=== PATIENT | female | born 1960 | race Caucasian/White ===

== ENCOUNTER → 2016-10-30 | Outpatient (CLI) | payer BC, OTHER ==
[2016-10-30 07:07] LABS: Blood Urea Nitrogen 16 mg/dL (7-17); Non-African American GFR(MDRD) >60 (>60 ml/min/1.73 sqM)
--- NOTE | 2016-10-30 09:14 | MR ---
EXAMINATION TYPE: MR lumbar spine wo/w con DATE OF EXAM: 10/30/2016 7:58 AM COMPARISON: MRI lumbar spine January 19, 2016 HISTORY: Lumbago per order, back pain going down left leg since September, surgery 2005 per patient. TECHNIQUE: Multiplanar, multisequence images of the lumbar spine is performed without and with IV contrast, util izing 14 mL intravenous MultiHance FINDINGS: Sagittal images of the lumbar spine show vertebral body heights and alignment to appear sat isfactory. Multilevel disc desiccation is redemonstrated. There is mild disc space narrowing posterio rly L4-L5 level redemonstrated. Small posterior disc herniation L3-L4 level as seen on sagittal image s slightly more prominent versus study. The conus medullaris is normal in position and signal ending at mid L1 vertebral body level. The bone marrow signal intensity is within normal limits. No suspici ous postcontrast enhancement is identified. Mild multilevel anterior spurring is redemonstrated. Axial images show the T12-L1, L1-L2, and L2-L3 levels all to remain within normal limits with excepti on of multilevel mild facet arthropathy, no significant change from prior. Axial images at L3-L4 level show mild broad disc bulge mildly effacing the anterior thecal sac slight ly more prominent with mild facet degenerative changes redemonstrated bilaterally. Bilateral neural f oramina remain patent. Axial images at L4-L5 level redemonstrate increased signal in left posterior aspect consistent with a nnular tear. There is mild to moderate broad disc bulge with a slightly more prominent left foraminal disc protrusion component redemonstrated. There are mild to moderate facet degenerative changes rede monstrated bilaterally with ligamentum flavum hypertrophy. There is is persistent mild left greater t bonilla right anterior-inferior neural foraminal narrowing redemonstrated. No significant change from jaylon or study is seen. Axial images at L5-S1 level redemonstrate mild to moderate facet degenerative changes bilaterally. Sp inal canal is preserved and bilateral neural foramina are patent. Findings stable from prior. Distal common bile duct measures 11-13 mm in diameter perhaps mildly dilated in patient after cholecy stectomy but felt unchanged from prior. A few subcentimeter simple appearing cysts are felt present i n both kidneys with areas of nonenhancement identified for reference axial image 27 left kidney. IMPRESSION: Some multilevel degenerative changes in the lumbar spine as detailed above, some progress ion in disc herniation L3-L4 level is felt present otherwise no significant change is seen.
== END | disposition home or self-care (01) ==
LOC: RADMRIMAIN 06:42
PROVIDERS: ATTEND Psychiatry & Neurology Pain Medicine
DX: M51.26 Other intervertebral disc displacement, lumbar region (principal); M47.816 Spondylosis without myelopathy or radiculopathy, lumbar region
CPT/HCPCS: 82565; 84520; 72158; 36415; A9577

== ENCOUNTER → 2017-06-03 | Outpatient (CLI) | payer OTHER ==
--- NOTE | 2017-06-03 14:38 | MR ---
EXAMINATION TYPE: MR brain wo con DATE OF EXAM: 06/03/2017 COMPARISON: NONE HISTORY: Facial numbness, stroke T1-weighted sagittal, T2, FLAIR, and diffusion axial, and T2 coronal coronal views of the brain are s ubmitted. There is no evidence of acute ischemia. The ventricles, basal cisterns, and sulci overlying the conv exities are consistent with the patient's age. There is no mass effect. Craniocervical junction maintained. Sella turcica has a normal appearance. There are a few scattered areas of abnormal signal within the white matter bilaterally. Changes of chronic sinusitis with nasal septal deviation noted. No cerebellopontine angle mass. IMPRESSION: 1. No acute intracranial process 2. A few scattered areas of nonspecific white matter findings. Differential diagnosis would include h ypertension, remote microvascular ischemia. Other etiologies including demyelinating process not enti rely excluded. Correlate clinically.
== END | disposition home or self-care (01) ==
LOC: RADMRIMAIN 13:31
PROVIDERS: ATTEND Physician Assistant
DX: I67.82 Cerebral ischemia (principal); I10 Essential (primary) hypertension
CPT/HCPCS: 70551

== ENCOUNTER → 2017-07-25 | Outpatient (CLI) | payer OTHER ==
--- NOTE | 2017-07-25 08:01 | US ---
EXAMINATION TYPE: US abdomen complete DATE OF EXAM: 07/25/2017 COMPARISON: CT of 12-05-14. CLINICAL HISTORY: R79.9 Abnormal Labs. Bloating, pt unsure of which labs were abnormal, cholecystecto my EXAM MEASUREMENTS: Liver Length: 14.6 cm Gallbladder Wall: Surgically absent CBD: 1.2 cm Spleen: 9.6 cm Right Kidney: 9.7 x 4.0 x 4.5 cm Left Kidney: 10.9 x 3.6 x 5.7 cm Pancreas: wnl Liver: wnl Gallbladder: Surgically absent Evidence for sonographic Mcclellan's sign: NO CBD: dilated, noted on 2015 CT Spleen: wnl Right Kidney: wnl Left Kidney: wnl Upper IVC: wnl Abd Aorta: bowel gas limits view, areas seen appears wnl The liver is homogenous. The intrahepatic portion of the IVC and proximal abdominal aorta are within normal limits. Common bile duct is unremarkable. The visualized portions of the pancreas are homo genous. The spleen is unremarkable. Kidneys are symmetric and free of hydronephrosis. No renal les ions are seen. IMPRESSION: Dilated common bile duct, likely related to the postcholecystectomy status as this was pr esent on the prior CT of 2014. Otherwise, unremarkable exam.
== END | disposition home or self-care (01) ==
LOC: RADUSWWP 06:46
PROVIDERS: ATTEND Family Medicine
DX: K83.8 Other specified diseases of biliary tract (principal)
CPT/HCPCS: 76700

== ENCOUNTER 2017-09-15 10:50 | Day surgery (SDC) | payer OTHER ==
[2017-09-09 15:08] VITALS: BMI 25.2
[~2017-09-15 10:50] MED LIST: ALPRAZolam 0.25 MG TAB PO PRN; ALPRAZolam 0.5 MG TAB PO PRN; ASPIRIN 325 MG TAB PO STA; NITROGLYCERIN SL TABS 0.4 MG TAB SUBLINGUAL PRN; SODIUM CHLORIDE 0.9% 1,000 ML in EMPTY BAG 1 BAG IV ONE
[2017-09-15] MEDS ORDERED: ASPIRIN 81 MG ONE (11:09)
[2017-09-15 11:18] VITALS: RESP 18
[2017-09-15 11:30] LABS: Basophils % (A) 0 %; CH 33.7; CHCM 33.3; Eosinophils # (A) 0.1 k/uL (0-0.7); Eosinophils % (A) 1 %; HDW 2.52; HGB 13.3 gm/dL (11.4-16.0); Luc % (Auto) 1; Lymphocytes # (A) 1.7 k/uL (1.0-4.8); Lymphocytes % (A) 13 %; MCHC 32.4 g/dL (31.0-37.0); MCV 101.8 fL (80.0-100.0); Macrocytosis Slight; Mean Platelet Volume 7.4; Monocytes # (A) 0.2 k/uL (0-1.0); Monocytes % (A) 2 %; Neutrophils # (A) 11.4 k/uL (1.3-7.7); Neutrophils % (A) 84 %; RBC 4.03 m/uL (3.80-5.40); RDW 12.9 % (11.5-15.5); WBC 13.7 k/uL (3.8-10.6); WBC (Perox) 13.31
[2017-09-15 11:47] LABS: Calcium 9.9 mg/dL (8.4-10.2); Potassium 4.6 mmol/L (3.5-5.1)
[2017-09-15] MEDS ORDERED: HYDROcodone/APAP 10-325MG 1 EACH TAB ONE (12:43)
[2017-09-15] MEDS ORDERED: VERAPAMIL 2.5 MG/ML 2 ML AMP ONE (12:58)
[2017-09-15] MEDS ORDERED: LIDOCAINE 2% INJ 20 MG/ML (20 ML MDV) ONE (12:58)
[2017-09-15] MEDS ORDERED: MIDAZOLAM 2 MG/2 ML VIAL ONE (12:58)
[2017-09-15] MEDS: MIDAZOLAM 2 MG/2 ML VIAL IV ONE ×2 (13:03→13:07)
[2017-09-15] MEDS ORDERED: LIDOCAINE 2% INJ 20 MG/ML SQ ONE (13:07)
[2017-09-15] MEDS ORDERED: fentaNYL (PF) 50 MCG/ML 2 ML AMP ONE (13:11)
[2017-09-15] MEDS ORDERED: fentaNYL (PF) 50 MCG/ML 2 ML AMP IV ONE (13:13)
[2017-09-15] MEDS ORDERED: RX INFO: IV CONTRAST WAS GIVEN 1 EACH MISC MISCELLANE PRN (13:24)
[2017-09-15] MEDS ORDERED: SODIUM CHLORIDE 0.9% 1,000 ML IV SCH (13:30)
[2017-09-15] MEDS ORDERED: IODIXANOL 320 MG/ML 100 ML INTRAARTER ONE (13:31)
--- NOTE | 2017-09-15 14:42 | CC ---
CARDIAC CATHETERIZATION REPORT DATE OF SERVICE: 09/15/2017 PERFORMING PHYSICIAN: Filemon Li MD, Instrument Repair Specialist. PROCEDURE PERFORMED: 1. Selective right and left coronary angiogram. 2. Left heart catheterization. INDICATION: This is a pleasant 56-year-old female patient who is known to have coronary artery disease and prior stenting of the left circumflex in 2011, was not feeling well lately. She was feeling tired and fatigued. She was experiencing exertional dyspnea and chest discomfort. Reminded her with what she had in the past. She underwent a stress test, which came in to be unremarkable, but in view of the persistent of her symptoms, I recommended proceeding with a heart catheterization. APPROACH: Right common femoral artery. COMPLICATION: None. LEVEL OF SEDATION: Moderate with a sedation length of 15 minutes. PROCEDURE DESCRIPTION: After obtaining informed consent, the patient was brought to [facility]. The right common femoral artery was cannulated using micropuncture technique. The micropuncture wire passed easily, then I placed a 6-Polish sheath in the right radial artery. After that, I did selective right and left coronary angiogram using JR4 and JL4 catheters. After that, I did left heart catheterization using the JR4 catheter, which flipped into the LV. Then I did the pullback per protocol. The procedure was completed without any complication. SELECTIVE CORONARY ANGIOGRAM: 1. The right coronary artery is a medium caliber vessel and it is a nondominant vessel. The RCA is angiographically normal. 2. The left main is angiographically normal. It bifurcates into the circumflex and left anterior descending artery. 3. The left circumflex is a large caliber vessel and it is a nondominant vessel. The proximal left circumflex appeared to be normal and gives rise into a medium size first obtuse marginal branch which appeared to be angiographically normal. The mid left circumflex is stented and the stent is patent. The left circumflex distally appeared to be angiographically normal. 4. The left anterior descending artery, the proximal LAD appeared to be angiographically normal and gives rise into a large diagonal branch which seems to be angiographically normal. The mid LAD is normal and the LAD distally is angiographically normal. HEMODYNAMICS: The left ventricular end-diastolic pressure was 10 mmHg and no gradient was seen across the aortic valve. CONCLUSION: Patent stent in the mid left circumflex coronary artery. POSTPROCEDURE MANAGEMENT: Medical treatment and follow up with the patient. MMELANAL / IJN: [id number] /
--- NOTE | 2017-09-15 17:57 | LTR ---
DATE OF SERVICE: September 15, 2017. Dear Raad: Ms. Dee Cummings underwent a heart catheterization and that revealed patent stent in the mid left circumflex without any residual coronary artery disease in the RCA or LAD. I want to thank you for allowing me to participate in her care and please do not hesitate to call if you have any questions or concern. Sincerely, LUISA / NAMN: [id number] /
[2017-09-15] MEDS ORDERED: ACETAMINOPHEN TAB 325 MG TAB PO PRN (19:35)
[2017-09-15 19:39] VITALS: BP 106/61; PULSE 90; TEMP 98.4
== END 2017-09-15 20:35 | disposition home or self-care (01) ==
LOC: CATHCVL 10:50 → 3OBS 13:25 → CATHCVL 20:35
PROVIDERS: ATTEND Internal Medicine Interventional Cardiology
DX: R06.09 Other forms of dyspnea (principal); R94.39 Abnormal result of other cardiovascular function study; I25.10 Atherosclerotic heart disease of native coronary artery without angina pectoris; I10 Essential (primary) hypertension; Z87.891 Personal history of nicotine dependence; Z95.5 Presence of coronary angioplasty implant and graft; E78.5 Hyperlipidemia, unspecified; Z79.82 Long term (current) use of aspirin; Z79.1 Long term (current) use of non-steroidal anti-inflammatories (NSAID); Z79.899 Other long term (current) drug therapy; Z88.5 Allergy status to narcotic agent; Z88.0 Allergy status to penicillin; Z88.8 Allergy status to other drugs, medicaments and biological substances
CPT/HCPCS: 93458; 80048; 85025; C1769 ×3; C1894; J2001; J2250; Q9967; J3010

== ENCOUNTER 2018-02-12 11:16 | Emergency (ER) | payer OTHER ==
[2018-02-12 11:30] VITALS: TEMP 98.1
--- NOTE | 2018-02-12 12:37 | ED ---
General Adult HPI - General Chief complaint: Recheck/Abnormal Lab/Rx Stated complaint: facial numbness/head pain Time Seen by Provider: 02/12/18 12:06 Source: patient, RN notes reviewed Mode of arrival: ambulatory Limitations: no limitations - History of Present Illness Initial comments: This is a 57-year-old female presents emergency Department chief complaint of right-sided facial pain and numbness. Patient states symptoms started one week ago. Patient call neurologist sent here for further evaluation. Patient states that she's had a CVA in the past. She states she has shortly after she had an MRI. Patient denies any current chest pain, shortness breath, focal weakness. She states it only affected on her right side from the top of her forehead to her mid cheek. Patient denies any rashes. She does have some pain in her occipital region on the right side. Patient denies any nausea vomiting diarrhea constipation. No fevers or chills no neck pain. - Related Data Home Medications Medication Instructions Recorded Confirmed Aspirin 81 mg PO DAILY 08/22/14 02/12/18 Cyclobenzaprine [Flexeril] 10 mg PO BID 08/22/14 02/12/18 Gabapentin 800 mg PO TID 08/22/14 02/12/18 Ibuprofen [Motrin] 800 mg PO TID 08/22/14 02/12/18 Metoprolol Tartrate 12.5 mg PO BID 08/22/14 02/12/18 Nitroglycerin Sl Tabs [Nitrostat] 0.4 mg SUBLINGUAL Q5M PRN 08/22/14 02/12/18 Omeprazole [PriLOSEC] 20 mg PO AC-BRKFST 08/22/14 02/12/18 Verapamil [Isoptin] 80 mg PO TID 08/22/14 02/12/18 traMADol HCl [Ultram] 50 mg PO BID PRN 08/22/14 02/12/18 Citalopram Hydrobromide [CeleXA] 20 mg PO BID 12/05/14 02/12/18 diphenhydrAMINE HCL [Benadryl] 25 mg PO BID 09/09/17 02/12/18 HYDROcodone/APAP 10-325MG [[place] 1 tab PO TID 09/15/17 02/12/18 10-325] Atorvastatin [Lipitor] 80 mg PO HS 02/12/18 02/12/18 Allergies Allergy/AdvReac Type Severity Reaction Status Date / Time adhesive Allergy BLISTERS Verified 02/12/18 12:19 Iodine and Iodide Containing Allergy Unknown Verified 02/12/18 12:19 Produc morphine Allergy Swelling Verified 02/12/18 12:19 Penicillins Allergy Swelling Verified 02/12/18 12:19 Review of Systems ROS Statement: Those systems with pertinent positive or pertinent negative responses have been documented in the HPI. ROS Other: All systems not noted in ROS Statement are negative. Past Medical History Past Medical History: Coronary Artery Disease (CAD), Cancer, CVA/TIA, GERD/ Reflux, Hypertension, Myocardial Infarction ([place]) Additional Past Medical History / Comment(s): hx cervical cancer, hypoglycemia, lower back and pelvic pain Last Myocardial Infarction Date:: 07/19/2011 History of Any Multi-Drug Resistant Organisms: None Reported Past Surgical History: Back Surgery, Cholecystectomy, Heart Catheterization With Stent, Hysterectomy, Orthopedic Surgery, Tubal Ligation Additional Past Surgical History / Comment(s): RIGHT WRIST, LAPAROSCOPIC SURGERY , heart stent x2 Past Anesthesia/Blood Transfusion Reactions: No Reported Reaction Date of Last Stent Placement:: 07/19/2011 Past Psychological History: Anxiety, Depression Smoking Status: Former smoker Past Alcohol Use History: None Reported Past Drug Use History: None Reported - Past Family History Mother Family Medical History: Cancer Additional Family Medical History / Comment(s): tongue General Exam Limitations: no limitations General appearance: alert, in no apparent distress Head exam: Present: atraumatic, normocephalic, normal inspection Eye exam: Present: normal appearance, PERRL, EOMI. Absent: scleral icterus, conjunctival injection, periorbital swelling, periorbital tenderness ENT exam: Present: normal exam, normal oropharynx, mucous membranes moist, TM's normal bilaterally, normal external ear exam Neck exam: Present: normal inspection, full ROM. Absent: tenderness, meningismus, lymphadenopathy Respiratory exam: Present: normal lung sounds bilaterally. Absent: respiratory distress, wheezes, rales, rhonchi, stridor Cardiovascular Exam: Present: regular rate, normal rhythm, normal heart sounds. Absent: systolic murmur, diastolic murmur, rubs, gallop, clicks Extremities exam: Present: normal inspection, full ROM, normal capillary refill. Absent: tenderness, pedal edema, joint swelling, calf tenderness Neurological exam: Present: alert, oriented X3, CN II-XII intact, reflexes normal, other (Finger to nose intact bilaterally without overshooting. NIH 0 GCS 15). Absent: motor sensory deficit Expanded Patient oriented to: Present: person, place, time Speech: Present: fluid speech Cranial nerves: EOM's Intact: Normal, Gag Reflex: Normal, Tongue Deviation: Normal, Nystagmus: Normal, Facial Sensation: Normal Cerebellar function: Finger to Nose: Normal, Heel to [place]: Normal Motor strength exam: RUE: 5, LUE: 5, RLE: 5, LLE: 5 Eye Response: (4) open spontaneously Motor Response: (6) obeys commands Verbal Response: (5) oriented David Total: 15 Skin exam: Present: warm, dry, intact, normal color. Absent: rash Course Vital Signs 02/12/18 02/12/18 11:27 14:37 Temperature 98.1 F Pulse Rate 77 73 Respiratory 20 18 Rate Blood Pressure 107/65 138/79 O2 Sat by Pulse 96 94 L Oximetry Medical Decision Making - Medical Decision Making 57-year-old female presented for facial numbness. Patient is present for 1 week. Patient has a normal neuro exam CT, lab work unremarkable than mild low- normal potassium. Patient will be given a dose here. Case discussed with Dr. Vitale. Patient will follow-up with Dr. Diza. There is concern for possible trigeminal neuralgia. - Lab Data Result diagrams: 02/12/18 13:00 02/12/18 13:00 Lab Results 02/12/18 02/12/18 02/12/18 Range/Units 13:00 13:00 13:00 WBC 7.8 (3.8-10.6) k/uL RBC 3.97 (3.80-5.40) m/uL Hgb 12.8 (11.4-16.0) gm/dL Hct 39.0 (34.0-46.0) % MCV 98.2 (80.0-100.0) fL MCH 32.3 (25.0-35.0) pg MCHC 32.8 (31.0-37.0) g/dL RDW 13.3 (11.5-15.5) % Plt Count 267 (150-450) k/uL Neutrophils % 35 % Lymphocytes % 55 % Monocytes % 5 % Eosinophils % 4 % Basophils % 0 % Neutrophils # 2.7 (1.3-7.7) k/uL Lymphocytes # 4.3 (1.0-4.8) k/uL Monocytes # 0.4 (0-1.0) k/uL Eosinophils # 0.3 (0-0.7) k/uL Basophils # 0.0 (0-0.2) k/uL Manual Slide Review Performed PT (9.0-12.0) sec INR (<1.2) APTT (22.0-30.0) sec Sodium 146 H (137-145) mmol/L Potassium 3.8 (3.5-5.1) mmol/L Chloride 111 H (98-107) mmol/L Carbon Dioxide 22 (22-30) mmol/L Anion Gap 13 mmol/L BUN 17 (7-17) mg/dL Creatinine 0.78 (0.52-1.04) mg/dL Est GFR (CKD-EPI)AfAm >90 (>60 ml/min/1.73 sqM) Est GFR (CKD-EPI)NonAf 85 (>60 ml/min/1.73 sqM) Glucose 107 H (74-99) mg/dL Calcium 9.3 (8.4-10.2) mg/dL Total Bilirubin 0.2 (0.2-1.3) mg/dL AST 16 (14-36) U/L ALT 38 (9-52) U/L Alkaline Phosphatase 84 (38-126) U/L Total Creatine Kinase 57 (30-135) U/L CK-MB (CK-2) 0.5 (0.0-2.4) ng/mL CK-MB (CK-2) Rel Index 0.9 Troponin I <0.012 (0.000-0.034) ng/mL Total Protein 6.6 (6.3-8.2) g/dL Albumin 4.2 (3.5-5.0) g/dL 02/12/18 Range/Units 13:00 WBC (3.8-10.6) k/uL RBC (3.80-5.40) m/uL Hgb (11.4-16.0) gm/dL Hct (34.0-46.0) % MCV (80.0-100.0) fL MCH (25.0-35.0) pg MCHC (31.0-37.0) g/dL RDW (11.5-15.5) % Plt Count (150-450) k/uL Neutrophils % % Lymphocytes % % Monocytes % % Eosinophils % % Basophils % % Neutrophils # (1.3-7.7) k/uL Lymphocytes # (1.0-4.8) k/uL Monocytes # (0-1.0) k/uL Eosinophils # (0-0.7) k/uL Basophils # (0-0.2) k/uL Manual Slide Review PT 10.0 (9.0-12.0) sec INR 1.0 (<1.2) APTT 23.7 (22.0-30.0) sec Sodium (137-145) mmol/L Potassium (3.5-5.1) mmol/L Chloride (98-107) mmol/L Carbon Dioxide (22-30) mmol/L Anion Gap mmol/L BUN (7-17) mg/dL Creatinine (0.52-1.04) mg/dL Est GFR (CKD-EPI)AfAm (>60 ml/min/1.73 sqM) Est GFR (CKD-EPI)NonAf (>60 ml/min/1.73 sqM) Glucose (74-99) mg/dL Calcium (8.4-10.2) mg/dL Total Bilirubin (0.2-1.3) mg/dL AST (14-36) U/L ALT (9-52) U/L Alkaline Phosphatase (38-126) U/L Total Creatine Kinase (30-135) U/L CK-MB (CK-2) (0.0-2.4) ng/mL CK-MB (CK-2) Rel Index Troponin I (0.000-0.034) ng/mL Total Protein (6.3-8.2) g/dL Albumin (3.5-5.0) g/dL Disposition Clinical Impression: Facial paresthesia Disposition: HOME SELF-CARE Condition: Stable Instructions: Paresthesia (ED) Additional Instructions: Please return to the Emergency Department if symptoms worsen or any other concerns. Is patient prescribed a controlled substance at d/c from ED?: No Referrals: Raad Best DO [Primary Care Provider] - 1-2 days Janis Diaz MD [STAFF PHYSICIAN] - 1-2 days Time of Disposition: 14:41
[2018-02-12 13:22] LABS: ALT 38 U/L (9-52); AST 16 U/L (14-36); Albumin 4.2 g/dL (3.5-5.0); Alkaline Phosphatase 84 U/L (38-126); Anion Gap 13 mmol/L; Blood Urea Nitrogen 17 mg/dL (7-17); Calcium 9.3 mg/dL (8.4-10.2); Carbon Dioxide 22 mmol/L (22-30); Chloride 111 mmol/L (98-107); Glucose 107 mg/dL (74-99); Potassium 3.8 mmol/L (3.5-5.1); Sodium 146 mmol/L (137-145); Total Bilirubin 0.2 mg/dL (0.2-1.3); Total Protein 6.6 g/dL (6.3-8.2)
[2018-02-12 13:23] LABS: Partial Thromboplastin Time 23.7 sec (22.0-30.0)
--- NOTE | 2018-02-12 13:23 | CT ---
EXAMINATION TYPE: CT brain wo con DATE OF EXAM: 02/12/2018 COMPARISON: NONE INDICATION: Rt sided facial numbness, tenderness to head DLP: 927.4 mGycm, Automated exposure control for dose reduction was used. CONTRAST: None CT of the brain is performed utilizing 3 mm thick sections through the posterior fossa and 3 mm thick sections through the remaining calvarium. Study is performed within 24 hours of arrival to the hosp [facility]. Most portion of the posterior fossa is excluded from the [id number] on the axial plane. No abnormal hyperdensity is present to suggest an acute intracranial hemorrhage. No mass lesion is evident. No acute infarcts are evident. Ventricles and sulci are appropriate for the patient age. Paranasal sinuses and mastoid air cells within the [id number] are clear. IMPRESSIONS: 1. Normal CT Brain
[2018-02-12 13:28] LABS: Basophils % (A) 0 %; Eosinophils # (A) 0.3 k/uL (0-0.7); Eosinophils % (A) 4 %; HGB 12.8 gm/dL (11.4-16.0); Lymphocytes # (A) 4.3 k/uL (1.0-4.8); Lymphocytes % (A) 55 %; MCH 32.3 pg (25.0-35.0); MCHC 32.8 g/dL (31.0-37.0); MCV 98.2 fL (80.0-100.0); Mean Platelet Volume 7.3; Monocytes # (A) 0.4 k/uL (0-1.0); Monocytes % (A) 5 %; Neutrophils # (A) 2.7 k/uL (1.3-7.7); Neutrophils % (A) 35 %; Platelet Count 267 k/uL (150-450); RBC 3.97 m/uL (3.80-5.40); RDW 13.3 % (11.5-15.5); WBC 7.8 k/uL (3.8-10.6)
[2018-02-12 13:40] LABS: Creatine Kinase 57 U/L (30-135)
[2018-02-12 13:53] LABS: Creatine Kinase MB 0.5 ng/mL (0.0-2.4); Troponin I <0.012 ng/mL (0.000-0.034)
[2018-02-12 14:38] VITALS: BP 138/79; PULSE 73; RESP 18
[2018-02-12] MEDS ORDERED: POTASSIUM CHLORIDE ER 20 MEQ TAB.ER PO STA (14:39)
== END 2018-02-12 14:47 | disposition home or self-care (01) ==
LOC: EC 11:16
DX: R20.2 Paresthesia of skin (principal); R51 Headache; R40.2410 Glasgow coma scale score 13-15, unspecified time; K21.9 Gastro-esophageal reflux disease without esophagitis; I25.2 Old myocardial infarction; Z86.73 Personal history of transient ischemic attack (TIA), and cerebral infarction without residual deficits; I10 Essential (primary) hypertension; F32.9 Major depressive disorder, single episode, unspecified; F41.9 Anxiety disorder, unspecified; I25.10 Atherosclerotic heart disease of native coronary artery without angina pectoris; Z88.0 Allergy status to penicillin; Z88.5 Allergy status to narcotic agent; Z91.048 Other nonmedicinal substance allergy status; Z87.891 Personal history of nicotine dependence; Z79.1 Long term (current) use of non-steroidal anti-inflammatories (NSAID); Z79.82 Long term (current) use of aspirin; Z79.891 Long term (current) use of opiate analgesic; Z79.899 Other long term (current) drug therapy
CPT/HCPCS: 36415; 70450; 80053; 82550; 82553; 84484; 85025; 85610; 85730; 99284

== ENCOUNTER 2018-03-31 19:22 | Emergency (ER) | payer BC, OTHER ==
[2018-03-31 19:45] VITALS: BP 104/78; PULSE 98; RESP 18; TEMP 98.3
--- NOTE | 2018-03-31 19:56 | ED ---
Lower Extremity Injury HPI - General Chief Complaint: Extremity Injury, Lower Stated Complaint: Ankle injury Time Seen by Provider: 03/31/18 19:50 Source: patient, RN notes reviewed Mode of arrival: ambulatory Limitations: no limitations - History of Present Illness Initial Comments: This is a 57-year-old female who presents to the emergency department with chief complaint of right ankle injury. Patient states that she felt like her right foot was asleep and when she got up from her recliner she fell and heard a crack in her right ankle. Patient states that she has broken her right ankle 3 times in the past and that it is very weak. She reports tenderness and swelling to the lateral aspect of the ankle. Denies any other injuries or trauma. Denies head, neck or back pain. Denies recent fevers or chills, chest pain or shortness breath, abdominal pain, nausea or vomiting. - Related Data Home Medications Medication Instructions Recorded Confirmed Aspirin 81 mg PO DAILY 08/22/14 02/12/18 Cyclobenzaprine [Flexeril] 10 mg PO BID 08/22/14 02/12/18 Gabapentin 800 mg PO TID 08/22/14 02/12/18 Ibuprofen [Motrin] 800 mg PO TID 08/22/14 02/12/18 Metoprolol Tartrate 12.5 mg PO BID 08/22/14 02/12/18 Nitroglycerin Sl Tabs [Nitrostat] 0.4 mg SUBLINGUAL Q5M PRN 08/22/14 02/12/18 Omeprazole [PriLOSEC] 20 mg PO AC-BRKFST 08/22/14 02/12/18 Verapamil [Isoptin] 80 mg PO TID 08/22/14 02/12/18 traMADol HCl [Ultram] 50 mg PO BID PRN 08/22/14 02/12/18 Citalopram Hydrobromide [CeleXA] 20 mg PO BID 12/05/14 02/12/18 diphenhydrAMINE HCL [Benadryl] 25 mg PO BID 09/09/17 02/12/18 HYDROcodone/APAP 10-325MG [[place] 1 tab PO TID 09/15/17 02/12/18 10-325] Atorvastatin [Lipitor] 80 mg PO HS 02/12/18 02/12/18 Allergies Allergy/AdvReac Type Severity Reaction Status Date / Time adhesive Allergy BLISTERS Verified 03/31/18 20:02 Iodine and Iodide Containing Allergy Unknown Verified 03/31/18 20:02 Produc morphine Allergy Swelling Verified 03/31/18 20:02 Penicillins Allergy Swelling Verified 03/31/18 20:02 Review of Systems ROS Statement: Those systems with pertinent positive or pertinent negative responses have been documented in the HPI. ROS Other: All systems not noted in ROS Statement are negative. Past Medical History Past Medical History: Coronary Artery Disease (CAD), Cancer, CVA/TIA, GERD/ Reflux, Hypertension, Myocardial Infarction ([place]) Additional Past Medical History / Comment(s): hx cervical cancer, hypoglycemia, lower back and pelvic pain Last Myocardial Infarction Date:: 07/19/2011 History of Any Multi-Drug Resistant Organisms: None Reported Past Surgical History: Back Surgery, Cholecystectomy, Heart Catheterization With Stent, Hysterectomy, Orthopedic Surgery, Tubal Ligation Additional Past Surgical History / Comment(s): RIGHT WRIST, LAPAROSCOPIC SURGERY , heart stent x2 Past Anesthesia/Blood Transfusion Reactions: No Reported Reaction Date of Last Stent Placement:: 07/19/2011 Past Psychological History: Anxiety, Depression Smoking Status: Former smoker Past Alcohol Use History: None Reported Past Drug Use History: None Reported - Past Family History Mother Family Medical History: Cancer Additional Family Medical History / Comment(s): tongue General Exam - General Exam Comments Initial Comments: General: Awake and alert, well-developed; in no apparent distress. Sitting sitting comfortably on ED stretcher playing a game on her cell phone. HEENT: Head atraumatic, normocephalic. Pupils are equal, round and reactive to light. Extraocular movements intact. Oropharynx moist without erythema or exudate. Neck: Supple. Normal ROM. Cardiovascular: Regular rate and rhythm. No murmurs, rubs or gallops. Chest symmetrical. Respiratory: Lungs clear to auscultation bilaterally. No wheezes, rales or rhonchi. Normal respiratory effort with no use of accessory muscles. Musculoskeletal: Normal range of motion of the right ankle. There is tenderness and soft tissue swelling surrounding the lateral malleolus. No medial malleolar tenderness. No proximal leg tenderness or foot tenderness. Patient is ambulating. Sensation is intact. Pedal pulses are 2+ equal and palpable bilaterally. Skin: [place], warm and dry without rashes or lesions. Neurological: Alert and oriented x3. CN II-XII grossly intact. Speech is fluent and answers are appropriate. No focal neuro deficits. Psychiatric: Normal mood and affect. No overt signs of depression or anxiety noted. Limitations: no limitations Course Vital Signs 03/31/18 19:42 Temperature 98.3 F Pulse Rate 98 Respiratory 18 Rate Blood Pressure 104/78 O2 Sat by Pulse 95 Oximetry Medical Decision Making - Medical Decision Making This is a 57-year-old female presents to the emergency department with chief complaint of right ankle injury. Patient has tenderness and swelling to the lateral malleolus. An x-ray was obtained which revealed no acute fractures or dislocations. Patient suffering from an ankle sprain. Recommended rest, ice, Tylenol, elevation and compression. Recommended following up with her primary care provider and/or orthopedics. Vital signs are stable and patient is in no acute distress. She will be discharged home at this time. All questions answered. - Radiology Data Radiology results: report reviewed X-ray right ankle impression: Soft tissue swelling laterally. No acute osseous abnormality. Follow-up exam can be performed 7-10 days from acute trauma for continued pain. Disposition Clinical Impression: Ankle sprain and strain Disposition: HOME SELF-CARE Condition: Good Instructions: Ankle Sprain (ED) Additional Instructions: Please rest, ice, elevate and take ibuprofen or Tylenol as needed. Please follow-up with Dr. Hernández, orthopedics if no improvement in symptoms. Please follow up with primary care provider within 1-2 days. Return to emergency department if symptoms should worsen or any concerns arise. Is patient prescribed a controlled substance at d/c from ED?: No Referrals: Raad Best DO [Primary Care Provider] - 1-2 days Ramon Hernández DO [Doctor of Osteopathic Medicine] - 1-2 days Time of Disposition: 20:29
--- NOTE | 2018-03-31 20:11 | XR ---
EXAMINATION TYPE: XR ankle complete RT DATE OF EXAM: 03/31/2018 COMPARISON: 03/07/2015 HISTORY: Pain TECHNIQUE: Three-view right ankle FINDINGS: No acute fractures are evident. Ankle mortise is intact. There is mild soft tissue swelling over the lateral malleolus. IMPRESSION: 1. Soft tissue swelling laterally. 2. No acute osseous abnormality. 3. Follow-up exam can be performed 7-10 days from acute trauma for continued pain.
== END 2018-03-31 20:35 | disposition home or self-care (01) ==
LOC: EC 19:22
DX: S93.401A Sprain of unspecified ligament of right ankle, initial encounter (principal); S96.911A Strain of unspecified muscle and tendon at ankle and foot level, right foot, initial encounter; I25.10 Atherosclerotic heart disease of native coronary artery without angina pectoris; K21.9 Gastro-esophageal reflux disease without esophagitis; I10 Essential (primary) hypertension; F41.9 Anxiety disorder, unspecified; F32.9 Major depressive disorder, single episode, unspecified; I25.2 Old myocardial infarction; Z87.891 Personal history of nicotine dependence; Z85.41 Personal history of malignant neoplasm of cervix uteri; Z86.73 Personal history of transient ischemic attack (TIA), and cerebral infarction without residual deficits; Z98.890 Other specified postprocedural states; Z79.1 Long term (current) use of non-steroidal anti-inflammatories (NSAID); Z79.82 Long term (current) use of aspirin; Z79.891 Long term (current) use of opiate analgesic; Z79.899 Other long term (current) drug therapy; Z88.0 Allergy status to penicillin; Z88.5 Allergy status to narcotic agent; Z91.048 Other nonmedicinal substance allergy status; X50.1XXA Overexertion from prolonged static or awkward postures, initial encounter; W18.39XA Other fall on same level, initial encounter
CPT/HCPCS: 73610; 99283; 29515; L4350

== ENCOUNTER 2018-04-28 09:03 | Emergency (ER) | payer BC ==
--- NOTE | 2018-04-28 09:25 | ED ---
Chest Pain HPI - General Chief Complaint: Chest Pain Stated Complaint: Chest Pain Time Seen by Provider: 04/28/18 09:09 Source: patient, RN notes reviewed Mode of arrival: wheelchair Limitations: no limitations - History of Present Illness Initial Comments: This is a 57-year-old female history of MO in the past with stents who states she's had chest pain past 4 days. She states is been sharp non-AF/10 in severity right sided sometimes radiating to the back again describes it as sharp or stabbing not related to any fevers chills cough phlegm production. Patient states she does not smoke cigarettes. She does state that she did have some trauma about 4 weeks ago she fell and tore the tendons in the right lower extremity she is in an orthopedic boot right now she states some of the pain as she may have started at that time. She has no other complaints at this time MD Complaint: chest pain - Related Data Home Medications Medication Instructions Recorded Confirmed Aspirin 81 mg PO DAILY 08/22/14 04/28/18 Cyclobenzaprine [Flexeril] 10 mg PO BID 08/22/14 04/28/18 Gabapentin 800 mg PO TID 08/22/14 04/28/18 Ibuprofen [Motrin] 800 mg PO TID 08/22/14 04/28/18 Metoprolol Tartrate 12.5 mg PO BID 08/22/14 04/28/18 Nitroglycerin Sl Tabs [Nitrostat] 0.4 mg SUBLINGUAL Q5M PRN 08/22/14 04/28/18 Omeprazole [PriLOSEC] 20 mg PO AC-BRKFST 08/22/14 04/28/18 Verapamil [Isoptin] 80 mg PO TID 08/22/14 04/28/18 traMADol HCl [Ultram] 50 mg PO BID PRN 08/22/14 04/28/18 Citalopram Hydrobromide [CeleXA] 20 mg PO BID 12/05/14 04/28/18 diphenhydrAMINE HCL [Benadryl] 25 mg PO BID 09/09/17 04/28/18 HYDROcodone/APAP 10-325MG [[place] 1 tab PO TID 09/15/17 04/28/18 10-325] Atorvastatin [Lipitor] 80 mg PO HS 02/12/18 04/28/18 Previous Rx's Medication Instructions Recorded Ibuprofen 800 mg PO Q6HR PRN #20 tablet 04/28/18 Allergies Allergy/AdvReac Type Severity Reaction Status Date / Time adhesive Allergy BLISTERS Verified 04/28/18 10:08 Iodine and Iodide Containing Allergy Unknown Verified 04/28/18 10:08 Produc morphine Allergy Swelling Verified 04/28/18 10:08 Penicillins Allergy Swelling Verified 04/28/18 10:08 Review of Systems ROS Statement: Those systems with pertinent positive or pertinent negative responses have been documented in the HPI. ROS Other: All systems not noted in ROS Statement are negative. EKG Findings - EKG Results: EKG: interpreted by LATOYNA, sinus rhythm (Normal sinus rhythm rate of 81. Interval 174 QRS duration 94 QT since QTC 390/453 this is a normal-appearing EKG.) Past Medical History Past Medical History: Coronary Artery Disease (CAD), Cancer, CVA/TIA, GERD/ Reflux, Hypertension, Myocardial Infarction ([place]) Additional Past Medical History / Comment(s): hx cervical cancer, hypoglycemia, lower back and pelvic pain Last Myocardial Infarction Date:: 07/19/2011 History of Any Multi-Drug Resistant Organisms: None Reported Past Surgical History: Back Surgery, Cholecystectomy, Heart Catheterization With Stent, Hysterectomy, Orthopedic Surgery, Tubal Ligation Additional Past Surgical History / Comment(s): RIGHT WRIST, LAPAROSCOPIC SURGERY , heart stent x2 Past Anesthesia/Blood Transfusion Reactions: No Reported Reaction Date of Last Stent Placement:: 07/19/2011 Past Psychological History: Anxiety, Depression Smoking Status: Former smoker Past Alcohol Use History: None Reported Past Drug Use History: None Reported - Past Family History Mother Family Medical History: Cancer Additional Family Medical History / Comment(s): tongue General Exam - General Exam Comments Initial Comments: This is a well-developed well-nourished awake alert oriented 3 female Limitations: no limitations General appearance: alert, anxious Head exam: Present: atraumatic, normocephalic, normal inspection Eye exam: Present: normal appearance, PERRL, EOMI. Absent: scleral icterus, conjunctival injection, periorbital swelling ENT exam: Present: normal exam, mucous membranes moist Neck exam: Present: normal inspection. Absent: tenderness, meningismus, lymphadenopathy Respiratory exam: Present: normal lung sounds bilaterally, chest wall tenderness (Reproducible tenderness palpation along the right costal chondral and costosternal margin. No step-off no crepitation.). Absent: respiratory distress, wheezes, rales, rhonchi, stridor Cardiovascular Exam: Present: regular rate, normal rhythm, normal heart sounds. Absent: systolic murmur, diastolic murmur, rubs, gallop, clicks GI/Abdominal exam: Present: soft, normal bowel sounds. Absent: distended, tenderness, guarding, rebound, rigid Extremities exam: Present: full ROM, normal capillary refill, other (Orthopedic boot is on the right lower extremity no other significant findings). Absent: tenderness, pedal edema, joint swelling, calf tenderness Back exam: Present: normal inspection Neurological exam: Present: alert, oriented X3, CN II-XII intact Psychiatric exam: Present: normal affect, normal mood Skin exam: Present: warm, dry, intact, normal color. Absent: rash Course Vital Signs 04/28/18 04/28/18 09:04 10:39 Temperature 98.5 F Pulse Rate 87 76 Respiratory 18 16 Rate Blood Pressure 115/69 109/70 O2 Sat by Pulse 94 L 96 Oximetry Chest Pain MDM - MDM I did review the imaging and report no acute findings are seen. The patient presentation is consistent with musculoskeletal pain/costochondritis she'll be placed on appropriate medication. She is follow-up with her doctor return when necessary Disposition Clinical Impression: Costalchondritis, Chest wall syndrome Disposition: HOME SELF-CARE Condition: Good Instructions: Costochondritis (ED) Prescriptions: Ibuprofen 800 mg PO Q6HR PRN #20 tablet PRN Reason: Pain Is patient prescribed a controlled substance at d/c from ED?: No Referrals: Raad Best DO [Primary Care Provider] - 1-2 days
[2018-04-28 09:35] LABS: Basophils % (A) 1 %; Eosinophils # (A) 0.3 k/uL (0-0.7); Eosinophils % (A) 4 %; HCT 36.2 % (34.0-46.0); Lymphocytes # (A) 4.1 k/uL (1.0-4.8); Lymphocytes % (A) 58 %; MCH 32.8 pg (25.0-35.0); MCV 99.3 fL (80.0-100.0); Mean Platelet Volume 6.9; Monocytes # (A) 0.3 k/uL (0-1.0); Monocytes % (A) 4 %; Neutrophils # (A) 2.3 k/uL (1.3-7.7); Neutrophils % (A) 32 %; Platelet Count 254 k/uL (150-450); RBC 3.64 m/uL (3.80-5.40); RDW 12.6 % (11.5-15.5); WBC 7.1 k/uL (3.8-10.6)
--- NOTE | 2018-04-28 09:38 | XR ---
EXAMINATION TYPE: XR chest 2V DATE OF EXAM: 04/28/2018 COMPARISON: 12/05/2014 HISTORY: Chest pain TECHNIQUE: Frontal and lateral views of the chest are obtained. FINDINGS: There is no focal air space opacity, pleural effusion, or pneumothorax seen. Pulmonary hyp erinflation and biapical lucency relates underlying COPD. Chronic linear left basilar subsegmental at electasis is unchanged from 2015. The cardiac silhouette size is within normal limits. The osseous structures are intact. Solitary surgical clip on the lateral image likely relates to prior cholecyste ctomy. IMPRESSION: No acute cardiopulmonary process. Chronic left basilar subsegmental atelectasis unchange d from 2014 and radiographic sequela of COPD.
[2018-04-28 09:45] LABS: Albumin 3.7 g/dL (3.5-5.0); Calcium 8.9 mg/dL (8.4-10.2); Magnesium 1.9 mg/dL (1.6-2.3); Potassium 4.1 mmol/L (3.5-5.1); Total Bilirubin 0.1 mg/dL (0.2-1.3); Total Protein 5.9 g/dL (6.3-8.2)
[2018-04-28 09:52] LABS: D-Dimer 0.54 mg/L FEU (<0.60); Partial Thromboplastin Time 23.2 sec (22.0-30.0); Prothrombin Time 9.8 sec (9.0-12.0)
[2018-04-28 10:04] LABS: Creatine Kinase 68 U/L (30-135)
[2018-04-28 10:17] LABS: Creatine Kinase MB 1.1 ng/mL (0.0-2.4); Troponin I <0.012 ng/mL (0.000-0.034)
[2018-04-28] MEDS ORDERED: KETOROLAC 30 MG/ML 1 ML VIAL IVP STA (10:49)
[2018-04-28 11:12] VITALS: BP 134/87; PULSE 87; RESP 18; TEMP 97.4
== END 2018-04-28 11:12 | disposition home or self-care (01) ==
LOC: EC 09:03
DX: M94.0 Chondrocostal junction syndrome [Tietze] (principal); I10 Essential (primary) hypertension; I25.10 Atherosclerotic heart disease of native coronary artery without angina pectoris; K21.9 Gastro-esophageal reflux disease without esophagitis; F32.9 Major depressive disorder, single episode, unspecified; F41.9 Anxiety disorder, unspecified; I25.2 Old myocardial infarction; Z87.891 Personal history of nicotine dependence; Z79.1 Long term (current) use of non-steroidal anti-inflammatories (NSAID); Z79.82 Long term (current) use of aspirin; Z79.891 Long term (current) use of opiate analgesic; Z79.899 Other long term (current) drug therapy; Z88.0 Allergy status to penicillin; Z88.5 Allergy status to narcotic agent; Z91.048 Other nonmedicinal substance allergy status; Z85.41 Personal history of malignant neoplasm of cervix uteri; Z90.710 Acquired absence of both cervix and uterus; Z95.5 Presence of coronary angioplasty implant and graft
CPT/HCPCS: 36415; 93005; 85379; 83880; 80053; 82150; 82550; 82553; 83690; 83735; 84484; 85025; 85610; 85730; 71046; 99285; 96374; J1885

== ENCOUNTER → 2018-05-14 | Outpatient (CLI) | payer BC ==
[2018-05-14 12:08] LABS: ALT 130 U/L (9-52); AST 89 U/L (14-36); Cholesterol 150 mg/dL (<200); HDL Cholesterol 43 mg/dL (40-60); LDL Cholesterol,Calculated 83 mg/dL (0-99); Triglycerides 118 mg/dL (<150)
== END | disposition home or self-care (01) ==
LOC: LABWHC1 11:08
PROVIDERS: ATTEND Internal Medicine Interventional Cardiology
DX: E78.2 Mixed hyperlipidemia (principal)
CPT/HCPCS: 36415; 80061; 84450; 84460

== ENCOUNTER → 2020-02-14 | Outpatient (CLI) | payer BC, OTHER ==
--- NOTE | 2020-02-14 13:15 | XR ---
EXAMINATION TYPE: XR chest 2V DATE OF EXAM: 02/14/2020 COMPARISON: 04/28/2018 INDICATION: Right rib injury TECHNIQUE: Frontal and lateral views of the chest are obtained. FINDINGS: The heart size is normal. The pulmonary vasculature is normal. There is mild diffuse increased lung markings greater on the right greater at the lower right base co mpared to prior study. Suspicious focal consolidation is not evident.. IMPRESSION: 1. Mild nonspecific diffuse increased lung markings greater on the right in the right base. Mild incr ease infiltrate is present at the left base as well. Findings are nonspecific. Consider atypical pneu monia. Atelectasis and minimal volume overload could be considered within the differential. 2. No pneumothorax or displaced rib fractures evident.
== END | disposition home or self-care (01) ==
LOC: RADXRMAIN 12:57
PROVIDERS: ATTEND Family Medicine
DX: R91.8 Other nonspecific abnormal finding of lung field (principal)
CPT/HCPCS: 71046

== ENCOUNTER 2020-02-28 10:22 | Emergency (ER) | payer BC, OTHER ==
[2020-02-28 10:41] VITALS: PULSE 82; RESP 20; TEMP 98.8
[2020-02-28] MEDS ORDERED: SODIUM CHLORIDE 0.9% 1,000 ML IV STA (11:02)
[2020-02-28] MEDS ORDERED: SODIUM CHLORIDE 0.9% 500 ML 500 ML IV STA (11:02)
--- NOTE | 2020-02-28 11:11 | ED ---
General Adult HPI - General Chief complaint: Extremity Problem,Nontraumatic Stated complaint: no fall, R knee pain Time Seen by Provider: 02/28/20 10:54 Source: patient, RN notes reviewed Mode of arrival: ambulatory Limitations: no limitations - History of Present Illness Initial comments: 59-year-old female presents to the emergency department for a chief complaining of right leg pain times one week. Patient states she felt a charley horse in the back of her leg and said to have severe pain. States she has pain in her knee as well. She has pain with ambulating on the knee. Also has pain with bending the knee. No fevers. No redness of the right knee. She does not take blood thinners. She denies injury to the right knee.patient states she does have a history of low blood pressure. Patient has no other complaints at this time including shortness of breath, chest pain, abdominal pain, nausea or vomiting, headache, or visual changes. - Related Data Home Medications Medication Instructions Recorded Confirmed Aspirin 81 mg PO DAILY 08/22/14 04/28/18 Cyclobenzaprine [Flexeril] 10 mg PO BID 08/22/14 04/28/18 Gabapentin 800 mg PO TID 08/22/14 04/28/18 Ibuprofen [Motrin] 800 mg PO TID 08/22/14 04/28/18 Metoprolol Tartrate 12.5 mg PO BID 08/22/14 04/28/18 Nitroglycerin Sl Tabs [Nitrostat] 0.4 mg SUBLINGUAL Q5M PRN 08/22/14 04/28/18 Omeprazole [PriLOSEC] 20 mg PO AC-BRKFST 08/22/14 04/28/18 Verapamil [Isoptin] 80 mg PO TID 08/22/14 04/28/18 traMADol HCl [Ultram] 50 mg PO BID PRN 08/22/14 04/28/18 Citalopram Hydrobromide [CeleXA] 20 mg PO BID 12/05/14 04/28/18 diphenhydrAMINE HCL [Benadryl] 25 mg PO BID 09/09/17 04/28/18 HYDROcodone/APAP 10-325MG [[place] 1 tab PO TID 09/15/17 04/28/18 10-325] Atorvastatin [Lipitor] 80 mg PO HS 02/12/18 04/28/18 Previous Rx's Medication Instructions Recorded Ibuprofen 800 mg PO Q6HR PRN #20 tablet 04/28/18 Allergies Allergy/AdvReac Type Severity Reaction Status Date / Time adhesive Allergy BLISTERS Verified 02/28/20 10:41 Iodine and Iodide Containing Allergy Unknown Verified 02/28/20 10:41 Produc morphine Allergy Swelling Verified 02/28/20 10:41 Penicillins Allergy Swelling Verified 02/28/20 10:41 Review of Systems ROS Statement: Those systems with pertinent positive or pertinent negative responses have been documented in the HPI. ROS Other: All systems not noted in ROS Statement are negative. Past Medical History Past Medical History: Coronary Artery Disease (CAD), Cancer, CVA/TIA, GERD/Reflux, Hypertension, Myocardial Infarction ([place]) Additional Past Medical History / Comment(s): hx cervical cancer, hypoglycemia, lower back and pelvic pain Last Myocardial Infarction Date:: 07/19/2011 History of Any Multi-Drug Resistant Organisms: None Reported Past Surgical History: Back Surgery, Cholecystectomy, Heart Catheterization With Stent, Hysterectomy, Orthopedic Surgery, Tubal Ligation Additional Past Surgical History / Comment(s): RIGHT WRIST, LAPAROSCOPIC SURGERY, heart stent x2 Past Anesthesia/Blood Transfusion Reactions: No Reported Reaction Date of Last Stent Placement:: 07/19/2011 Past Psychological History: Anxiety, Depression Smoking Status: Former smoker Past Alcohol Use History: None Reported Past Drug Use History: None Reported - Past Family History Mother Family Medical History: Cancer Additional Family Medical History / Comment(s): tongue General Exam Limitations: no limitations General appearance: alert, in no apparent distress Head exam: Present: atraumatic, normocephalic, normal inspection Eye exam: Present: normal appearance, PERRL, EOMI. Absent: scleral icterus, conjunctival injection, periorbital swelling ENT exam: Present: normal exam, mucous membranes moist Neck exam: Present: normal inspection, full ROM. Absent: tenderness, meningismus Respiratory exam: Present: normal lung sounds bilaterally. Absent: respiratory distress, wheezes, rales, rhonchi, stridor Cardiovascular Exam: Present: regular rate, normal rhythm, normal heart sounds. Absent: systolic murmur, diastolic murmur, rubs, gallop, clicks GI/Abdominal exam: Present: soft, normal bowel sounds. Absent: distended, tenderness, guarding, rebound, rigid Extremities exam: Present: tenderness (Tenderness is noted to the posterior knee.), normal capillary refill (Capillary refill less than 2 seconds, and DP pulse is 2+ in the right lower extremity.), joint swelling (Patient has mild edema of the right knee without erythema or increased warmth.), other (Sensation intact in the right lower extremity.). Absent: full ROM (Patient able to fully extend the right knee. Able to flex right knee to 90.), pedal edema, calf tenderness Course Vital Signs 02/28/20 10:39 Temperature 98.8 F Pulse Rate 82 Respiratory 20 Rate Blood Pressure 89/58 O2 Sat by Pulse 99 Oximetry EKG Findings - EKG Comments: EKG Findings:: Normal sinus rhythm, ventricular rate 70, ID [id number], QTC 434 Medical Decision Making - Medical Decision Making 59-year-old female presents to the emergency department for chief complaint of right knee pain and swelling. Patient states this has been ongoing for over a week now. She denies any injury. She denies any fever. On examination of the right knee there is mild edema however no increased warmth. No erythema. Patient is able to flex the right knee to 90. Neurovascular status intact in the right lower extremity. I do not see any sign of a septic joint. CBC CMP are unremarkable. Patient does appear mildly dehydrated and was given 1.5 L of fluids. CRP is negative. X-ray does show a small to moderate suprapatellar joint effusion. Given normal white blood cell count of 7, negative CRP, no fever, no warmth of the right knee, and symptoms over one week I do not have a high suspicion for a septic arthritis. I discussed Motrin and Tylenol for pain. I discussed wrapping the knee with a Harry wrap and following up with orthopedics which I did give her a referral for. Patient did initially have a blood pressure of 89/58 on presentation to the emergency department. She t took her metoprolol just prior to arrival. On repeat before discharge blood pressure is 96/61. Patient states this is normal for her. States her normal blood pressure is 92 systolic. 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 Patient does not feel lightheaded. At this time I recommend she follow up with her primary care provider for this as well. She will return with any worsening symptoms which were discussed thoroughly with her including redness or fever. - Lab Data Result diagrams: 02/28/20 11:15 02/28/20 11:15 Lab Results 02/28/20 02/28/20 Range/Units 11:15 11:15 WBC 7.0 (3.8-10.6) k/uL RBC 3.74 L (3.80-5.40) m/uL Hgb 12.5 (11.4-16.0) gm/dL Hct 38.3 (34.0-46.0) % MCV 102.5 H (80.0-100.0) fL MCH 33.5 (25.0-35.0) pg MCHC 32.7 (31.0-37.0) g/dL RDW 12.9 (11.5-15.5) % Plt Count 293 (150-450) k/uL Neutrophils % 34 % Lymphocytes % 56 % Monocytes % 4 % Eosinophils % 3 % Basophils % 1 % Neutrophils # 2.4 (1.3-7.7) k/uL Lymphocytes # 3.9 (1.0-4.8) k/uL Monocytes # 0.3 (0-1.0) k/uL Eosinophils # 0.2 (0-0.7) k/uL Basophils # 0.0 (0-0.2) k/uL Macrocytosis Slight Sodium 139 (137-145) mmol/L Potassium 4.2 (3.5-5.1) mmol/L Chloride 111 H (98-107) mmol/L Carbon Dioxide 20 L (22-30) mmol/L Anion Gap 8 mmol/L BUN 22 H (7-17) mg/dL Creatinine 1.20 H (0.52-1.04) mg/dL Est GFR (CKD-EPI)AfAm 57 (>60 ml/min/1.73 sqM) Est GFR (CKD-EPI)NonAf 50 (>60 ml/min/1.73 sqM) Glucose 97 (74-99) mg/dL Calcium 9.0 (8.4-10.2) mg/dL Total Bilirubin 0.2 (0.2-1.3) mg/dL AST 20 (14-36) U/L ALT 13 (4-34) U/L Alkaline Phosphatase 96 (38-126) U/L C-Reactive Protein <5.0 (<10.0) mg/L Total Protein 6.6 (6.3-8.2) g/dL Albumin 4.0 (3.5-5.0) g/dL Disposition Clinical Impression: Suprapatellar effusion of knee Disposition: HOME SELF-CARE Condition: Good Instructions (If sedation given, give patient instructions): Swollen Knee Joint (ED) Additional Instructions: Please use Harry wrap while awake. Follow-up with orthopedics in one to 2 days. If you have any worsening symptoms return to the emergency department. Be sure to return immediately if you start to have redness of the right knee, increased warmth of the right knee, or fevers. Is patient prescribed a controlled substance at d/c from ED?: No Referrals: Raad Best DO [Primary Care Provider] - 1-2 days Abrahan Arevalo MD [Medical Doctor] - 1-2 days Time of Disposition: 12:49
[2020-02-28 11:32] LABS: Basophils % (A) 1 %; Eosinophils # (A) 0.2 k/uL (0-0.7); Eosinophils % (A) 3 %; HCT 38.3 % (34.0-46.0); HGB 12.5 gm/dL (11.4-16.0); Lymphocytes # (A) 3.9 k/uL (1.0-4.8); Lymphocytes % (A) 56 %; MCH 33.5 pg (25.0-35.0); MCHC 32.7 g/dL (31.0-37.0); MCV 102.5 fL (80.0-100.0); Macrocytosis Slight; Mean Platelet Volume 7.3; Monocytes # (A) 0.3 k/uL (0-1.0); Monocytes % (A) 4 %; Neutrophils # (A) 2.4 k/uL (1.3-7.7); Neutrophils % (A) 34 %; Platelet Count 293 k/uL (150-450); RBC 3.74 m/uL (3.80-5.40); RDW 12.9 % (11.5-15.5)
[2020-02-28 11:46] LABS: ALT 13 U/L (4-34); AST 20 U/L (14-36); African American GFR (CKD) 57 (>60 ml/min/1.73 sqM); Alkaline Phosphatase 96 U/L (38-126); Anion Gap 8 mmol/L; Blood Urea Nitrogen 22 mg/dL (7-17); C Reactive Protein <5.0 mg/L (<10.0); Carbon Dioxide 20 mmol/L (22-30); Chloride 111 mmol/L (98-107); Glucose 97 mg/dL (74-99); Non-African American GFR(CKD) 50 (>60 ml/min/1.73 sqM); Potassium 4.2 mmol/L (3.5-5.1); Sodium 139 mmol/L (137-145); Total Bilirubin 0.2 mg/dL (0.2-1.3); Total Protein 6.6 g/dL (6.3-8.2)
--- NOTE | 2020-02-28 11:52 | XR ---
EXAMINATION TYPE: XR knee complete RT DATE OF EXAM: 02/28/2020 COMPARISON: NONE HISTORY: Sharp right knee pain and swelling TECHNIQUE: 3 views the right knee were obtained FINDINGS: There is no acute fracture/dislocation evident in right knee. The tri-compartment joint s paces appear aligned. Small superior patellar pole osteophyte is seen. There is a suprapatellar joint effusion that is mild to moderate.. Mild atherosclerosis. IMPRESSION: [id number] suprapatellar joint effusion with no acute fracture or dislocation in t he right knee.
--- NOTE | 2020-02-28 12:10 | US ---
EXAMINATION TYPE: US venous doppler duplex LE RT DATE OF EXAM: 02/28/2020 11:57 AM COMPARISON: NONE CLINICAL HISTORY: pain. Right knee pain and edema for 1 week, no injury SIDE PERFORMED: right TECHNIQUE: The lower extremity deep venous system is examined utilizing real time linear array sonog guy with graded compression, doppler sonography and color-flow sonography. VESSELS IMAGED: External Iliac Vein (EIV) Common Femoral Vein Deep Femoral Vein Greater Saphenous Vein * Femoral Vein Popliteal Vein Small Saphenous Vein * Proximal Calf Veins (* superficial vessels) Grayscale, color doppler, spectral doppler imaging performed of the deep veins of the right lower ext remity. There is normal flow, compressibility, vascular waveforms. Right Leg: No evidence of DVT IMPRESSION: No sonographic evidence of deep venous thrombosis within the right lower extremity.
[2020-02-28 13:24] VITALS: BP 98/64
== END 2020-02-28 13:30 | disposition home or self-care (01) ==
LOC: EC 10:22
DX: M25.461 Effusion, right knee (principal); I25.10 Atherosclerotic heart disease of native coronary artery without angina pectoris; K21.9 Gastro-esophageal reflux disease without esophagitis; I10 Essential (primary) hypertension; I25.2 Old myocardial infarction; F41.9 Anxiety disorder, unspecified; F32.9 Major depressive disorder, single episode, unspecified; Z85.41 Personal history of malignant neoplasm of cervix uteri; Z86.73 Personal history of transient ischemic attack (TIA), and cerebral infarction without residual deficits; Z95.5 Presence of coronary angioplasty implant and graft; Z87.891 Personal history of nicotine dependence; Z79.82 Long term (current) use of aspirin; Z79.1 Long term (current) use of non-steroidal anti-inflammatories (NSAID); Z79.891 Long term (current) use of opiate analgesic; Z79.899 Other long term (current) drug therapy; Z91.048 Other nonmedicinal substance allergy status; Z88.5 Allergy status to narcotic agent; Z88.0 Allergy status to penicillin
CPT/HCPCS: 36415; 80053; 85025; 86140; 93005; 96360; 99284

== ENCOUNTER → 2020-08-09 | Outpatient (CLI) | payer BC, OTHER | END | disposition home or self-care (01) | LOC: LABWHC1 12:44 | PROVIDERS: ATTEND Nurse Practitioner Family | DX: Z01.818 Encounter for other preprocedural examination (principal) | CPT/HCPCS: 36415; 85730 ==

== ENCOUNTER 2021-04-02 18:49 | Inpatient (IN) | payer BC, OTHER ==
[2021-04-02] MEDS ORDERED: SODIUM CHLORIDE 0.9% 1,000 ML IV STA (19:25)
[2021-04-02] MEDS ORDERED: ONDANSETRON 4 MG/2 ML VIAL IVP STA (19:26)
[2021-04-02 19:56] LABS: HCT 39.3 % (34.0-46.0); HGB 13.4 gm/dL (11.4-16.0); MCH 33.6 pg (25.0-35.0); MCV 98.8 fL (80.0-100.0); Mean Platelet Volume 7.9; Platelet Count 160 k/uL (150-450); RBC 3.98 m/uL (3.80-5.40); RDW 13.3 % (11.5-15.5); WBC 20.9 k/uL (3.8-10.6)
[2021-04-02] MEDS ORDERED: METOCLOPRAMIDE 5 MG/ML 2 ML VIAL IVP STA (19:58)
[2021-04-02] MEDS ORDERED: SODIUM CHLORIDE 0.9% 500 ML 500 ML IV ONE ×3 (19:58→22:06)
[2021-04-02] MEDS ORDERED: KETOROLAC 15 MG/ML 1 ML VIAL IVP STA (19:58)
[2021-04-02] MEDS ORDERED: HYDROmorphone 0.5 MG/0.5 ML SYRINGE IVP STA (19:58)
[2021-04-02 20:02] LABS: Partial Thromboplastin Time 26.2 sec (22.0-30.0); Prothrombin Time 10.5 sec (9.0-12.0)
[2021-04-02 20:05] LABS: Albumin 3.6 g/dL (3.5-5.0); Calcium 9.3 mg/dL (8.4-10.2); Magnesium 1.4 mg/dL (1.6-2.3); Potassium 3.5 mmol/L (3.5-5.1); Total Bilirubin 0.4 mg/dL (0.2-1.3)
[2021-04-02] MEDS ORDERED: ACETAMINOPHEN TAB 325 MG TAB PO STA ×2 (20:13→21:05)
--- NOTE | 2021-04-02 20:14 | ED ---
Abdominal Pain HPI <Denzel Lopez Liz - Last Filed: 04/02/21 22:49> - General Source: patient, family, RN notes reviewed Mode of arrival: ambulatory Limitations: no limitations <Ramon Milan - Last Filed: 04/02/21 22:57> - General Chief Complaint: Abdominal Pain Stated Complaint: N&V/Weak Time Seen by Provider: 04/02/21 19:22 - History of Present Illness Initial Comments: 60-year-old female presents emergency Department chief complaints of not feeling well. Patient states she started with right flank pain this morning. Patient states symptoms progress. She's been having nausea and vomiting throughout the day. States she feels weak, short of breath. Patient has a known smoker. Denies any chest pain, headache or dizziness. She states that she's had prior cholecystectomy no prior appendectomy. No history kidney stones. No dysuria. Patient denies any known fevers or chills no other complaints. (Ramon Milan) - Related Data Home Medications Medication Instructions Recorded Confirmed Aspirin 81 mg PO DAILY 08/22/14 04/02/21 Cyclobenzaprine [Flexeril] 10 mg PO TID 08/22/14 04/02/21 Gabapentin 800 mg PO TID 08/22/14 04/02/21 Ibuprofen [Motrin] 800 mg PO TID PRN 08/22/14 04/02/21 HYDROcodone/APAP 10-325MG [[place] 1 tab PO TID PRN 09/15/17 04/02/21 10-325] ALPRAZolam [Xanax] 0.25 mg PO BID 04/02/21 04/02/21 Acetaminophen [Tylenol Extra 1,000 mg PO Q6H PRN 04/02/21 04/02/21 Strength] Atorvastatin [Lipitor] 20 mg PO HS 04/02/21 04/02/21 Cholecalciferol [Vitamin D3 (25 25 mcg PO DAILY 04/02/21 04/02/21 Mcg = 1000 Iu)] Citalopram Hydrobromide [CeleXA] 40 mg PO DAILY 04/02/21 04/02/21 Metoprolol Succinate (ER) [Toprol 12.5 mg PO DAILY 04/02/21 04/02/21 Xl] Allergies Allergy/AdvReac Type Severity Reaction Status Date / Time adhesive Allergy BLISTERS Verified 04/02/21 22:38 codeine Allergy Unknown Verified 04/02/21 22:38 Iodine and Iodide Containing Allergy Unknown Verified 04/02/21 22:38 Produc morphine Allergy Swelling Verified 04/02/21 22:38 Penicillins Allergy Swelling Verified 04/02/21 22:38 Review of Systems ROS Other: All systems not noted in ROS Statement are negative. <MarikaDenzel monahan - Last Filed: 04/02/21 22:49> ROS Other: All systems not noted in ROS Statement are negative. <Ramon Milan - Last Filed: 04/02/21 22:57> ROS Statement: Those systems with pertinent positive or pertinent negative responses have been documented in the HPI. Past Medical History Past Medical History: Coronary Artery Disease (CAD), Cancer, CVA/TIA, GERD/Reflu x, Hypertension, Myocardial Infarction ([place]) Additional Past Medical History / Comment(s): hx cervical cancer, hypoglycemia, lower back and pelvic pain Last Myocardial Infarction Date:: 07/19/2011 History of Any Multi-Drug Resistant Organisms: None Reported Past Surgical History: Back Surgery, Cholecystectomy, Heart Catheterization With Stent, Hysterectomy, Orthopedic Surgery, Tubal Ligation Additional Past Surgical History / Comment(s): RIGHT WRIST, LAPAROSCOPIC SURGERY, heart stent x2 Past Anesthesia/Blood Transfusion Reactions: No Reported Reaction Date of Last Stent Placement:: 07/19/2011 Past Psychological History: Anxiety, Depression Smoking Status: Current every day smoker Past Alcohol Use History: None Reported Past Drug Use History: None Reported - Past Family History Mother Family Medical History: Cancer Additional Family Medical History / Comment(s): tongue <Ramon Milan - Last Filed: 04/02/21 22:57> General Exam Limitations: no limitations General appearance: alert, in no apparent distress Head exam: Present: atraumatic, normocephalic, normal inspection Eye exam: Present: normal appearance, PERRL, EOMI. Absent: scleral icterus, conjunctival injection, periorbital swelling ENT exam: Present: normal exam, normal oropharynx, mucous membranes moist Neck exam: Present: normal inspection, full ROM. Absent: tenderness, meningi smus, lymphadenopathy Respiratory exam: Present: normal lung sounds bilaterally. Absent: respiratory distress, wheezes, rales, rhonchi, stridor Cardiovascular Exam: Present: normal rhythm, tachycardia, normal heart sounds. Absent: systolic murmur, diastolic murmur, rubs, gallop, clicks GI/Abdominal exam: Present: soft, tenderness (Moderate right-sided), normal bowel sounds. Absent: distended, guarding, rebound, rigid Back exam: Present: CVA tenderness (R). Absent: CVA tenderness (L) Neurological exam: Present: alert Skin exam: Present: warm, dry, intact, normal color. Absent: rash <Ramon Milan - Last Filed: 04/02/21 22:57> Course <Denzel Lopez - Last Filed: 04/02/21 22:49> Vital Signs 04/02/21 04/02/21 04/02/21 19:16 20:24 21:04 Temperature 99.3 F 100.3 F H Pulse Rate 120 H 117 H 112 H Respiratory 24 22 20 Rate Blood Pressure 187/110 76/43 68/47 O2 Sat by Pulse 88 L 92 L 93 L Oximetry 04/02/21 22:00 Temperature Pulse Rate 110 H Respiratory 18 Rate Blood Pressure 73/51 O2 Sat by Pulse 95 Oximetry - Reevaluation(s) Reevaluation #1: 04/02/21 22:49 Patient presented with right flank pain radiating to the groin. Patient is febrile tachycardic, initial blood pressure stable over on repeat she does have the several blood pressures which is hypotensive. CT performed which shows a right-sided hydronephrosis hydroureter and perinephric edema. No obstructing stone is present. Discussed case both with urology and with the admitting physician and the pattern generator operator. Patient will be admitted to the ICU for close monitoring. She'll be continued on IV antibiotics and IV fluids. (Denzel Lopez) Procedures - Sepsis Sepsis Focused Exam #1 Time Sepsis Criteria Met: 22:15 Sepsis Focused Exam Date: 04/02/21 Sepsis Focused Exam Time: 22:24 Sepsis Focused Exam Complete: Yes Vital Signs & RN Notes Reviewed: Yes Capillary Refill: < 2 Seconds: Fingers, Toes Peripheral Pulses: Normal: Posterior Tibialis (R), Posterior Tibialis (L), Dorsalis Pedis (R), Dorsalis Pedis (L), Strong: Radial (R), Radial (L) Skin Color: Normal for Patient Respiratory Exam: normal lung sounds Cardiovascular Exam: normal rhythm, tachycardia <Ramon Milan - Last Filed: 04/02/21 22:57> Medical Decision Making - Lab Data Result diagrams: 04/02/21 19:42 04/02/21 19:42 <Denzel Lopez - Last Filed: 04/02/21 22:49> - Lab Data Result diagrams: 04/02/21 19:42 04/02/21 19:42 <Ramon Milan - Last Filed: 04/02/21 22:57> - Medical Decision Making 60-year-old female presented for right flank pain no to be febrile, tachycardic. Patient found to have arterial, flank or proximal to the right kidney may be due to recently passed stone versus obstructive process, pyelonephritis. Patient has leukocytosis, lactic acid blood pressure has been slightly hypotensive. Patient was given 2 half liters of fluid, maintenance fluids at 130 ml per hour case was discussed with Dr. Baumann with urology who was okay with 2 g Rocephin for antibiotics, case discussed with Dr. Khan for ICU and Dr. Best. Patient we continued IV fluids, close monitoring. (Ramon Milan) - Lab Data Lab Results 04/02/21 04/02/21 04/02/21 Range/Units 19:42 19:42 19:42 WBC 20.9 H (3.8-10.6) k/uL RBC 3.98 (3.80-5.40) m/uL Hgb 13.4 (11.4-16.0) gm/dL Hct 39.3 (34.0-46.0) % MCV 98.8 (80.0-100.0) fL MCH 33.6 (25.0-35.0) pg MCHC 34.0 (31.0-37.0) g/dL RDW 13.3 (11.5-15.5) % Plt Count 160 (150-450) k/uL MPV 7.9 Neutrophils % (Manual) 73 % Band Neuts % (Manual) 7 % Lymphocytes % (Manual) 9 % Monocytes % (Manual) 9 % Metamyelocytes % 2 % Neutrophils # (Manual) 16.70 H (1.3-7.7) k/uL Lymphocytes # (Manual) 1.88 (1.0-4.8) k/uL Monocytes # (Manual) 1.88 H (0-1.0) k/uL Metamyelocytes # (Man) 0.42 H (0) k/uL Nucleated RBCs 0 (0-0) /100 WBC Manual Slide Review Performed PT 10.5 (9.0-12.0) sec INR 1.0 (<1.2) APTT 26.2 (22.0-30.0) sec Sodium 135 L (137-145) mmol/L Potassium 3.5 (3.5-5.1) mmol/L Chloride 107 (98-107) mmol/L Carbon Dioxide 18 L (22-30) mmol/L Anion Gap 10 mmol/L BUN 27 H (7-17) mg/dL Creatinine 2.25 H (0.52-1.04) mg/dL Est GFR (CKD-EPI)AfAm 27 (>60 ml/min/1.73 sqM) Est GFR (CKD-EPI)NonAf 23 (>60 ml/min/1.73 sqM) Glucose 109 H (74-99) mg/dL Lactic Ac Sepsis Rflx Plasma Lactic Acid Shadi (0.7-2.0) mmol/L Calcium 9.3 (8.4-10.2) mg/dL Magnesium 1.4 L (1.6-2.3) mg/dL Total Bilirubin 0.4 (0.2-1.3) mg/dL AST 115 H (14-36) U/L ALT 75 H (4-34) U/L Alkaline Phosphatase 140 H (38-126) U/L Troponin I (0.000-0.034) ng/mL NT-Pro-B Natriuret Pep pg/mL Total Protein 6.0 L (6.3-8.2) g/dL Albumin 3.6 (3.5-5.0) g/dL Lipase 98 (23-300) U/L Urine Color Urine Appearance (Clear) Urine pH (5.0-8.0) Ur Specific [place] (1.001-1.035) Urine Protein (Negative) Urine Glucose (UA) (Negative) Urine Ketones (Negative) Urine Blood (Negative) Urine Nitrite (Negative) Urine Bilirubin (Negative) Urine Urobilinogen (<2.0) mg/dL Ur Leukocyte Esterase (Negative) Urine RBC (0-5) /hpf Urine WBC (0-5) /hpf Urine WBC Clumps (None) /hpf Ur Squamous Epith Cells (0-4) /hpf Urine Mucus (None) /hpf Coronavirus (PCR) (Not Detectd) 04/02/21 04/02/21 04/02/21 Range/Units 19:42 19:42 19:42 WBC (3.8-10.6) k/uL RBC (3.80-5.40) m/uL Hgb (11.4-16.0) gm/dL Hct (34.0-46.0) % MCV (80.0-100.0) fL MCH (25.0-35.0) pg MCHC (31.0-37.0) g/dL RDW (11.5-15.5) % Plt Count (150-450) k/uL MPV Neutrophils % (Manual) % Band Neuts % (Manual) % Lymphocytes % (Manual) % Monocytes % (Manual) % Metamyelocytes % % Neutrophils # (Manual) (1.3-7.7) k/uL Lymphocytes # (Manual) (1.0-4.8) k/uL Monocytes # (Manual) (0-1.0) k/uL Metamyelocytes # (Man) (0) k/uL Nucleated RBCs (0-0) /100 WBC Manual Slide Review PT (9.0-12.0) sec INR (<1.2) APTT (22.0-30.0) sec Sodium (137-145) mmol/L Potassium (3.5-5.1) mmol/L Chloride (98-107) mmol/L Carbon Dioxide (22-30) mmol/L Anion Gap mmol/L BUN (7-17) mg/dL Creatinine (0.52-1.04) mg/dL Est GFR (CKD-EPI)AfAm (>60 ml/min/1.73 sqM) Est GFR (CKD-EPI)NonAf (>60 ml/min/1.73 sqM) Glucose (74-99) mg/dL Lactic Ac Sepsis Rflx Plasma Lactic Acid Shadi 3.8 H* (0.7-2.0) mmol/L Calcium (8.4-10.2) mg/dL Magnesium (1.6-2.3) mg/dL Total Bilirubin (0.2-1.3) mg/dL AST (14-36) U/L ALT (4-34) U/L Alkaline Phosphatase (38-126) U/L Troponin I 0.023 (0.000-0.034) ng/mL NT-Pro-B Natriuret Pep 3760 pg/mL Total Protein (6.3-8.2) g/dL Albumin (3.5-5.0) g/dL Lipase (23-300) U/L Urine Color Urine Appearance (Clear) Urine pH (5.0-8.0) Ur Specific [place] (1.001-1.035) Urine Protein (Negative) Urine Glucose (UA) (Negative) Urine Ketones (Negative) Urine Blood (Negative) Urine Nitrite (Negative) Urine Bilirubin (Negative) Urine Urobilinogen (<2.0) mg/dL Ur Leukocyte Esterase (Negative) Urine RBC (0-5) /hpf Urine WBC (0-5) /hpf Urine WBC Clumps (None) /hpf Ur Squamous Epith Cells (0-4) /hpf Urine Mucus (None) /hpf Coronavirus (PCR) (Not Detectd) 04/02/21 04/02/21 04/02/21 Range/Units 20:20 20:50 21:49 WBC (3.8-10.6) k/uL RBC (3.80-5.40) m/uL Hgb (11.4-16.0) gm/dL Hct (34.0-46.0) % MCV (80.0-100.0) fL MCH (25.0-35.0) pg MCHC (31.0-37.0) g/dL RDW (11.5-15.5) % Plt Count (150-450) k/uL MPV Neutrophils % (Manual) % Band Neuts % (Manual) % Lymphocytes % (Manual) % Monocytes % (Manual) % Metamyelocytes % % Neutrophils # (Manual) (1.3-7.7) k/uL Lymphocytes # (Manual) (1.0-4.8) k/uL Monocytes # (Manual) (0-1.0) k/uL Metamyelocytes # (Man) (0) k/uL Nucleated RBCs (0-0) /100 WBC Manual Slide Review PT (9.0-12.0) sec INR (<1.2) APTT (22.0-30.0) sec Sodium (137-145) mmol/L Potassium (3.5-5.1) mmol/L Chloride (98-107) mmol/L Carbon Dioxide (22-30) mmol/L Anion Gap mmol/L BUN (7-17) mg/dL Creatinine (0.52-1.04) mg/dL Est GFR (CKD-EPI)AfAm (>60 ml/min/1.73 sqM) Est GFR (CKD-EPI)NonAf (>60 ml/min/1.73 sqM) Glucose (74-99) mg/dL Lactic Ac Sepsis Rflx Y Plasma Lactic Acid Shadi (0.7-2.0) mmol/L Calcium (8.4-10.2) mg/dL Magnesium (1.6-2.3) mg/dL Total Bilirubin (0.2-1.3) mg/dL AST (14-36) U/L ALT (4-34) U/L Alkaline Phosphatase (38-126) U/L Troponin I (0.000-0.034) ng/mL NT-Pro-B Natriuret Pep pg/mL Total Protein (6.3-8.2) g/dL Albumin (3.5-5.0) g/dL Lipase (23-300) U/L Urine Color Light Red Urine Appearance Turbid H (Clear) Urine pH 6.0 (5.0-8.0) Ur Specific [place] 1.023 (1.001-1.035) Urine Protein 3+ H (Negative) Urine Glucose (UA) Negative (Negative) Urine Ketones Negative (Negative) Urine Blood Large H (Negative) Urine Nitrite Negative (Negative) Urine Bilirubin Negative (Negative) Urine Urobilinogen 2.0 (<2.0) mg/dL Ur Leukocyte Esterase Large H (Negative) Urine RBC >182 H (0-5) /hpf Urine WBC >182 H (0-5) /hpf Urine WBC Clumps Many H (None) /hpf Ur Squamous Epith Cells 2 (0-4) /hpf Urine Mucus Rare H (None) /hpf Coronavirus (PCR) Not Detected (Not Detectd) Critical Care Time Critical Care Time: Yes Total Critical Care Time: 35 <Ramon Milan - Last Filed: 04/02/21 22:57> Disposition Is patient prescribed a controlled substance at d/c from ED?: No Decision to Admit Reason: Admit from EC <Denzel Lopez - Last Filed: 04/02/21 22:49> <Ramon Milan - Last Filed: 04/02/21 22:57> Clinical Impression: Pyelonephritis, Nausea & vomiting, Acute kidney injury, Sepsis Disposition: ADMITTED IP TO THIS HOSP Condition: Serious
--- NOTE | 2021-04-02 20:29 | XR ---
EXAMINATION TYPE: XR chest 2V DATE OF EXAM: 04/02/2021 COMPARISON: 02/14/2020 HISTORY: Pain TECHNIQUE: 2 views FINDINGS: There is some mild increased interstitial density at the lung bases. Heart size is normal. Heart is deviated slightly to the right side. There are no hilar masses. Mediastinum is normal. IMPRESSION: There are new mild interstitial infiltrates and subsegmental atelectasis at the lung base s compared to old exam. No heart failure.
[2021-04-02 20:39] LABS: Band Neutrophils % 7 %; Lymphocytes # (M) 1.88 k/uL (1.0-4.8); Metamyelocytes # (M) 0.42 k/uL (0); Metamyelocytes % 2 %; Monocytes # (M) 1.88 k/uL (0-1.0); Neutrophils % (M) 73 %; Nucleated Red Blood Cells 0 /100 WBC (0-0); Total Cells Counted 100
--- NOTE | 2021-04-02 20:53 | CT ---
EXAMINATION TYPE: CT abdomen pelvis wo con DATE OF EXAM: 04/02/2021 COMPARISON: 12/05/2014 HISTORY: RT flank pain N/V dizziness CT DLP: 440.9 mGycm Automated exposure control for dose reduction was used. Images obtained from the diaphragm to the floor the pelvis with no contrast. There is some coarse reticular infiltrate at the lung bases. Heart size is normal. There is no perica rdial effusion. There is no pleural effusion. There are clips from cholecystectomy. The common bile d uct is large and measures up to 13 mm. Intrahepatic bile ducts are not dilated. There is no focal radha er defect. Spleen is intact. Stomach is intact. There is no pancreatic mass. There is no adrenal mass. Kidneys have normal size. There is mild stranding around the right kidney. There is right side mild hydronephrosis. There is mild right-sided hydroureter. I see no definite ure teral calculus. Bladder is almost empty. There is some fluid in the right side perirenal space. The appendix appears normal. There is no ascites. There is no free air. There is no evidence of bowel obstruction. The lumbar vertebra have normal alignment. Disc spaces are fairly normal. Posterior elements are inta ct. There is no compression fracture. The bony pelvis is intact. The hip joints are intact. IMPRESSION: There are interstitial infiltrates and emphysematous changes at the lung bases bilaterally similar to old exam. No suspicious pulmonary mass. This is likely inflammatory. Right side hydronephrosis and hydroureter with perinephric edema that could relate to nonopaque obstr ucting stone or recently passed stone. This is a change compared to old exam. Normal appendix.
[2021-04-02 21:09] LABS: Appearance,Urine Turbid (Clear); Bilirubin,Urine Negative (Negative); Blood,Urine Large (Negative); Color,Urine Light Red; Glucose,Urine (UA) Negative (Negative); Ketones,Urine Negative (Negative); Leukocyte Esterase,Urine Large (Negative); Mucus,Urine Rare /hpf; Nitrite,Urine Negative (Negative); Protein,Urine 3+ (Negative); RBC,Urine >182 /hpf (0-5); Specific Gravity,Urine 1.023 (1.001-1.035); Squamous Epithelial Cell,Urine 2 /hpf (0-4); WBC,Urine >182 /hpf (0-5)
[2021-04-02] MEDS: SODIUM CHLORIDE 0.9% 1,000 ML IV SCH (21:57)
[2021-04-02] MEDS ORDERED: NALOXONE 0.4 MG/ML 1 ML VIAL IV PRN (22:39)
[2021-04-03 05:18] LABS: Glucose,Whole Blood 101 mg/dL (75-99)
[2021-04-03] MEDS: SODIUM CHLORIDE 0.9% 1,000 ML IV SCH ×3 (05:38→16:05)
--- NOTE | 2021-04-03 06:04 | P.CNPUL ---
History of Present Illness Consult date: 04/03/21 Requesting physician: Raad Best Reason for consult: other Chief complaint: Urinary tract infection, sepsis. History of present illness: Pulmonary consult dated 04/03/2021. This is a 68-year-old female, who presents to the emergency department, not feeling well. She apparently started off with right flank pain the morning of admission to the emergency department. Symptoms apparently progress. She was also having nausea and vomiting. She was feeling very weak. She apparently also was complaining of shortness of breath. No chest pain headache or dizziness. The patient denied any dysuria, hematuria, or foul-smelling urine. She had no fever or chills or other complaints. I was called by the ER physician who wanted to admit the patient to the intensive care unit for urinary tract infection/urosepsis, with hydronephrosis. Urology was notified. She apparently has a history of CAD, CVA, GERD, hypertension, myocardial infarction, cervical cancer, and low back pain. White count was 20.9, hemoglobin 13.4, hematocrit 39.3, platelet count 160,000. Sodium 135, potassium 3.5, chlorides 107, CO2 18, anion gap 10, BUN 27, creatinine 2.25. Lactic acid was initially 2.1 and then increased to 3.0. AST 115 ALT 75. Coronavirus testing was negative. Urine was turbid, with 3+ protein, large amount of blood, large positive leukocyte esterase, greater than 182 RBCs and WBCs, many white blood cell clumps. Chest x-ray revealed some interstitial infiltrates and atelectasis at the lung bases. A CT of the abdomen and pelvis revealed some interstitial infiltrates and emphysematous changes at the lung bases bilaterally, without any suspicious pulmonary masses. There is right-sided hydronephrosis and hydroureter with perinephric edema. No stone noted. Review of Systems REVIEW OF SYSTEMS: CONSTITUTIONAL: Weakness. NEUROLOGIC: [ Negative.] HEENT: [ Negative.] CARDIAC: [Negative.] PULMONARY: Mild shortness of breath. GI: Nausea and vomiting. : Right flank pain. RHEUMATOLOGIC: [ Negative.] IMMUNOLOGIC: [ Negative.] ENDOCRINE: [Negative. ] DERMATOLOGIC: [Negative.] Past Medical History Past Medical History: Coronary Artery Disease (CAD), Cancer, CVA/TIA, GERD/Reflux, Hypertension, Myocardial Infarction ([place]) Additional Past Medical History / Comment(s): hx cervical cancer, hypoglycemia, lower back and pelvic pain Last Myocardial Infarction Date:: 07/19/2011 History of Any Multi-Drug Resistant Organisms: None Reported Past Surgical History: Back Surgery, Cholecystectomy, Heart Catheterization With Stent, Hysterectomy, Orthopedic Surgery, Tubal Ligation Additional Past Surgical History / Comment(s): RIGHT WRIST, LAPAROSCOPIC SURGERY, heart stent x2 Past Anesthesia/Blood Transfusion Reactions: No Reported Reaction Date of Last Stent Placement:: 07/19/2011 Smoking Status: Current every day smoker - Past Family History Mother Family Medical History: Cancer Additional Family Medical History / Comment(s): tongue Medications and Allergies Home Medications Medication Instructions Recorded Confirmed Type Aspirin 81 mg PO DAILY 08/22/14 04/02/21 History Cyclobenzaprine [Flexeril] 10 mg PO TID 08/22/14 04/02/21 History Gabapentin 800 mg PO TID 08/22/14 04/02/21 History Ibuprofen [Motrin] 800 mg PO TID PRN 08/22/14 04/02/21 History HYDROcodone/APAP 10-325MG [[place] 1 tab PO TID PRN 09/15/17 04/02/21 History 10-325] ALPRAZolam [Xanax] 0.25 mg PO BID 04/02/21 04/02/21 History Acetaminophen [Tylenol Extra 1,000 mg PO Q6H PRN 04/02/21 04/02/21 History Strength] Atorvastatin [Lipitor] 20 mg PO HS 04/02/21 04/02/21 History Cholecalciferol [Vitamin D3 (25 25 mcg PO DAILY 04/02/21 04/02/21 History Mcg = 1000 Iu)] Citalopram Hydrobromide [CeleXA] 40 mg PO DAILY 04/02/21 04/02/21 History Metoprolol Succinate (ER) [Toprol 12.5 mg PO DAILY 04/02/21 04/02/21 History Xl] Allergies Allergy/AdvReac Type Severity Reaction Status Date / Time adhesive Allergy BLISTERS Verified 04/02/21 22:38 codeine Allergy Unknown Verified 04/02/21 22:38 Iodine and Iodide Containing Allergy Unknown Verified 04/02/21 22:38 Produc morphine Allergy Swelling Verified 04/02/21 22:38 Penicillins Allergy Swelling Verified 04/02/21 22:38 Physical Exam Osteopathic Statement: *. No significant issues noted on an osteopathic structural exam other than those noted in the History and Physical/Consult. Vitals: Vital Signs Temp Pulse Resp BP Pulse Ox 04/03/21 04:00 107 H 19 86/58 95 04/03/21 03:00 118 H 18 80/51 95 04/03/21 02:29 114 H 28 H 104/58 96 04/03/21 01:00 112 H 16 73/50 96 04/03/21 00:00 110 H 18 73/50 96 04/02/21 23:40 112 H 79/41 04/02/21 23:31 98.9 F 112 H 20 69/46 96 04/02/21 22:00 110 H 18 73/51 95 04/02/21 21:04 100.3 F H 112 H 20 68/47 93 L 04/02/21 20:24 117 H 22 76/43 92 L 04/02/21 19:16 99.3 F 120 H 24 187/110 88 L Intake and Output 04/02/21 04/02/21 04/03/21 14:59 22:59 06:59 Other: Weight 65.771 kg 65.771 kg No acute distress, oriented 3. Currently on 5 L nasal cannula. No respiratory distress, use of accessory muscles, or conversational dyspnea. HEENT examination is grossly unremarkable. Neck supple. Full range of motion. No adenopathy thyromegaly or neck vein distention. Cardiovascular examination reveals regular rhythm rate. S1-S2 normal. No S3 or S4. No discernible murmur noted. Heart rate 107. Lungs reveal mild scattered rhonchi. No wheezes or crackles. Breath sounds equal bilaterally. Saturation 95% on 5 L. Abdomen soft bowel sounds are heard. No masses or tenderness. Extremities are intact. No cyanosis clubbing or edema. Skin is without rash or lesion. Neurologic examination is brief but nonfocal. Results - Laboratory Findings CBC and BMP: 04/02/21 19:42 04/02/21 19:42 PT/INR, D-dimer PT 10.5 sec (9.0-12.0) 04/02/21 19:42 INR 1.0 (<1.2) 04/02/21 19:42 Abnormal lab findings: Abnormal Labs 04/02/21 04/02/21 04/02/21 19:42 19:42 19:42 WBC 20.9 H Neutrophils # (Manual) 16.70 H Monocytes # (Manual) 1.88 H Metamyelocytes # (Man) 0.42 H Sodium 135 L Carbon Dioxide 18 L BUN 27 H Creatinine 2.25 H Glucose 109 H POC Glucose (mg/dL) Plasma Lactic Acid Shadi 3.8 H* Magnesium 1.4 L AST 115 H ALT 75 H Alkaline Phosphatase 140 H Total Protein 6.0 L Urine Appearance Urine Protein Urine Blood Ur Leukocyte Esterase Urine RBC Urine WBC Urine WBC Clumps Urine Mucus 04/02/21 04/02/21 04/03/21 20:50 23:05 02:25 WBC Neutrophils # (Manual) Monocytes # (Manual) Metamyelocytes # (Man) Sodium Carbon Dioxide BUN Creatinine Glucose POC Glucose (mg/dL) Plasma Lactic Acid Shadi 2.1 H* 3.0 H* Magnesium AST ALT Alkaline Phosphatase Total Protein Urine Appearance Turbid H Urine Protein 3+ H Urine Blood Large H Ur Leukocyte Esterase Large H Urine RBC >182 H Urine WBC >182 H Urine WBC Clumps Many H Urine Mucus Rare H 04/03/21 05:17 WBC Neutrophils # (Manual) Monocytes # (Manual) Metamyelocytes # (Man) Sodium Carbon Dioxide BUN Creatinine Glucose POC Glucose (mg/dL) 101 H Plasma Lactic Acid Shadi Magnesium AST ALT Alkaline Phosphatase Total Protein Urine Appearance Urine Protein Urine Blood Ur Leukocyte Esterase Urine RBC Urine WBC Urine WBC Clumps Urine Mucus - Diagnostic Findings Chest x-ray: image reviewed Assessment and Plan Assessment: Acute pyelonephritis with urosepsis/septic shock and evidence of hydronephrosis and hydroureter without obvious stone. Bibasilar atelectasis, doubt pneumonia. History of CAD, status post stent placement. History of CVA. History of gastroesophageal reflux disease. History of hypertension. History of myocardial infarction. History of cervical cancer. History of ongoing tobacco use with nicotine addiction. Plan: Plan dated 04/03/2021. Currently, the patient's on 5 L nasal cannula, is receiving saline at 130 mL an hour. She is also receiving ceftriaxone. No pressor at this time. I will add some updrafts. She is a chronic tobacco user. Changes of the lung bases likely reflect atelectasis rather than pneumonia. We will continue to follow. Prognosis is guarded. Urology has been notified. Time with Patient: Greater than 30
[2021-04-03 06:10] LABS: Albumin 2.7 g/dL (3.5-5.0); Calcium 7.6 mg/dL (8.4-10.2); HCT 35.4 % (34.0-46.0); HGB 11.4 gm/dL (11.4-16.0); MCH 32.5 pg (25.0-35.0); MCHC 32.1 g/dL (31.0-37.0); MCV 101.2 fL (80.0-100.0); Macrocytosis Slight; Mean Platelet Volume 7.4; Platelet Count 117 k/uL (150-450); Potassium 4.4 mmol/L (3.5-5.1); RBC 3.49 m/uL (3.80-5.40); Total Bilirubin 0.2 mg/dL (0.2-1.3); Total Protein 4.9 g/dL (6.3-8.2); WBC 17.1 k/uL (3.8-10.6)
[2021-04-03 06:41] LABS: Band Neutrophils % 20 %; Lymphocytes # (M) 1.54 k/uL (1.0-4.8); Metamyelocytes # (M) 0.86 k/uL (0); Metamyelocytes % 5 %; Monocytes # (M) 0.51 k/uL (0-1.0); Myelocytes # (M) 0.34 k/uL (0); Myelocytes % 2 %; Neutrophils % (M) 64 %; Nucleated Red Blood Cells 0 /100 WBC (0-0); Total Cells Counted 200
[2021-04-03 06:43] LABS: Toxic Vacuolation Present
[2021-04-03] MEDS: IPRATROPIUM-ALBUTEROL 3 ML NEB INHALATION SCH ×3 (07:51→20:41)
--- NOTE | 2021-04-03 08:11 | P.GSCN ---
History of Present Illness Consult date: 04/03/21 Reason for Consult: Right hydronephrosis Requesting physician: Raad Best History of present illness: The patient is a 60-year-old white female who yesterday experienced acute onset of right-sided abdominal and flank pain, associated with nausea and vomiting. She denies fever and chills. She denies any prior history of urolithiasis. She has been treated for UTIs in the past, though infrequently and not in over 6 months. When evaluated in the emergency room, there was evidence of right hydroureteronephrosis with no visible calculus. There was also evidence of right perinephric stranding. Urinalysis was consistent with infection. She was noted to be hypotensive. Review of Systems - Constitutional Reports weakness, Denies chills, Denies fever - Gastrointestinal Reports nausea, Reports vomiting - Genitourinary Genitourinary: Reports flank pain, Denies dysuria, Denies hematuria Past Medical History Past Medical History: Coronary Artery Disease (CAD), Cancer, CVA/TIA, GERD/Reflux, Hypertension, Myocardial Infarction ([place]) Additional Past Medical History / Comment(s): hx cervical cancer, hypoglycemia, lower back and pelvic pain Last Myocardial Infarction Date:: 07/19/2011 History of Any Multi-Drug Resistant Organisms: None Reported Past Surgical History: Back Surgery, Cholecystectomy, Heart Catheterization With Stent, Hysterectomy, Orthopedic Surgery, Tubal Ligation Additional Past Surgical History / Comment(s): RIGHT WRIST, LAPAROSCOPIC SURGERY, heart stent x2 Past Anesthesia/Blood Transfusion Reactions: No Reported Reaction Date of Last Stent Placement:: 07/19/2011 Smoking Status: Current every day smoker - Past Family History Mother Family Medical History: Cancer Additional Family Medical History / Comment(s): tongue Medications and Allergies Home Medications Medication Instructions Recorded Confirmed Type Aspirin 81 mg PO DAILY 08/22/14 04/02/21 History Cyclobenzaprine [Flexeril] 10 mg PO TID 08/22/14 04/02/21 History Gabapentin 800 mg PO TID 08/22/14 04/02/21 History Ibuprofen [Motrin] 800 mg PO TID PRN 08/22/14 04/02/21 History HYDROcodone/APAP 10-325MG [Bazine 1 tab PO TID PRN 09/15/17 04/02/21 History 10-325] ALPRAZolam [Xanax] 0.25 mg PO BID 04/02/21 04/02/21 History Acetaminophen [Tylenol Extra 1,000 mg PO Q6H PRN 04/02/21 04/02/21 History Strength] Atorvastatin [Lipitor] 20 mg PO HS 04/02/21 04/02/21 History Cholecalciferol [Vitamin D3 (25 25 mcg PO DAILY 04/02/21 04/02/21 History Mcg = 1000 Iu)] Citalopram Hydrobromide [CeleXA] 40 mg PO DAILY 04/02/21 04/02/21 History Metoprolol Succinate (ER) [Toprol 12.5 mg PO DAILY 04/02/21 04/02/21 History Xl] Allergies Allergy/AdvReac Type Severity Reaction Status Date / Time adhesive Allergy BLISTERS Verified 04/02/21 22:38 codeine Allergy Unknown Verified 04/02/21 22:38 Iodine and Iodide Containing Allergy Unknown Verified 04/02/21 22:38 Produc morphine Allergy Swelling Verified 04/02/21 22:38 Penicillins Allergy Swelling Verified 04/02/21 22:38 Surgical - Exam Vital Signs Temp Pulse Resp BP Pulse Ox 99.3 F 120 H 24 187/110 88 L 04/02/21 19:16 04/02/21 19:16 04/02/21 19:16 04/02/21 19:16 04/02/21 19:16 - General well developed, well nourished, no distress - Respiratory normal respiratory effort - Abdomen Soft, non-distended, with no palpable mass. There is diffuse tenderness, withou t guarding or rebound. - Psychiatric oriented to time, oriented to person, oriented to place, speech is normal, memory intact Results - Labs 04/03/21 05:36 04/03/21 05:36 Abnormal Lab Results - Last 24 Hours (Table) 04/02/21 04/02/21 04/02/21 Range/Units 19:42 19:42 19:42 WBC 20.9 H (3.8-10.6) k/uL RBC (3.80-5.40) m/uL MCV (80.0-100.0) fL Plt Count (150-450) k/uL Neutrophils # (Manual) 16.70 H (1.3-7.7) k/uL Monocytes # (Manual) 1.88 H (0-1.0) k/uL Metamyelocytes # (Man) 0.42 H (0) k/uL Sodium 135 L (137-145) mmol/L Chloride (98-107) mmol/L Carbon Dioxide 18 L (22-30) mmol/L BUN 27 H (7-17) mg/dL Creatinine 2.25 H (0.52-1.04) mg/dL Glucose 109 H (74-99) mg/dL POC Glucose (mg/dL) (75-99) mg/dL Plasma Lactic Acid Shadi 3.8 H* (0.7-2.0) mmol/L Calcium (8.4-10.2) mg/dL Magnesium 1.4 L (1.6-2.3) mg/dL AST 115 H (14-36) U/L ALT 75 H (4-34) U/L Alkaline Phosphatase 140 H (38-126) U/L Total Protein 6.0 L (6.3-8.2) g/dL Albumin (3.5-5.0) g/dL Urine Appearance (Clear) Urine Protein (Negative) Urine Blood (Negative) Ur Leukocyte Esterase (Negative) Urine RBC (0-5) /hpf Urine WBC (0-5) /hpf Urine WBC Clumps (None) /hpf Urine Mucus (None) /hpf 04/02/21 04/02/21 04/03/21 Range/Units 20:50 23:05 02:25 WBC (3.8-10.6) k/uL RBC (3.80-5.40) m/uL MCV (80.0-100.0) fL Plt Count (150-450) k/uL Neutrophils # (Manual) (1.3-7.7) k/uL Monocytes # (Manual) (0-1.0) k/uL Metamyelocytes # (Man) (0) k/uL Sodium (137-145) mmol/L Chloride (98-107) mmol/L Carbon Dioxide (22-30) mmol/L BUN (7-17) mg/dL Creatinine (0.52-1.04) mg/dL Glucose (74-99) mg/dL POC Glucose (mg/dL) (75-99) mg/dL Plasma Lactic Acid Shadi 2.1 H* 3.0 H* (0.7-2.0) mmol/L Calcium (8.4-10.2) mg/dL Magnesium (1.6-2.3) mg/dL AST (14-36) U/L ALT (4-34) U/L Alkaline Phosphatase (38-126) U/L Total Protein (6.3-8.2) g/dL Albumin (3.5-5.0) g/dL Urine Appearance Turbid H (Clear) Urine Protein 3+ H (Negative) Urine Blood Large H (Negative) Ur Leukocyte Esterase Large H (Negative) Urine RBC >182 H (0-5) /hpf Urine WBC >182 H (0-5) /hpf Urine WBC Clumps Many H (None) /hpf Urine Mucus Rare H (None) /hpf 04/03/21 04/03/21 04/03/21 Range/Units 05:17 05:36 05:36 WBC 17.1 H (3.8-10.6) k/uL RBC 3.49 L (3.80-5.40) m/uL MCV 101.2 H (80.0-100.0) fL Plt Count 117 L (150-450) k/uL Neutrophils # (Manual) (1.3-7.7) k/uL Monocytes # (Manual) (0-1.0) k/uL Metamyelocytes # (Man) (0) k/uL Sodium 135 L (137-145) mmol/L Chloride 111 H (98-107) mmol/L Carbon Dioxide 19 L (22-30) mmol/L BUN 30 H (7-17) mg/dL Creatinine 1.93 H (0.52-1.04) mg/dL Glucose (74-99) mg/dL POC Glucose (mg/dL) 101 H (75-99) mg/dL Plasma Lactic Acid Shadi (0.7-2.0) mmol/L Calcium 7.6 L (8.4-10.2) mg/dL Magnesium (1.6-2.3) mg/dL AST 93 H (14-36) U/L ALT 63 H (4-34) U/L Alkaline Phosphatase (38-126) U/L Total Protein 4.9 L (6.3-8.2) g/dL Albumin 2.7 L (3.5-5.0) g/dL Urine Appearance (Clear) Urine Protein (Negative) Urine Blood (Negative) Ur Leukocyte Esterase (Negative) Urine RBC (0-5) /hpf Urine WBC (0-5) /hpf Urine WBC Clumps (None) /hpf Urine Mucus (None) /hpf Microbiology - Last 24 Hours (Table) 04/02/21 20:50 Urine Culture - Preliminary Urine,Clean Catch Diabetes panel 04/02/21 04/03/21 Range/Units 19:42 05:36 Sodium 135 L 135 L (137-145) mmol/L Potassium 3.5 4.4 (3.5-5.1) mmol/L Chloride 107 111 H (98-107) mmol/L Carbon Dioxide 18 L 19 L (22-30) mmol/L BUN 27 H 30 H (7-17) mg/dL Creatinine 2.25 H 1.93 H (0.52-1.04) mg/dL Glucose 109 H 87 (74-99) mg/dL Calcium 9.3 7.6 L (8.4-10.2) mg/dL AST 115 H 93 H (14-36) U/L ALT 75 H 63 H (4-34) U/L Alkaline Phosphatase 140 H 124 (38-126) U/L Total Protein 6.0 L 4.9 L (6.3-8.2) g/dL Albumin 3.6 2.7 L (3.5-5.0) g/dL Calcium panel 04/02/21 04/03/21 Range/Units 19:42 05:36 Calcium 9.3 7.6 L (8.4-10.2) mg/dL Albumin 3.6 2.7 L (3.5-5.0) g/dL Pituitary panel 04/02/21 04/03/21 Range/Units 19:42 05:36 Sodium 135 L 135 L (137-145) mmol/L Potassium 3.5 4.4 (3.5-5.1) mmol/L Chloride 107 111 H (98-107) mmol/L Carbon Dioxide 18 L 19 L (22-30) mmol/L BUN 27 H 30 H (7-17) mg/dL Creatinine 2.25 H 1.93 H (0.52-1.04) mg/dL Glucose 109 H 87 (74-99) mg/dL Calcium 9.3 7.6 L (8.4-10.2) mg/dL Adrenal panel 04/02/21 04/03/21 Range/Units 19:42 05:36 Sodium 135 L 135 L (137-145) mmol/L Potassium 3.5 4.4 (3.5-5.1) mmol/L Chloride 107 111 H (98-107) mmol/L Carbon Dioxide 18 L 19 L (22-30) mmol/L BUN 27 H 30 H (7-17) mg/dL Creatinine 2.25 H 1.93 H (0.52-1.04) mg/dL Glucose 109 H 87 (74-99) mg/dL Calcium 9.3 7.6 L (8.4-10.2) mg/dL Total Bilirubin 0.4 0.2 (0.2-1.3) mg/dL AST 115 H 93 H (14-36) U/L ALT 75 H 63 H (4-34) U/L Alkaline Phosphatase 140 H 124 (38-126) U/L Total Protein 6.0 L 4.9 L (6.3-8.2) g/dL Albumin 3.6 2.7 L (3.5-5.0) g/dL - Imaging CT scan - abdomen: report reviewed, image reviewed Assessment and Plan (1) Acute pyelonephritis Current Visit: Yes Status: Acute Code(s): N10 - ACUTE PYELONEPHRITIS SNOMED Code(s): 98429286 Plan: Patient appears to have acute right pyelonephritis. She is currently receiving Rocephin. This will be continued, pending the results of urine and blood cultures. I do not feel that any surgical intervention is warranted at this time. Time with Patient: Greater than 30
[2021-04-03] MEDS: GABAPENTIN 400 MG CAP PO SCH ×3 (09:54→21:59)
[2021-04-03] MEDS: CHOLECALCIFEROL 25 MCG (1000 IU) TABLET PO SCH (09:55)
[2021-04-03] MEDS: METOPROLOL SUCCINATE (ER) 25 MG TAB.ER.24H PO SCH (09:55)
[2021-04-03] MEDS: ALPRAZolam 0.25 MG TAB PO SCH ×2 (09:55→21:59)
[2021-04-03] MEDS ORDERED: CYCLOBENZAPRINE 10 MG TAB PO SCH (12:00)
[2021-04-03] MEDS: ACETAMINOPHEN TAB 325 MG TAB PO PRN ×2 (12:58→20:09)
[2021-04-03] MEDS: PANTOPRAZOLE 40 MG/10 ML VIAL IVP SCH (14:55)
--- NOTE | 2021-04-03 16:25 | P.HPIM ---
History of Present Illness H&P Date: 04/03/21 Chief Complaint: Right flank pain, Nausea vomiting, weakness, This is 60-year-old female with a past medical history of coronary artery disease, CVA, GERD, hypertension, NH, and nicotine dependence, presented to the ER with complaints of right flank pain radiating to the groin that started earlier in the a.m. accompanied by nausea, vomiting, weakness and shortness of breath. Denies fever or chills. Denies any chest pain, palpitations. Denies any lightheadedness, dizziness or focal deficits. Hypertensive, tachycardic, febrile with borderline hypoxia on admission.WBC 20.9, hemoglobin 11.4, platelets 117. Lactic acid 3.8, 2.1, 3.0. Became Hypotensive, received a total of 4 L of IV fluids. Currently lactic acid decreased to 1.8. requiring 5 L nasal cannula and maintaining O2 sats in the 90s. Chest x-ray reported mild interstitial infiltrates, subsegmental atelectasis at bilateral bases similar to prior exam. CT of abdomen and pelvis reported right sided hydronephrosis and hydroureter with perinephric edema that could relate to non-opaque obstructing stone or recently passed stone. Common bile duct large, measuring up to 13 mm. sodium 135, potassium 4.4 BUN 30, creatinine 1.93. Magnesium 1.4, repeat level pending. Elevated LFTs, improving .UA reporting greater than 182 WBCs, large leukocytes, negative nitrate. Urine and blood cultures obtained .Maintained on IV fluids and IV antibiotics. Evaluated by urology, with no surgical intervention recommended at this time. IV fluids and IV antibiotics of ceftriaxone initiated Review of Systems ROS Other: All systems not noted in ROS Statement are negative. ROS Statement: Those systems with pertinent positive or pertinent negative responses have been documented in the HPI. Past Medical History Past Medical History: Coronary Artery Disease (CAD), Cancer, CVA/TIA, GERD/Reflux, Hypertension, Myocardial Infarction ([place]) Additional Past Medical History / Comment(s): hx cervical cancer, hypoglycemia, lower back and pelvic pain Last Myocardial Infarction Date:: 07/19/2011 History of Any Multi-Drug Resistant Organisms: None Reported Past Surgical History: Back Surgery, Cholecystectomy, Heart Catheterization With Stent, Hysterectomy, Orthopedic Surgery, Tubal Ligation Additional Past Surgical History / Comment(s): RIGHT WRIST, LAPAROSCOPIC SURGERY, heart stent x2 Past Anesthesia/Blood Transfusion Reactions: No Reported Reaction Date of Last Stent Placement:: 07/19/2011 Smoking Status: Current every day smoker - Past Family History Mother Family Medical History: Cancer Additional Family Medical History / Comment(s): tongue Medications and Allergies Home Medications Medication Instructions Recorded Confirmed Type Aspirin 81 mg PO DAILY 08/22/14 04/02/21 History Cyclobenzaprine [Flexeril] 10 mg PO TID 08/22/14 04/02/21 History Gabapentin 800 mg PO TID 08/22/14 04/02/21 History Ibuprofen [Motrin] 800 mg PO TID PRN 08/22/14 04/02/21 History HYDROcodone/APAP 10-325MG [Arlee 1 tab PO TID PRN 09/15/17 04/02/21 History 10-325] ALPRAZolam [Xanax] 0.25 mg PO BID 04/02/21 04/02/21 History Acetaminophen [Tylenol Extra 1,000 mg PO Q6H PRN 04/02/21 04/02/21 History Strength] Atorvastatin [Lipitor] 20 mg PO HS 04/02/21 04/02/21 History Cholecalciferol [Vitamin D3 (25 25 mcg PO DAILY 04/02/21 04/02/21 History Mcg = 1000 Iu)] Citalopram Hydrobromide [CeleXA] 40 mg PO DAILY 04/02/21 04/02/21 History Metoprolol Succinate (ER) [Toprol 12.5 mg PO DAILY 04/02/21 04/02/21 History Xl] Allergies Allergy/AdvReac Type Severity Reaction Status Date / Time adhesive Allergy BLISTERS Verified 04/02/21 22:38 codeine Allergy Unknown Verified 04/02/21 22:38 Iodine and Iodide Containing Allergy Unknown Verified 04/02/21 22:38 Produc morphine Allergy Swelling Verified 04/02/21 22:38 Penicillins Allergy Swelling Verified 04/02/21 22:38 Physical Exam Vitals: Vital Signs Temp Pulse Resp BP Pulse Ox 04/03/21 14:00 117 H 27 H 89/57 93 L 04/03/21 13:30 118 H 28 H 107/61 94 L 04/03/21 13:00 121 H 28 H 107/61 95 04/03/21 12:30 128 H 31 H 103/72 91 L 04/03/21 12:00 101.8 F H 117 H 30 H 109/75 91 L 04/03/21 11:30 118 H 30 H 116/94 89 L 04/03/21 11:23 116 H 04/03/21 11:15 114 H 04/03/21 11:00 114 H 28 H 107/70 94 L 04/03/21 10:30 112 H 25 H 111/70 95 04/03/21 10:00 115 H 24 101/71 97 04/03/21 09:30 113 H 26 H 98/69 98 04/03/21 09:00 111 H 20 94/68 97 04/03/21 08:30 111 H 23 90/63 94 L 04/03/21 08:02 108 H 04/03/21 08:00 99.1 F 109 H 23 93/64 94 L 04/03/21 07:53 108 H 98 04/03/21 07:30 107 H 22 85/65 99 04/03/21 07:00 108 H 19 85/65 100 04/03/21 06:30 109 H 19 90/65 97 04/03/21 06:00 108 H 17 79/59 98 04/03/21 05:30 99.1 F 106 H 21 80/58 98 08 05:19 108 H 21 04/03/21 04:00 107 H 19 86/58 95 04/03/21 03:00 118 H 18 80/51 95 04/03/21 02:29 114 H 28 H 104/58 96 04/03/21 01:00 112 H 16 73/50 96 04/03/21 00:00 110 H 18 73/50 96 04/02/21 23:40 112 H 79/41 04/02/21 23:31 98.9 F 112 H 20 69/46 96 04/02/21 22:00 110 H 18 73/51 95 04/02/21 21:04 100.3 F H 112 H 20 68/47 93 L 04/02/21 20:24 117 H 22 76/43 92 L 04/02/21 19:16 99.3 F 120 H 24 187/110 88 L Intake and Output 04/03/21 04/03/21 04/03/21 06:59 14:59 22:59 Intake Total 260 1790 Output Total 425 900 Balance -165 890 Intake: IV 260 1040 .9 @ 130 mL/hr 260 1040 Oral 750 Output: Urine 425 900 Other: Voiding Method Indwelling Catheter Indwelling Catheter Weight 65.771 kg PHYSICAL EXAM: VITAL SIGNS: As above GENERAL: Sitting up in bed in no acute distress HEENT: Conjunctivae normal. eyes normal. NECK: No JVD. No thyroid enlargement. No LNs CARDIOVASCULAR: S1, S2 regular.. No murmur RESPIRATION: Breath sounds diminished in the bases. Scattered rhonchi or crackles. No bronchial breathing. ABDOMEN: Soft, nondistended, diffuse right flank tenderness.No guarding. no masses palpable. No ascites, No hepatosplenomegaly.Bowel sounds heard. LEGS: No edema. no swelling PSYCHIATRY: Alert and oriented X3, mood and affect normal. NERVOUS SYSTEM: Cranial N 2-12 grossly normal. Moves all 4 limbs. Diffuse weakness No focal deficits. Strength and sensation grossly intact. Skin: Warm and dry, no rash Lymphatic system. No LN neck axilla. Results CBC & Chem 7: 04/03/21 05:36 04/03/21 05:36 Labs: Abnormal Lab Results - Last 24 Hours (Table) 04/02/21 04/02/21 04/02/21 Range/Units 19:42 19:42 19:42 WBC 20.9 H (3.8-10.6) k/uL RBC (3.80-5.40) m/uL MCV (80.0-100.0) fL Plt Count (150-450) k/uL Neutrophils # (Manual) 16.70 H (1.3-7.7) k/uL Monocytes # (Manual) 1.88 H (0-1.0) k/uL Metamyelocytes # (Man) 0.42 H (0) k/uL Myelocytes # (Manual) (0) k/uL Sodium 135 L (137-145) mmol/L Chloride (98-107) mmol/L Carbon Dioxide 18 L (22-30) mmol/L BUN 27 H (7-17) mg/dL Creatinine 2.25 H (0.52-1.04) mg/dL Glucose 109 H (74-99) mg/dL POC Glucose (mg/dL) (75-99) mg/dL Plasma Lactic Acid Shadi 3.8 H* (0.7-2.0) mmol/L Calcium (8.4-10.2) mg/dL Magnesium 1.4 L (1.6-2.3) mg/dL AST 115 H (14-36) U/L ALT 75 H (4-34) U/L Alkaline Phosphatase 140 H (38-126) U/L Total Protein 6.0 L (6.3-8.2) g/dL Albumin (3.5-5.0) g/dL Urine Appearance (Clear) Urine Protein (Negative) Urine Blood (Negative) Ur Leukocyte Esterase (Negative) Urine RBC (0-5) /hpf Urine WBC (0-5) /hpf Urine WBC Clumps (None) /hpf Urine Mucus (None) /hpf 04/02/21 04/02/21 04/03/21 Range/Units 20:50 23:05 02:25 WBC (3.8-10.6) k/uL RBC (3.80-5.40) m/uL MCV (80.0-100.0) fL Plt Count (150-450) k/uL Neutrophils # (Manual) (1.3-7.7) k/uL Monocytes # (Manual) (0-1.0) k/uL Metamyelocytes # (Man) (0) k/uL Myelocytes # (Manual) (0) k/uL Sodium (137-145) mmol/L Chloride (98-107) mmol/L Carbon Dioxide (22-30) mmol/L BUN (7-17) mg/dL Creatinine (0.52-1.04) mg/dL Glucose (74-99) mg/dL POC Glucose (mg/dL) (75-99) mg/dL Plasma Lactic Acid Shadi 2.1 H* 3.0 H* (0.7-2.0) mmol/L Calcium (8.4-10.2) mg/dL Magnesium (1.6-2.3) mg/dL AST (14-36) U/L ALT (4-34) U/L Alkaline Phosphatase (38-126) U/L Total Protein (6.3-8.2) g/dL Albumin (3.5-5.0) g/dL Urine Appearance Turbid H (Clear) Urine Protein 3+ H (Negative) Urine Blood Large H (Negative) Ur Leukocyte Esterase Large H (Negative) Urine RBC >182 H (0-5) /hpf Urine WBC >182 H (0-5) /hpf Urine WBC Clumps Many H (None) /hpf Urine Mucus Rare H (None) /hpf 04/03/21 04/03/21 04/03/21 Range/Units 05:17 05:36 05:36 WBC 17.1 H (3.8-10.6) k/uL RBC 3.49 L (3.80-5.40) m/uL MCV 101.2 H (80.0-100.0) fL Plt Count 117 L (150-450) k/uL Neutrophils # (Manual) 14.30 H (1.3-7.7) k/uL Monocytes # (Manual) (0-1.0) k/uL Metamyelocytes # (Man) 0.86 H (0) k/uL Myelocytes # (Manual) 0.34 H (0) k/uL Sodium 135 L (137-145) mmol/L Chloride 111 H (98-107) mmol/L Carbon Dioxide 19 L (22-30) mmol/L BUN 30 H (7-17) mg/dL Creatinine 1.93 H (0.52-1.04) mg/dL Glucose (74-99) mg/dL POC Glucose (mg/dL) 101 H (75-99) mg/dL Plasma Lactic Acid Shadi (0.7-2.0) mmol/L Calcium 7.6 L (8.4-10.2) mg/dL Magnesium (1.6-2.3) mg/dL AST 93 H (14-36) U/L ALT 63 H (4-34) U/L Alkaline Phosphatase (38-126) U/L Total Protein 4.9 L (6.3-8.2) g/dL Albumin 2.7 L (3.5-5.0) g/dL Urine Appearance (Clear) Urine Protein (Negative) Urine Blood (Negative) Ur Leukocyte Esterase (Negative) Urine RBC (0-5) /hpf Urine WBC (0-5) /hpf Urine WBC Clumps (None) /hpf Urine Mucus (None) /hpf Microbiology - Last 24 Hours (Table) 04/02/21 21:40 Blood Culture - Final Blood 04/02/21 21:55 Blood Culture - Final Blood 04/02/21 20:50 Urine Culture - Preliminary Urine,Clean Catch Thrombosis Risk Factor Assmnt - Choose All That Apply Any of the Below Risk Factors Present?: No Other Risk Factors: No Thrombosis Risk Factor Assessment Level: Very Low Risk Assessment and Plan Assessment: Sepsis secondary to acute right pyelonephritis Acute renal failure, Bibasilar atelectasis, CAD, history of NH Gastroesophageal reflux disease History of CVA History of cervical cancer Anxiety Depression Ongoing nicotine dependence Plan: Continue on current medication regime ,monitoring and symptomatic treatment. Urine culture pending. Maintain nebulized bronchodilators, IV fluid hydration, antibiotics. No surgical intervention as per urology at this time. The impression and plan of care has been dictated as directed. : I performed a history and examination of this patient, discussed the same with the dictator. I agree with the dictator's note ,documented as a scribe. Any additional findings or plans will be noted.
[2021-04-03] MEDS ORDERED: Potassium Replacement Protocol 1 EACH MISC MISCELLANE PRN (16:37)
[2021-04-03] MEDS ORDERED: Magnesium Replacement Protocol 1 EACH MISC MISCELLANE PRN (16:37)
[2021-04-03] MEDS ORDERED: SODIUM CHLORIDE 0.9% 1,000 ML IV ONE (16:38)
[2021-04-03] MEDS: MAGNESIUM SULFATE-D5W PMX 1 GM in DEXTROSE/WATER 1 100ML.BAG IVPB SCH ×3 (16:46→18:53)
[2021-04-03] MEDS: NOREPINEPHRINE 4 MG in SODIUM CHLORIDE 0.9% 250 ML IV SCH (18:51)
[2021-04-03] MEDS: ATORVASTATIN 20 MG TAB PO SCH (21:59)
[2021-04-04] MEDS: HYDROcodone/APAP 10-325MG 1 EACH TAB PO PRN ×2 (01:13→18:40)
[2021-04-04] MEDS: SODIUM CHLORIDE 0.9% 1,000 ML IV SCH ×3 (03:13→19:36)
[2021-04-04 05:02] LABS: HCT 34.2 % (34.0-46.0); MCH 32.6 pg (25.0-35.0); MCHC 32.1 g/dL (31.0-37.0); MCV 101.5 fL (80.0-100.0); Macrocytosis Slight; Mean Platelet Volume 8.6; RBC 3.37 m/uL (3.80-5.40); WBC 11.9 k/uL (3.8-10.6)
[2021-04-04 05:15] LABS: Calcium 7.7 mg/dL (8.4-10.2); Magnesium 2.5 mg/dL (1.6-2.3); Potassium 4.1 mmol/L (3.5-5.1)
--- NOTE | 2021-04-04 06:28 | XR ---
EXAMINATION TYPE: XR chest 1V portable DATE OF EXAM: 04/04/2021 CLINICAL HISTORY: Difficulty breathing and cough. TECHNIQUE: Single AP portable upright view of the chest is obtained. COMPARISON: Chest x-ray from 2 days earlier FINDINGS: Patient remains slightly rotated to the right. There are chronic emphysematous and parench ymal changes bilaterally without suspicious new focal airspace opacity, pleural effusion, or pneumoth orax seen. Cardiac silhouette size stable and within normal limits. Osseous structures are intact. Ov erlying EKG leads are seen in current study. IMPRESSION: Chronic parenchymal changes without acute pulmonary process.
[2021-04-04 06:44] LABS: Band Neutrophils % 36 %; Eosinophils # (M) 0.12 k/uL (0-0.7); Lymphocytes # (M) 0.83 k/uL (1.0-4.8); Metamyelocytes # (M) 0.12 k/uL (0); Metamyelocytes % 1 %; Monocytes # (M) 0.12 k/uL (0-1.0); Neutrophils % (M) 56 %; Nucleated Red Blood Cells 0 /100 WBC (0-0); Total Cells Counted 200
[2021-04-04 06:47] LABS: Anisocytosis (M) Present; Polychromasia Present
[2021-04-04 06:51] LABS: Platelet Count 83 k/uL (150-450)
[2021-04-04] MEDS: IPRATROPIUM-ALBUTEROL 3 ML NEB INHALATION SCH ×3 (07:52→22:04)
[2021-04-04] MEDS: METOPROLOL SUCCINATE (ER) 25 MG TAB.ER.24H PO SCH (09:15)
[2021-04-04] MEDS: ALPRAZolam 0.25 MG TAB PO SCH ×2 (09:15→20:36)
[2021-04-04] MEDS: GABAPENTIN 400 MG CAP PO SCH ×3 (09:16→20:36)
[2021-04-04] MEDS: PANTOPRAZOLE 40 MG/10 ML VIAL IVP SCH (09:16)
[2021-04-04] MEDS: CHOLECALCIFEROL 25 MCG (1000 IU) TABLET PO SCH (09:16)
--- NOTE | 2021-04-04 09:19 | P.PN ---
Subjective Progress Note Date: 04/04/21 Principal diagnosis: Urosepsis/septic shock. Pulmonary consult dated 04/03/2021. This is a 68-year-old female, who presents to the emergency department, not feeling well. She apparently started off with right flank pain the morning of admission to the emergency department. Symptoms apparently progress. She was also having nausea and vomiting. She was feeling very weak. She apparently also was complaining of shortness of breath. No chest pain headache or dizziness. The patient denied any dysuria, hematuria, or foul-smelling urine. She had no fever or chills or other complaints. I was called by the ER physician who wanted to admit the patient to the intensive care unit for urinary tract infection/urosepsis, with hydronephrosis. Urology was notified. She apparently has a history of CAD, CVA, GERD, hypertension, myocardial infarction, cervical cancer, and low back pain. White count was 20.9, hemoglobin 13.4, hematocrit 39.3, platelet count 160,000. Sodium 135, potassium 3.5, chlorides 107, CO2 18, anion gap 10, BUN 27, creatinine 2.25. Lactic acid was initially 2.1 and then increased to 3.0. AST 115 ALT 75. Coronavirus testing was negative. Urine was turbid, with 3+ protein, large amount of blood, large positive leukocyte esterase, greater than 182 RBCs and WBCs, many white blood cell clumps. Chest x-ray revealed some interstitial infiltrates and atelectasis at the lung bases. A CT of the abdomen and pelvis revealed some interstitial infiltrates and emphysematous changes at the lung bases bilaterally, without any suspicious pulmonary masses. There is right-sided hydronephrosis and hydroureter with perinephric edema. No stone noted. Progress note dated 04/04/2021. 68-year-old female with a history of urinary tract infection/urosepsis, pyelonephritis, with hydronephrosis, and E. coli septic shock. Currently, patient's doing better. Her blood pressure is a little soft last night, so we gave her some additional fluids. She never required vasopressor. She is on 5 L nasal cannula. She's getting saline at 130 mL an hour. Her blood and urine was positive pressure recheck E. coli. She's currently on IV Rocephin. I read the note from the urologist, who does not anticipate any surgical intervention at this time. White count 11.9, hemoglobin 11, hematocrit 34.2, platelet count 83,000. Sodium 135, potassium 4.1, chlorides 111, CO2 19, anion gap is 5, BUN 25, creatinine 1.50. Chest x-ray shows nothing acute. A flatplate of the abdomen was done because of abdominal distention. Objective - Vital Signs Vital signs: Vital Signs Temp 99.3 F 04/04/21 04:00 Pulse 110 H 04/04/21 08:01 Resp 20 04/04/21 07:00 BP 107/63 04/04/21 07:00 Pulse Ox 95 04/04/21 07:53 Intake & Output 04/03/21 04/04/21 04/04/21 18:59 06:59 18:59 Intake Total 3810 2896 130 Output Total 1450 1426 Balance 2360 1470 130 Weight 74.2 kg Intake: IV 1560 1560 130 .9 @ 130 mL/hr 1560 1560 130 Intake, IV Titration 1200 100 Amount Magnesium Sulfate-D5w Pmx 200 100 1 gm In Dextrose/Water 1 100ml.bag @ 100 mls/hr IVPB Q1H [facility] Rx#: [id number] Sodium Chloride 0.9% 1, 1000 000 ml @ 999 mls/hr IV . Q1H1M [facility] Rx#:[id number] Oral 1050 1236 Output: Urine 1450 1426 Other: Voiding Method Indwelling Catheter Indwelling Catheter - Exam No acute distress, oriented 3. Currently on 5 L nasal cannula. No respiratory distress, use of accessory muscles, or conversational dyspnea. HEENT examination is grossly unremarkable. Neck supple. Full range of motion. No adenopathy thyromegaly or neck vein distention. Cardiovascular examination reveals regular rhythm rate. S1-S2 normal. No S3 or S4. No discernible murmur noted. Heart rate 110. Lungs reveal mild scattered rhonchi. No wheezes or crackles. Breath sounds equal bilaterally. Saturation 95% on 4 L. Abdomen mildly distended and tender. Bowel sounds are noted. No masses. Extremities are intact. No cyanosis clubbing or edema. Skin is without rash or lesion. Neurologic examination is brief but nonfocal. - Labs CBC & Chem 7: 04/04/21 03:49 04/04/21 03:49 Labs: Abnormal Lab Results - Last 24 Hours (Table) 04/03/21 04/04/21 04/04/21 Range/Units 05:36 03:49 03:49 WBC 11.9 H (3.8-10.6) k/uL RBC 3.37 L (3.80-5.40) m/uL Hgb 11.0 L (11.4-16.0) gm/dL MCV 101.5 H (80.0-100.0) fL Plt Count 83 L (150-450) k/uL Neutrophils # (Manual) 10.90 H (1.3-7.7) k/uL Lymphocytes # (Manual) 0.83 L (1.0-4.8) k/uL Metamyelocytes # (Man) 0.12 H (0) k/uL Sodium 135 L (137-145) mmol/L Chloride 111 H (98-107) mmol/L Carbon Dioxide 19 L (22-30) mmol/L BUN 25 H (7-17) mg/dL Creatinine 1.50 H (0.52-1.04) mg/dL Calcium 7.7 L (8.4-10.2) mg/dL Magnesium 1.4 L 2.5 H (1.6-2.3) mg/dL Microbiology - Last 24 Hours (Table) 04/02/21 20:50 Urine Culture - Preliminary Urine,Clean Catch Gram Neg Bacilli 04/02/21 21:40 Blood Culture Gram Stain - Preliminary Blood Blood Culture - Preliminary Gram Neg Bacilli 04/02/21 21:55 Blood Culture Gram Stain - Preliminary Blood Blood Culture - Preliminary Escherichia coli 04/02/21 21:40 Blood Culture - Final Blood 04/02/21 21:55 Blood Culture - Final Blood Assessment and Plan Assessment: Acute pyelonephritis with urosepsis/septic shock and evidence of hydronephrosis and hydroureter without obvious stone. Escherichia coli urosepsis/septic shock with bacteremia. Bibasilar atelectasis, doubt pneumonia. History of CAD, status post stent placement. History of CVA. History of gastroesophageal reflux disease. History of hypertension. History of myocardial infarction. History of cervical cancer. History of ongoing tobacco use with nicotine addiction. Plan: Plan dated 04/03/2021. Currently, the patient's on 5 L nasal cannula, is receiving saline at 130 mL an hour. She is also receiving ceftriaxone. No pressor at this time. I will add some updrafts. She is a chronic tobacco user. Changes of the lung bases likely reflect atelectasis rather than pneumonia. We will continue to follow. Prognosis is guarded. Urology has been notified. Plan dated 04/04/2021. The patient's O2 is been turned on the 4 L. Saturations are 95%. She remains o n Rocephin. Urine and blood for positive for Escherichia coli. The patient is feeling better today. Of note, the patient does have some abdominal distention and tenderness. A flat plate of the abdomen was ordered. Labs are reviewed. Chest x-ray shows chronic changes without anything acute. Urology is not planning any surgical intervention at this time. Time with Patient: Less than 30
--- NOTE | 2021-04-04 09:22 | XR ---
EXAMINATION TYPE: XR abdomen 1V DATE OF EXAM: 04/04/2021 9:10 AM CLINICAL HISTORY: Abdominal pain and distention. TECHNIQUE: Two supine portable KUB images of the abdomen are obtained. COMPARISON: CT abdomen and pelvis 2 days ago. FINDINGS: Persistent mild to moderate bowel gas distended stomach. Slightly more prominent gas filled small and large bowel loops in the right abdomen . Nondistended gas filled small bowel loops in the left abdomen. Left-sided pelvic phleboliths. Lung bases remain clear. Cholecystectomy clips redemonst rated. Prominent right hepatic lobe and/or hepatomegaly again seen. Osseous structures are intact. IMPRESSION: Overall nonspecific but favor nonobstructive bowel gas pattern. No significant change from prior.
--- NOTE | 2021-04-04 09:23 | P.PN ---
Progress Note - Text Progress Note Date: 04/04/21 The patient reports increased right sided abdominal pain today. Her temperature is 99.3F. She remains tachycardic. Blood culture shows E. coli. Urine culture shows gram-negative bacilli. The computed tomography scan showed evidence of right hydroureteronephrosis of indeterminate etiology. In view of her increased pain, I have ordered a renal ultrasound.
--- NOTE | 2021-04-04 10:05 | US ---
EXAMINATION TYPE: US kidneys/renal and bladder DATE OF EXAM: 04/04/2021 COMPARISON: CT 2 days ago. CLINICAL HISTORY: Hydronephrosis. rt flank pain on ICU pt EXAM MEASUREMENTS: Right Kidney: 12.1 x 5.0 x 6.0 cm Left Kidney: 12.0 x 4.2 x 4.7 cm Right Kidney: No hydronephrosis or masses seen Left Kidney: No hydronephrosis or masses seen Bladder: godoy cath Interval resolution of mild right-sided hydronephrosis. No left-sided hydronephrosis No masses are id entified on images saved. Godoy catheter decompresses bladder. IMPRESSION: No hydronephrosis identified currently.
[2021-04-04] MEDS: NICOTINE 14MG/24HR PATCH TRANSDERM SCH (12:15)
[2021-04-04] MEDS ORDERED: FUROSEMIDE 10 MG/ML 4 ML VIAL IV STA (12:25)
[2021-04-04] MEDS: NOREPINEPHRINE 4 MG in SODIUM CHLORIDE 0.9% 250 ML IV SCH (14:33)
--- NOTE | 2021-04-04 15:27 | CT ---
EXAMINATION TYPE: CT abdomen pelvis wo con DATE OF EXAM: 04/04/2021 COMPARISON: 04/02/2021 INDICATION: h/o increased abdominal pain/distention DLP: 504.7 mGycm, Automated exposure control for dose reduction was used. CONTRAST: 0 mL of Isovue 300. Study performed without Oral Contrast TECHNIQUE: Axial images were obtained from above the diaphragm to the pubic rami in the axial plane a t 5 mm thick sections. Reconstructed images are reviewed on the computer in the coronal plane. FINDINGS: Limited CT sections are obtained the lung bases. There is a consolidation with air bronchograms in t he right lower lobe. Small bilateral pleural effusions are present. Some emphysematous changes are pr esent.. CT ABDOMEN: Liver: Normal Spleen: Normal Pancreas: Normal Adrenal glands: The adrenal glands are normal. Gallbladder: Normal Kidneys: Some loculated air appears to be within the anterior superior right kidney cortex. Correlate for trauma history. Infection could be considered. Right kidney appears slightly larger than the lef t. No masses are evident. No hydronephrosis is present. No cysts are present. No renal stones are identified. Aorta: Vascular calcification is within the aorta. Inferior vena cava: Normal. CT PELVIS: There are scattered air-fluid levels within the loops of bowel. Proximal small bowel loops are somewh at prominent with more normal caliber within the distal small bowel loops. Colon is decompressed. No zone of transition is identified. Appendix: Normal as visualized. Urinary bladder: Decompressed with Stein catheter. No air-fluid levels within the urinary bladder. Genitourinary structures: Uterus and ovaries are not identified. Osseous structures: No suspicious lytic or sclerotic lesions. IMPRESSIONS: 1. Air in the upper pole right kidney. There is an air-fluid level within the urinary bladder. There may be transmitted from the urinary bladder to a superior collecting system and the right kidney. Di fferential however should include gas forming infection. 2. Air within urinary bladder can be related to instrumentation or catheter placement. 3. Consider ileus upper small bowel loops. 4. Consolidation right lower lobe with a small right pleural effusion. Correlate for pneumonia.
--- NOTE | 2021-04-04 16:06 | P.PN ---
Subjective Progress Note Date: 04/04/21 This is 60-year-old female with a past medical history of coronary artery disease, CVA, GERD, hypertension, VA, and nicotine dependence, presented to the ER with complaints of right flank pain radiating to the groin that started earlier in the a.m. accompanied by nausea, vomiting, weakness and shortness of breath. Denies fever or chills. Denies any chest pain, palpitations. Denies any lightheadedness, dizziness or focal deficits. Hypertensive, tachycardic, febrile with borderline hypoxia on admission.WBC 20.9, hemoglobin 11.4, platelets 117. Lactic acid 3.8, 2.1, 3.0. Became Hypotensive, received a total of 4 L of IV fluids. Currently lactic acid decreased to 1.8. requiring 5 L nasal cannula and maintaining O2 sats in the 90s. Chest x-ray reported mild interstitial infiltrates, subsegmental atelectasis at bilateral bases similar to prior exam. CT of abdomen and pelvis reported right sided hydronephrosis and hydroureter with perinephric edema that could relate to non-opaque obstructing stone or recently passed stone. Common bile duct large, measuring up to 13 mm. sodium 135, potassium 4.4 BUN 30, creatinine 1.93. Magnesium 1.4, repeat level pending. Elevated LFTs, improving .UA reporting greater than 182 WBCs, large leukocytes, negative nitrate. Urine and blood cultures obtained .Maintained on IV fluids and IV antibiotics. Evaluated by urology, with no surgical intervention recommended at this time. IV fluids and IV antibiotics of ceftriaxone initiated 04/04/2021 maintained on IV fluid resuscitation of 130 MLS per hour, Rocephin. Positive bowel movement yesterday. Complaining of persistent right flank pain, radiating to mid abdomen. Renal function improving, creatinine down to 1.5. Currently afebrile, T-max 100.1. preliminary blood cultures reporting E. coli, p reliminary urine culture reporting gram-negative bacilli. WBC decreased to 11.9. Mild tachycardia.Denies chest pain, palpitations or shortness of breath. Denies lightheadedness, dizziness or focal deficits. Maintaining O2 sats in the 90s on 5 L nasal cannula. Chest x-ray reporting chronic perforation while changes without acute pulmonary process. Hemoglobin 11, platelets 83. Objective - Vital Signs Vital signs: Vital Signs Temp 97.7 F 04/04/21 08:00 Pulse 118 H 04/04/21 14:00 Resp 29 H 04/04/21 14:00 BP 140/94 04/04/21 14:00 Pulse Ox 94 L 04/04/21 14:00 Intake & Output 04/03/21 04/04/21 04/04/21 18:59 06:59 18:59 Intake Total 3810 2896 770 Output Total 1450 1426 2650 Balance 2360 1470 -1880 Weight 74.2 kg Intake: IV 1560 1560 770 .9 @ 130 mL/hr 1560 1560 770 Intake, IV Titration 1200 100 Amount Magnesium Sulfate-D5w Pmx 200 100 1 gm In Dextrose/Water 1 100ml.bag @ 100 mls/hr IVPB Q1H [facility] Rx#: [id number] Sodium Chloride 0.9% 1, 1000 000 ml @ 999 mls/hr IV . Q1H1M [facility] Rx#:[id number] Oral 1050 1236 Output: Urine 1450 1426 2650 Other: Voiding Method Indwelling Catheter Indwelling Catheter Indwelling Catheter - Exam PHYSICAL EXAM: VITAL SIGNS: As above GENERAL: Sitting up in bed in no acute distress HEENT: Conjunctivae normal. eyes normal. NECK: No JVD. No thyroid enlargement. No LNs CARDIOVASCULAR: S1, S2 regular.. No murmur, tachycardic RESPIRATION: Breath sounds diminished in the bases. Scattered rhonchi or crackles. ABDOMEN: Soft, distended,right flank tenderness radiating to the mid abdomen.No guarding. Positive bowel sounds. LEGS: No edema. no swelling PSYCHIATRY: Alert and oriented X3, mood and affect normal. NERVOUS SYSTEM: Cranial N 2-12 grossly normal. Moves all 4 limbs. Diffuse weakness No focal deficits. Strength and sensation grossly intact. Skin: Warm and dry, no rash Microbiology 04/02/21 21:55 Blood Blood Culture Gram Stain - Preliminary 04/02/21 21:55 Blood Blood Culture - Preliminary Escherichia coli 04/02/21 20:50 Urine,Clean Catch Urine Culture - Preliminary Gram Neg Bacilli 04/02/21 21:40 Blood Blood Culture Gram Stain - Preliminary 04/02/21 21:40 Blood Blood Culture - Preliminary Gram Neg Bacilli 04/02/21 21:40 Blood Blood Culture - Final 04/02/21 21:55 Blood Blood Culture - Final - Labs CBC & Chem 7: 04/04/21 03:49 04/04/21 03:49 Labs: Abnormal Lab Results - Last 24 Hours (Table) 04/03/21 04/04/21 04/04/21 Range/Units 05:36 03:49 03:49 WBC 11.9 H (3.8-10.6) k/uL RBC 3.37 L (3.80-5.40) m/uL Hgb 11.0 L (11.4-16.0) gm/dL MCV 101.5 H (80.0-100.0) fL Plt Count 83 L (150-450) k/uL Neutrophils # (Manual) 10.90 H (1.3-7.7) k/uL Lymphocytes # (Manual) 0.83 L (1.0-4.8) k/uL Metamyelocytes # (Man) 0.12 H (0) k/uL Sodium 135 L (137-145) mmol/L Chloride 111 H (98-107) mmol/L Carbon Dioxide 19 L (22-30) mmol/L BUN 25 H (7-17) mg/dL Creatinine 1.50 H (0.52-1.04) mg/dL Calcium 7.7 L (8.4-10.2) mg/dL Magnesium 1.4 L 2.5 H (1.6-2.3) mg/dL Microbiology - Last 24 Hours (Table) 04/02/21 21:55 Blood Culture Gram Stain - Preliminary Blood Blood Culture - Preliminary Escherichia coli 04/02/21 20:50 Urine Culture - Preliminary Urine,Clean Catch Gram Neg Bacilli 04/02/21 21:40 Blood Culture Gram Stain - Preliminary Blood Blood Culture - Preliminary Gram Neg Bacilli 04/02/21 21:40 Blood Culture - Final Blood 04/02/21 21:55 Blood Culture - Final Blood Assessment and Plan Assessment: Sepsis with Septic shock secondary to acute right pyelonephritis, right hydroureteronephrosis -etiology unclear, bacteremia and UTI, present on admission, Acute UTI with gram-negative bacilli Bacteremia with E. coli Possible ileus Acute renal failure, Bibasilar atelectasis, Thrombocytopenia CAD, history of VA Gastroesophageal reflux disease History of CVA History of cervical cancer Anxiety Depression Ongoing nicotine dependence Plan: Continue on current medication regime ,monitoring and symptomatic treatment. Renal ultrasound pending.Initially complained of constipation, bowel movement yesterday, staff reports diarrhea last night and this morning. KUB reporting nonspecific, favoring nonobstructive bowel gas pattern with no significant change. Repeat CT of abdomen and pelvis ordered. General surgery consulted. ID consulted. Close monitoring of renal function, hemoglobin, platelets, electrolytes with repeat labs ordered for a.m. Prognosis guarded given multiple complex medical issues. The impression and plan of care has been dictated as directed. : I performed a history and examination of this patient, discussed the same with the dictator. I agree with the dictator's note ,documented as a scribe. Any additional findings or plans will be noted.
[2021-04-04] MEDS ORDERED: ACETAMINOPHEN IV (For NPO) 1,000 MG in EMPTY BAG 1 BAG IVPB STA (16:31)
[2021-04-04] MEDS: ATORVASTATIN 20 MG TAB PO SCH (20:35)
--- NOTE | 2021-04-04 20:41 | P.GSCN ---
History of Present Illness Consult date: 04/04/21 History of present illness: 60yo F presented to the ED with complaint of right flank pain along with nausea, vomiting and weakness. On workup was found to have lactic acidosis and hypotension secondary to sepsis related to pyelonephritis. She is being followed by urology and is being treated with ICU management. Initial CT of abdomen and pelvis reported right sided hydronephrosis and hydroureter with perinephric edema that could relate to non-opaque obstructing stone or recently passed stone. Today, the patient became distended and complained of abdominal pain. She began having significant loose stool. On my exam, patient was on bedside commode having a bowel movement and did state that her abdomen felt softer and was no longer painful. CT of the Ap/P was performed today with finding of ileus. Review of Systems All systems: negative Past Medical History Past Medical History: Coronary Artery Disease (CAD), Cancer, CVA/TIA, GERD/Reflux, Hypertension, Myocardial Infarction ([place]) Additional Past Medical History / Comment(s): hx cervical cancer, hypoglycemia, lower back and pelvic pain Last Myocardial Infarction Date:: 07/19/2011 History of Any Multi-Drug Resistant Organisms: None Reported Past Surgical History: Back Surgery, Cholecystectomy, Heart Catheterization With Stent, Hysterectomy, Orthopedic Surgery, Tubal Ligation Additional Past Surgical History / Comment(s): RIGHT WRIST, LAPAROSCOPIC SURGERY, heart stent x2 Past Anesthesia/Blood Transfusion Reactions: No Reported Reaction Date of Last Stent Placement:: 07/19/2011 Smoking Status: Current every day smoker - Past Family History Mother Family Medical History: Cancer Additional Family Medical History / Comment(s): tongue Medications and Allergies Home Medications Medication Instructions Recorded Confirmed Type Aspirin 81 mg PO DAILY 08/22/14 04/02/21 History Cyclobenzaprine [Flexeril] 10 mg PO TID 08/22/14 04/02/21 History Gabapentin 800 mg PO TID 08/22/14 04/02/21 History Ibuprofen [Motrin] 800 mg PO TID PRN 08/22/14 04/02/21 History HYDROcodone/APAP 10-325MG [[place] 1 tab PO TID PRN 09/15/17 04/02/21 History 10-325] ALPRAZolam [Xanax] 0.25 mg PO BID 04/02/21 04/02/21 History Acetaminophen [Tylenol Extra 1,000 mg PO Q6H PRN 04/02/21 04/02/21 History Strength] Atorvastatin [Lipitor] 20 mg PO HS 04/02/21 04/02/21 History Cholecalciferol [Vitamin D3 (25 25 mcg PO DAILY 04/02/21 04/02/21 History Mcg = 1000 Iu)] Citalopram Hydrobromide [CeleXA] 40 mg PO DAILY 04/02/21 04/02/21 History Metoprolol Succinate (ER) [Toprol 12.5 mg PO DAILY 04/02/21 04/02/21 History Xl] Allergies Allergy/AdvReac Type Severity Reaction Status Date / Time adhesive Allergy BLISTERS Verified 04/02/21 22:38 codeine Allergy Unknown Verified 04/02/21 22:38 Iodine and Iodide Containing Allergy Unknown Verified 04/02/21 22:38 Produc morphine Allergy Swelling Verified 04/02/21 22:38 Penicillins Allergy Swelling Verified 04/02/21 22:38 Surgical - Exam Osteopathic Statement: *. No significant issues noted on an osteopathic structural exam other than those noted in the History and Physical/Consult. Vital Signs Temp Pulse Resp BP Pulse Ox 99.3 F 120 H 24 187/110 88 L 04/02/21 19:16 04/02/21 19:16 04/02/21 19:16 04/02/21 19:16 04/02/21 19:16 - General well developed - Eyes normal ocular movement - Neck trachea midline - Respiratory normal respiratory effort - Abdomen Soft, nontender, mild distention, no rebound or guarding, no peritonitis Results - Labs 04/04/21 03:49 04/04/21 03:49 Abnormal Lab Results - Last 24 Hours (Table) 04/04/21 04/04/21 04/04/21 Range/Units 03:49 03:49 17:03 WBC 11.9 H (3.8-10.6) k/uL RBC 3.37 L (3.80-5.40) m/uL Hgb 11.0 L (11.4-16.0) gm/dL MCV 101.5 H (80.0-100.0) fL Plt Count 83 L (150-450) k/uL Neutrophils # (Manual) 10.90 H (1.3-7.7) k/uL Lymphocytes # (Manual) 0.83 L (1.0-4.8) k/uL Metamyelocytes # (Man) 0.12 H (0) k/uL Sodium 135 L (137-145) mmol/L Chloride 111 H (98-107) mmol/L Carbon Dioxide 19 L (22-30) mmol/L BUN 25 H (7-17) mg/dL Creatinine 1.50 H (0.52-1.04) mg/dL Plasma Lactic Acid Shadi 2.2 H* (0.7-2.0) mmol/L Calcium 7.7 L (8.4-10.2) mg/dL Magnesium 2.5 H (1.6-2.3) mg/dL Microbiology - Last 24 Hours (Table) 04/02/21 21:55 Blood Culture Gram Stain - Preliminary Blood Blood Culture - Preliminary Escherichia coli 04/02/21 20:50 Urine Culture - Preliminary Urine,Clean Catch Gram Neg Bacilli 04/02/21 21:40 Blood Culture Gram Stain - Preliminary Blood Blood Culture - Preliminary Gram Neg Bacilli Diabetes panel 04/04/21 Range/Units 03:49 Sodium 135 L (137-145) mmol/L Potassium 4.1 (3.5-5.1) mmol/L Chloride 111 H (98-107) mmol/L Carbon Dioxide 19 L (22-30) mmol/L BUN 25 H (7-17) mg/dL Creatinine 1.50 H (0.52-1.04) mg/dL Glucose 82 (74-99) mg/dL Calcium 7.7 L (8.4-10.2) mg/dL Calcium panel 04/04/21 Range/Units 03:49 Calcium 7.7 L (8.4-10.2) mg/dL Pituitary panel 04/04/21 Range/Units 03:49 Sodium 135 L (137-145) mmol/L Potassium 4.1 (3.5-5.1) mmol/L Chloride 111 H (98-107) mmol/L Carbon Dioxide 19 L (22-30) mmol/L BUN 25 H (7-17) mg/dL Creatinine 1.50 H (0.52-1.04) mg/dL Glucose 82 (74-99) mg/dL Calcium 7.7 L (8.4-10.2) mg/dL Adrenal panel 04/04/21 Range/Units 03:49 Sodium 135 L (137-145) mmol/L Potassium 4.1 (3.5-5.1) mmol/L Chloride 111 H (98-107) mmol/L Carbon Dioxide 19 L (22-30) mmol/L BUN 25 H (7-17) mg/dL Creatinine 1.50 H (0.52-1.04) mg/dL Glucose 82 (74-99) mg/dL Calcium 7.7 L (8.4-10.2) mg/dL Assessment and Plan Plan: 60yo F with pyelonephritis being treated with IV abx and followed by urology. Abdominal distention likely secondary to ileus due to infection. She is having loose stool. Stool specimen is being obtained for evaluation of C Diff per nursing. No plan for surgical intervention at this time. Continue ICU care.
[2021-04-05 04:52] LABS: Basophils % (A) 0 %; Eosinophils # (A) 0.1 k/uL (0-0.7); Eosinophils % (A) 1 %; HCT 33.6 % (34.0-46.0); HGB 10.6 gm/dL (11.4-16.0); Lymphocytes # (A) 0.9 k/uL (1.0-4.8); Lymphocytes % (A) 9 %; MCH 31.6 pg (25.0-35.0); MCHC 31.7 g/dL (31.0-37.0); MCV 99.6 fL (80.0-100.0); Monocytes # (A) 0.2 k/uL (0-1.0); Monocytes % (A) 2 %; Neutrophils # (A) 8.9 k/uL (1.3-7.7); Neutrophils % (A) 87 %; RBC 3.38 m/uL (3.80-5.40); RDW 14.1 % (11.5-15.5); WBC 10.3 k/uL (3.8-10.6)
[2021-04-05 05:06] LABS: Calcium 8.3 mg/dL (8.4-10.2); Potassium 3.2 mmol/L (3.5-5.1)
[2021-04-05 05:07] LABS: Platelet Count 66 k/uL (150-450)
[2021-04-05] MEDS ORDERED: Potassium Replacement Protocol 1 EACH MISC MISCELLANE PRN (05:07)
[2021-04-05] MEDS: SODIUM CHLORIDE 0.9% 1,000 ML IV SCH ×3 (05:12→20:45)
[2021-04-05] MEDS: POTASSIUM CHLORIDE ER 20 MEQ TAB.ER PO SCH ×2 (05:22→06:14)
[2021-04-05] MEDS: HYDROcodone/APAP 10-325MG 1 EACH TAB PO PRN (05:37)
[2021-04-05] MEDS: IPRATROPIUM-ALBUTEROL 3 ML NEB INHALATION SCH ×3 (05:41→21:20)
--- NOTE | 2021-04-05 06:16 | CONS ---
CONSULTATION DATE OF SERVICE: 04/04/2021 REASON FOR CONSULTATION: Bacteremia. HISTORY OF PRESENT ILLNESS: The patient is a 60-year-old female presenting to the ER at [facility] 2 days ago for evaluation of not feeling well. The patient started having pain to the right flank area the morning of presentation to hospital. The patient describes the pain to be more of a sharp in nature, almost 7 to 8/10 and no radiation. The patient complaining of nausea and vomiting throughout the day but denies having any diarrhea. Patient was feeling weak and short of breath. With these symptoms, the patient presented to the hospital. On arrival to the ER, the patient did have a low-grade fever of 100.3 and subsequently, spiked a fever of 101.8 and did have fever of 102 degrees Fahrenheit this evening. The patient was hypotensive. The patient did have a CT of abdomen and pelvis with evidence of right-sided mild hydronephrosis and pyelonephritis. No acute abnormality. The patient did have white count of 20,000 on admission. White count is down to 11.9 today. Also had elevated BUN and creatinine, which are trending down and mildly elevated liver enzymes. The patient did have a positive UA. Blood culture now showing E coli which is sensitive pathogen. Urine showing Gram-negative bacilli. The patient has been treated with Rocephin 2 grams daily. Infectious Disease was consulted for further management of antibiotic therapy. The patient was complaining of more abdominal pain today with new fever. He did have a CT of abdomen and pelvis with evidence of ileus. REVIEW OF SYSTEMS: Positive points have been mentioned in HPI. Rest of systems are negative. PAST MEDICAL HISTORY: Coronary artery disease, CVA, TIA, SVT, gastroesophageal reflux disease, hypertension, [place], cervical cancer. PAST SURGICAL HISTORY: Back surgery, cholecystectomy, PTCA with stent placement, hysterectomy, tubal ligation, right knee surgery. SOCIAL HISTORY: Current everyday smoker. No drinking or drug use. FAMILY HISTORY: Mother with history of colon cancer. ALLERGIES: CODEINE, IODINE, MORPHINE, PENICILLIN. Has tolerated cephalosporins without any problem. MEDICATIONS: The patient is currently on Tylenol, [place], DuoNeb, Xanax, Lipitor, Rocephin 2 grams daily, vitamin D3, Neurontin, Toprol-XL, magnesium and potassium protocol, Narcan, nicotine patch, Protonix, and IV fluid. PHYSICAL EXAMINATION: VITAL SIGNS: Blood pressure is 84/62 with a pulse of 89, temperature of 192, she is 95% on 5 L nasal cannula. GENERAL DESCRIPTION: The patient is a middle-aged female lying in bed in no distress. No tachypnea or accessory muscles of respiration use. HEENT: Examination shows slight pallor, no scleral icterus. Oral mucous membrane is dry. NECK: Trachea central, no thyromegaly. LUNGS: Unlabored breathing, decreased breath sounds at the bases. No wheeze or crackle. HEART: S1-S2, regular rate and rhythm. ABDOMEN: Soft, mildly tender. No guarding or rigidity. EXTREMITIES: No edema of the feet. SKIN: No rash or mass palpable. NEUROLOGICAL: Patient is awake, alert, oriented times three. Mood and affect normal. LABS: Hemoglobin is 11.2, white count 9.9, admission white count was 20,000. BUN of 25, creatinine 1.50. The patient's admission creatinine was 2.25, lactic is 2.3, repeat is 1.2. Liver enzymes are mildly elevated. Blood with E coli. Urine showing Gram- negative bacilli. DIAGNOSTIC IMPRESSION: 1. Admitted patient to the hospital with sepsis 2 days ago in this patient who did have a fever, tachycardia, elevated white count, right flank pain. Source is likely right-sided pyelonephritis with CT scan suggestive of mild hydronephrosis , however, ultrasound has been negative for any hydronephrosis. 2. The patient has multiple antibiotic allergies that will limit the number of antibiotics safe to use. PLAN: 1. Rocephin 2 gram daily to continue. 2. We will check a blood culture in the morning to document clearance of her bacteremia. 3. We will follow. 4. Gentle IV fluid. 5. We will follow on clinical condition and further adjust medication if needed. Thank you for this consultation. Will follow this patient along with you. MMODL / IJN: [id number] /
[2021-04-05] MEDS: ALPRAZolam 0.25 MG TAB PO SCH ×2 (07:56→20:44)
[2021-04-05] MEDS: METOPROLOL SUCCINATE (ER) 25 MG TAB.ER.24H PO SCH (07:56)
[2021-04-05] MEDS: GABAPENTIN 400 MG CAP PO SCH ×3 (07:56→20:37)
[2021-04-05] MEDS: CHOLECALCIFEROL 25 MCG (1000 IU) TABLET PO SCH (07:56)
[2021-04-05] MEDS: NICOTINE 14MG/24HR PATCH TRANSDERM SCH (07:57)
[2021-04-05] MEDS: PANTOPRAZOLE 40 MG/10 ML VIAL IVP SCH (07:57)
--- NOTE | 2021-04-05 09:01 | P.PN ---
Subjective Progress Note Date: 04/05/21 Principal diagnosis: Urosepsis/septic shock. Pulmonary consult dated 04/03/2021. This is a 68-year-old female, who presents to the emergency department, not feeling well. She apparently started off with right flank pain the morning of admission to the emergency department. Symptoms apparently progress. She was also having nausea and vomiting. She was feeling very weak. She apparently also was complaining of shortness of breath. No chest pain headache or dizziness. The patient denied any dysuria, hematuria, or foul-smelling urine. She had no fever or chills or other complaints. I was called by the ER physician who wanted to admit the patient to the intensive care unit for urinary tract infection/urosepsis, with hydronephrosis. Urology was notified. She apparently has a history of CAD, CVA, GERD, hypertension, myocardial infarction, cervical cancer, and low back pain. White count was 20.9, hemoglobin 13.4, hematocrit 39.3, platelet count 160,000. Sodium 135, potassium 3.5, chlorides 107, CO2 18, anion gap 10, BUN 27, creatinine 2.25. Lactic acid was initially 2.1 and then increased to 3.0. AST 115 ALT 75. Coronavirus testing was negative. Urine was turbid, with 3+ protein, large amount of blood, large positive leukocyte esterase, greater than 182 RBCs and WBCs, many white blood cell clumps. Chest x-ray revealed some interstitial infiltrates and atelectasis at the lung bases. A CT of the abdomen and pelvis revealed some interstitial infiltrates and emphysematous changes at the lung bases bilaterally, without any suspicious pulmonary masses. There is right-sided hydronephrosis and hydroureter with perinephric edema. No stone noted. Progress note dated 04/04/2021. 68-year-old female with a history of urinary tract infection/urosepsis, pyelonephritis, with hydronephrosis, and E. coli septic shock. Currently, patient's doing better. Her blood pressure is a little soft last night, so we gave her some additional fluids. She never required vasopressor. She is on 5 L nasal cannula. She's getting saline at 130 mL an hour. Her blood and urine was positive pressure recheck E. coli. She's currently on IV Rocephin. I read the note from the urologist, who does not anticipate any surgical intervention at this time. White count 11.9, hemoglobin 11, hematocrit 34.2, platelet count 83,000. Sodium 135, potassium 4.1, chlorides 111, CO2 19, anion gap is 5, BUN 25, creatinine 1.50. Chest x-ray shows nothing acute. A flatplate of the abdomen was done because of abdominal distention. Progress note dated 04/05/2021. 68-year-old female with history of Escherichia coli urinary tract infection/urosepsis, with hydronephrosis. Yesterday, the patient was a bit confused. She was complaining of abdominal distention and pain. She was seen by surgery. They are thinking that she probably has an ileus. The patient never required vasopressor. Currently, her breathing is much improved. She is on 5 L nasal cannula. She's getting saline at 30 mL an hour. She would like her Stein catheter removed. We'll run that past urology. She's currently on IV Rocephin. White count 10.3, heme him 10.6, hematocrit 33.6, platelet count of 66,000. Sodium 136, potassium 3.2, chlorides 110, CO2 20, anion gap 6. BUN is 21, creatinine 1.21. Abdomen and pelvic CT as well as abdominal and bladder ultrasound are reviewed. Objective - Vital Signs Vital signs: Vital Signs Temp 98.2 F 04/05/21 04:00 Pulse 100 04/05/21 07:00 Resp 21 04/05/21 07:00 BP 120/83 04/05/21 07:00 Pulse Ox 95 04/05/21 07:00 Intake & Output 04/04/21 04/05/21 04/05/21 18:59 06:59 18:59 Intake Total 890 330 30 Output Total 3725 1280 60 Balance -2835 -950 -30 Weight 69.9 kg Intake: IV 890 330 30 .9 @ 130 mL/hr 890 330 30 Output: Urine 3725 1280 60 Other: Voiding Method Indwelling Catheter Indwelling Catheter - Exam No acute distress, oriented 3. Currently on 5 L nasal cannula. No respiratory distress, use of accessory muscles, or conversational dyspnea. Much more awake and appropriate today. HEENT examination is grossly unremarkable. Neck supple. Full range of motion. No adenopathy thyromegaly or neck vein distention. Cardiovascular examination reveals regular rhythm rate. S1-S2 normal. No S3 or S4. No discernible murmur noted. Heart rate 100. Lungs reveal mild scattered rhonchi. No wheezes or crackles. Breath sounds equal bilaterally. Saturation 95% on 4 L. Abdomen mildly distended and tender. Bowel sounds are noted. No masses. Extremities are intact. No cyanosis clubbing or edema. Skin is without rash or lesion. Neurologic examination is brief but nonfocal. - Labs CBC & Chem 7: 04/05/21 04:12 04/05/21 04:12 Labs: Abnormal Lab Results - Last 24 Hours (Table) 04/04/21 04/05/21 04/05/21 Range/Units 17:03 04:12 04:12 RBC 3.38 L (3.80-5.40) m/uL Hgb 10.6 L (11.4-16.0) gm/dL Hct 33.6 L (34.0-46.0) % Plt Count 66 L (150-450) k/uL Neutrophils # 8.9 H (1.3-7.7) k/uL Lymphocytes # 0.9 L (1.0-4.8) k/uL Sodium 136 L (137-145) mmol/L Potassium 3.2 L (3.5-5.1) mmol/L Chloride 110 H (98-107) mmol/L Carbon Dioxide 20 L (22-30) mmol/L BUN 21 H (7-17) mg/dL Creatinine 1.21 H (0.52-1.04) mg/dL Plasma Lactic Acid Shadi 2.2 H* (0.7-2.0) mmol/L Calcium 8.3 L (8.4-10.2) mg/dL Microbiology - Last 24 Hours (Table) 04/02/21 21:40 Blood Culture Gram Stain - Final Blood Blood Culture - Final Escherichia coli 04/02/21 21:55 Blood Culture Gram Stain - Final Blood Blood Culture - Final Escherichia coli 04/02/21 20:50 Urine Culture - Final Urine,Clean Catch Escherichia coli Assessment and Plan Assessment: Acute pyelonephritis with urosepsis/septic shock and evidence of hydronephrosis and hydroureter without obvious stone. Escherichia coli urosepsis/septic shock with bacteremia. Bibasilar atelectasis, doubt pneumonia. History of CAD, status post stent placement. History of CVA. History of gastroesophageal reflux disease. History of hypertension. History of myocardial infarction. History of cervical cancer. History of ongoing tobacco use with nicotine addiction. Plan: Plan dated 04/03/2021. Currently, the patient's on 5 L nasal cannula, is receiving saline at 130 mL an hour. She is also receiving ceftriaxone. No pressor at this time. I will add some updrafts. She is a chronic tobacco user. Changes of the lung bases likely reflect atelectasis rather than pneumonia. We will continue to follow. Prognosis is guarded. Urology has been notified. Plan dated 04/04/2021. The patient's O2 is been turned on the 4 L. Saturations are 95%. She remains on Rocephin. Urine and blood for positive for Escherichia coli. The patient is feeling better today. Of note, the patient does have some abdominal distention and tenderness. A flat plate of the abdomen was ordered. Labs are reviewed. Chest x-ray shows chronic changes without anything acute. Urology is not planning any surgical intervention at this time. Plan dated 04/05/2021. Currently, the patient's on 5 L nasal cannula. She's getting saline at 30 mL an hour. She is much more awake and alert. She remains on Rocephin for Escherichia coli infection. The patient does not want to be transferred to [facility]. Apparently that was what the family wanted yesterday. We will continue to follow. Prognosis is guarded. Generally speaking, she is doing much better today. Time with Patient: Less than 30
[2021-04-05] MEDS: NOREPINEPHRINE 4 MG in SODIUM CHLORIDE 0.9% 250 ML IV SCH (12:03)
[2021-04-05] MEDS: ACETAMINOPHEN TAB 325 MG TAB PO PRN ×2 (12:09→19:05)
--- NOTE | 2021-04-05 12:54 | P.PN ---
Subjective Progress Note Date: 04/05/21 This is 60-year-old female with a past medical history of coronary artery disease, CVA, GERD, hypertension, [place], and nicotine dependence, presented to the ER with complaints of right flank pain radiating to the groin that started earlier in the a.m. accompanied by nausea, vomiting, weakness and shortness of breath. Denies fever or chills. Denies any chest pain, palpitations. Denies any lightheadedness, dizziness or focal deficits. Hypertensive, tachycardic, febrile with borderline hypoxia on admission.WBC 20.9, hemoglobin 11.4, platelets 117. Lactic acid 3.8, 2.1, 3.0. Became Hypotensive, received a total of 4 L of IV fluids. Currently lactic acid decreased to 1.8. requiring 5 L nasal cannula and maintaining O2 sats in the 90s. Chest x-ray reported mild interstitial infiltrates, subsegmental atelectasis at bilateral bases similar to prior exam. CT of abdomen and pelvis reported right sided hydronephrosis and hydroureter with perinephric edema that could relate to non-opaque obstructing stone or recently passed stone. Common bile duct large, measuring up to 13 mm. sodium 135, potassium 4.4 BUN 30, creatinine 1.93. Magnesium 1.4, repeat level pending. Elevated LFTs, improving .UA reporting greater than 182 WBCs, large leukocytes, negative nitrate. Urine and blood cultures obtained .Maintained on IV fluids and IV antibiotics. Evaluated by urology, with no surgical intervention recommended at this time. IV fluids and IV antibiotics of ceftriaxone initiated 04/04/2021 maintained on IV fluid resuscitation of 130 MLS per hour, Rocephin. Positive bowel movement yesterday. Complaining of persistent right flank pain, radiating to mid abdomen. Renal function improving, creatinine down to 1.5. Currently afebrile, T-max 100.1. preliminary blood cultures reporting E. coli, p reliminary urine culture reporting gram-negative bacilli. WBC decreased to 11.9. Mild tachycardia.Denies chest pain, palpitations or shortness of breath. Denies lightheadedness, dizziness or focal deficits. Maintaining O2 sats in the 90s on 5 L nasal cannula. Chest x-ray reporting chronic perforation while changes without acute pulmonary process. Hemoglobin 11, platelets 83. 04/05/2021 Patient had been receiving fluid resuscitation, possible mild fluid overload, IV fluids decreased, received a dose of Lasix IV push, diuresed well with 24-hour I&O reflecting a negative fluid balance .requesting Stein catheter be discontinued, defer to urology. Evaluated by surgery regarding worsening abdominal pain/distention, radiology studies reviewed,attributed to an ileus. Urine with E. coli ,Bacteremic with E. coli , evaluated by infectious disease. Repeat blood culture in progress. Continues on IV antibiotics. T-max of 102.2, WBC within normal limits. Hemoglobin 10.6, Platelets continue trending down ,66. Potassium 3.2, creatinine down to 1.21. No further diarrhea. Objective - Vital Signs Vital signs: Vital Signs Temp 99.2 F 04/05/21 12:00 Pulse 110 H 04/05/21 12:00 Resp 30 H 04/05/21 12:00 BP 118/85 04/05/21 12:00 Pulse Ox 96 04/05/21 12:00 Intake & Output 04/04/21 04/05/21 04/05/21 18:59 06:59 18:59 Intake Total 890 330 180 Output Total 3725 1280 410 Balance -6935 -950 -230 Weight 69.9 kg Intake: IV 890 330 180 .9 @ 130 mL/hr 890 330 180 Output: Urine 3725 1280 410 Other: Voiding Method Indwelling Catheter Indwelling Catheter Indwelling Catheter - Exam PHYSICAL EXAM: VITAL SIGNS: As above GENERAL: Sitting up in bed in no acute distress HEENT: Conjunctivae normal. eyes normal. NECK: No JVD. No thyroid enlargement. No LNs CARDIOVASCULAR: S1, S2 regular.. No murmur, tachycardic RESPIRATION: Breath sounds diminished in the bases. Scattered rhonchi, no crackles. ABDOMEN: Soft, distended,right flank tenderness,No guarding. Positive bowel sounds. LEGS: No edema. no swelling PSYCHIATRY: Alert and oriented X3, mood and affect normal. NERVOUS SYSTEM: Cranial N 2-12 grossly normal. Moves all 4 limbs. Diffuse weakness,No focal deficits. Strength and sensation grossly intact. Skin: Warm and dry, no rash Microbiology 04/02/21 21:40 Blood Blood Culture Gram Stain - Final 04/02/21 21:40 Blood Blood Culture - Final Escherichia coli 04/02/21 21:55 Blood Blood Culture Gram Stain - Final 04/02/21 21:55 Blood Blood Culture - Final Escherichia coli 04/02/21 20:50 Urine,Clean Catch Urine Culture - Final Escherichia coli 04/02/21 21:40 Blood Blood Culture - Final 04/02/21 21:55 Blood Blood Culture - Final - Labs CBC & Chem 7: 04/05/21 04:12 04/05/21 04:12 Labs: Abnormal Lab Results - Last 24 Hours (Table) 04/04/21 04/05/21 04/05/21 Range/Units 17:03 04:12 04:12 RBC 3.38 L (3.80-5.40) m/uL Hgb 10.6 L (11.4-16.0) gm/dL Hct 33.6 L (34.0-46.0) % Plt Count 66 L (150-450) k/uL Neutrophils # 8.9 H (1.3-7.7) k/uL Lymphocytes # 0.9 L (1.0-4.8) k/uL Sodium 136 L (137-145) mmol/L Potassium 3.2 L (3.5-5.1) mmol/L Chloride 110 H (98-107) mmol/L Carbon Dioxide 20 L (22-30) mmol/L BUN 21 H (7-17) mg/dL Creatinine 1.21 H (0.52-1.04) mg/dL Plasma Lactic Acid Shadi 2.2 H* (0.7-2.0) mmol/L Calcium 8.3 L (8.4-10.2) mg/dL Microbiology - Last 24 Hours (Table) 04/02/21 21:40 Blood Culture Gram Stain - Final Blood Blood Culture - Final Escherichia coli 04/02/21 21:55 Blood Culture Gram Stain - Final Blood Blood Culture - Final Escherichia coli 04/02/21 20:50 Urine Culture - Final Urine,Clean Catch Escherichia coli Assessment and Plan Assessment: Sepsis with Septic shock secondary to acute right pyelonephritis, right hydroureteronephrosis -etiology unclear, bacteremia and UTI, present on admission, Acute UTI with E. coli Bacteremia with E. coli Possible ileus Acute renal failure, Bibasilar atelectasis, Thrombocytopenia of unclear etiology. CAD, history of [place] Gastroesophageal reflux disease History of CVA History of cervical cancer Anxiety Depression Ongoing nicotine dependence Plan: Continue on current medication regime ,monitoring and symptomatic treatment. Hematology consulted regarding thrombocytopenia. Antibiotics as per ID. Close monitoring of renal function, hemoglobin, platelets, electrolytes with repeat labs ordered for a.m. Prognosis guarded given multiple complex medical issues. The impression and plan of care has been dictated as directed. : I performed a history and examination of this patient, discussed the same with the dictator. I agree with the dictator's note ,documented as a scribe. Any additional findings or plans will be noted.
--- NOTE | 2021-04-05 17:59 | PN ---
PROGRESS NOTE DATE OF SERVICE: 04/05/2021 REASON FOR FOLLOWUP: E coli UTI and bacteremia. INTERVAL HISTORY: The patient is afebrile. The patient is breathing comfortably. The patient denies having any chest pain, shortness of breath or cough. No nausea, no abdominal pain, no diarrhea. PHYSICAL EXAMINATION: Blood pressure 137/70, pulse of 90, temperature is 99.2. She is 99% on 2 L nasal cannula. General description is a middle-aged female up in the in no distress. Respiratory system: Unlabored breathing. Decreased breath sounds, no wheeze. Heart S1, S2. Regular rate and rhythm. Abdomen soft, no tenderness. LABS: Hemoglobin is 10.1, white count 10.3, BUN of 21, creatinine is 1.21. DIAGNOSTIC IMPRESSION AND PLAN: Patient with an E coli UTI with secondary bacteremia, sensitive pathogen. Patient is covered with Zosyn, to continue while monitor clinical course closely. Continue supportive care. MMODL / IJN: [id number] /
--- NOTE | 2021-04-05 18:46 | P.PN ---
Subjective Progress Note Date: 04/05/21 Patient seen and examined at bedside. Resting comfortably with family at bedside. Denies any significant abdominal pain. No bowel movement today. Denies nausea or vomiting. Objective - Vital Signs Vital signs: Vital Signs Temp 98 F 04/05/21 16:00 Pulse 96 04/05/21 18:00 Resp 25 H 04/05/21 18:00 BP 115/83 04/05/21 18:00 Pulse Ox 94 L 04/05/21 18:00 Intake & Output 04/04/21 04/05/21 04/05/21 18:59 06:59 18:59 Intake Total 890 330 330 Output Total 3725 1280 715 Balance -4243 -794 -530 Weight 69.9 kg Intake: IV 890 330 330 .9 @ 130 mL/hr 890 330 330 Output: Urine 3725 1280 715 Other: Voiding Method Indwelling Catheter Indwelling Catheter Indwelling Catheter - Constitutional General appearance: Present: cooperative, no acute distress - Gastrointestinal Gastrointestinal Comment(s): soft, nontender, mild distention, no rebound, no guarding - Labs CBC & Chem 7: 04/05/21 04:12 04/05/21 04:12 Labs: Abnormal Lab Results - Last 24 Hours (Table) 04/05/21 04/05/21 Range/Units 04:12 04:12 RBC 3.38 L (3.80-5.40) m/uL Hgb 10.6 L (11.4-16.0) gm/dL Hct 33.6 L (34.0-46.0) % Plt Count 66 L (150-450) k/uL Neutrophils # 8.9 H (1.3-7.7) k/uL Lymphocytes # 0.9 L (1.0-4.8) k/uL Sodium 136 L (137-145) mmol/L Potassium 3.2 L (3.5-5.1) mmol/L Chloride 110 H (98-107) mmol/L Carbon Dioxide 20 L (22-30) mmol/L BUN 21 H (7-17) mg/dL Creatinine 1.21 H (0.52-1.04) mg/dL Calcium 8.3 L (8.4-10.2) mg/dL Microbiology - Last 24 Hours (Table) 04/02/21 21:40 Blood Culture Gram Stain - Final Blood Blood Culture - Final Escherichia coli 04/02/21 21:55 Blood Culture Gram Stain - Final Blood Blood Culture - Final Escherichia coli 04/02/21 20:50 Urine Culture - Final Urine,Clean Catch Escherichia coli Assessment and Plan Plan: 60yo F with pyelonephritis and ileus - Ileus appears to be improving - Denies abdominal pain. - No acute surgical intervention planned at this point, will continue to monitor
[2021-04-05 19:03] LABS: INR 0.9 (<1.2); Partial Thromboplastin Time 30.2 sec (22.0-30.0); Prothrombin Time 10.2 sec (9.0-12.0)
--- NOTE | 2021-04-05 19:04 | P.CONS ---
History of Present Illness - Reason for Consult Consult date: 04/05/21 thrombocytopenia Requesting physician: Marta Mayfield - Chief Complaint sepsis, thrombocytopenia - History of Present Illness Ms. Cummings is a very pleasant 60-year-old female who we've been asked to see regards to progressive thrombocytopenia. Patient was admitted 3 days ago with abdominal pain, nausea, vomiting, weakness and right flank pain. She was found to have hydronephrosis on imaging, UTI and ecoli bactremia. She has been treated with antibiotics, follow-up imaging showed resolution of the hydronephrosis, questionable air at the right kidney and air in the bladder maybe some possible upper small bowel ileus, RLL pneumonia and signs of emphysem a. Her platelets were normal on admission. They have decreased each day and today are 66,000. Her creatinine was greater than 2 on admission, it is improved to 1.2 today. Her hemoglobin was normal on admit, it is 10.6 today. I reviewed the chart thoroughly and reviewed again with RN, no documentation of heparin or low molecular weight heparin being administered this admission. Patient has not had a hospitalization in the last 30 days. Patient denies any history of bleeding or clotting disorders, she is never been told she has a blood disorder, she denies epistaxis, hemoptysis, unusual bruising, petechiae, no blood in the urine or the stool, acute changes in bowel habits, no history of excessive EtOH, cirrhosis, liver disease. She does have bruises on the forearms and known areas of trauma. Her presenting symptoms have improved. She is mildly confused. History of Specialty Person malignancy, no chemotherapy. she has a history of cardiac stents, denies any previous or current anticoagulation. Review of Systems 14 point review of systems is negative except as stated in HPI Past Medical History Past Medical History: Coronary Artery Disease (CAD), Cancer, CVA/TIA, GERD/Reflux, Hypertension, Myocardial Infarction ([place]) Additional Past Medical History / Comment(s): hx cervical cancer, hypoglycemia, lower back and pelvic pain Last Myocardial Infarction Date:: 07/19/2011 History of Any Multi-Drug Resistant Organisms: None Reported Past Surgical History: Back Surgery, Cholecystectomy, Heart Catheterization With Stent, Hysterectomy, Orthopedic Surgery, Tubal Ligation Additional Past Surgical History / Comment(s): RIGHT WRIST, LAPAROSCOPIC SURGERY, heart stent x2 Past Anesthesia/Blood Transfusion Reactions: No Reported Reaction Date of Last Stent Placement:: 07/19/2011 Smoking Status: Current every day smoker Past Alcohol Use History: None Reported Past Drug Use History: None Reported - Past Family History Mother Family Medical History: Cancer Additional Family Medical History / Comment(s): tongue Medications and Allergies Home Medications Medication Instructions Recorded Confirmed Type Aspirin 81 mg PO DAILY 08/22/14 04/02/21 History Cyclobenzaprine [Flexeril] 10 mg PO TID 08/22/14 04/02/21 History Gabapentin 800 mg PO TID 08/22/14 04/02/21 History Ibuprofen [Motrin] 800 mg PO TID PRN 08/22/14 04/02/21 History HYDROcodone/APAP 10-325MG [[place] 1 tab PO TID PRN 09/15/17 04/02/21 History 10-325] ALPRAZolam [Xanax] 0.25 mg PO BID 04/02/21 04/02/21 History Acetaminophen [Tylenol Extra 1,000 mg PO Q6H PRN 04/02/21 04/02/21 History Strength] Atorvastatin [Lipitor] 20 mg PO HS 04/02/21 04/02/21 History Cholecalciferol [Vitamin D3 (25 25 mcg PO DAILY 04/02/21 04/02/21 History Mcg = 1000 Iu)] Citalopram Hydrobromide [CeleXA] 40 mg PO DAILY 04/02/21 04/02/21 History Metoprolol Succinate (ER) [Toprol 12.5 mg PO DAILY 04/02/21 04/02/21 History Xl] Allergies Allergy/AdvReac Type Severity Reaction Status Date / Time adhesive Allergy BLISTERS Verified 04/02/21 22:38 codeine Allergy Unknown Verified 04/02/21 22:38 Iodine and Iodide Containing Allergy Unknown Verified 04/02/21 22:38 Produc morphine Allergy Swelling Verified 04/02/21 22:38 Penicillins Allergy Swelling Verified 04/02/21 22:38 Physical Exam Vitals: Vital Signs Temp Pulse Resp BP Pulse Ox 04/05/21 18:00 96 25 H 115/83 94 L 04/05/21 17:00 89 19 115/83 98 04/05/21 16:00 98 F 87 16 115/83 97 04/05/21 15:00 96 20 93/71 95 04/05/21 14:08 91 04/05/21 14:00 90 14 107/70 99 04/05/21 13:57 92 04/05/21 13:00 103 H 18 122/79 95 04/05/21 12:00 99.2 F 110 H 30 H 118/85 96 04/05/21 11:00 98 16 131/90 96 04/05/21 10:00 99 18 122/81 95 04/05/21 09:00 96 20 103/68 97 04/05/21 08:00 98.4 F 101 H 13 108/73 95 04/05/21 07:00 100 21 120/83 95 04/05/21 06:00 105 H 21 132/83 94 L 04/05/21 05:49 102 H 04/05/21 05:41 97 04/05/21 05:00 101 H 18 120/78 94 L 04/05/21 04:00 98.2 F 93 16 117/79 97 04/05/21 03:00 91 16 122/79 98 04/05/21 02:00 87 17 106/76 97 04/05/21 01:00 84 14 103/67 98 04/05/21 00:11 87 13 114/71 97 04/05/21 00:00 97.8 F 98 15 114/71 93 L 04/04/21 23:00 89 14 87/61 95 04/04/21 22:24 92 04/04/21 22:04 89 95 04/04/21 22:00 89 15 84/62 95 04/04/21 21:00 95 20 85/63 93 L 04/04/21 20:00 98.1 F 101 H 19 97/63 94 L 04/04/21 19:00 99 18 113/78 96 Intake and Output 04/05/21 04/05/21 04/05/21 06:59 14:59 22:59 Intake Total 240 270 60 Output Total 880 585 130 Balance -979 -315 -70 Intake: IV 240 270 60 .9 @ 130 mL/hr 240 270 60 Output: Urine 880 585 130 Other: Voiding Method Indwelling Catheter Indwelling Catheter Indwelling Catheter Weight 69.9 kg - Constitutional General appearance: average body habitus, cooperative, no acute distress - EENT no wet purpura Eyes: anicteric sclerae, EOMI ENT: hearing grossly normal, normal oropharynx - Neck Neck: no lymphadenopathy - Respiratory Respiratory: bilateral: CTA - Cardiovascular Rhythm: regular Heart sounds: normal: S1, S2 Abnormal Heart Sounds: no systolic murmur, no diastolic murmur, no rub, no S3 Gallop, no S4 Gallop, no click, no other leg Peripheral Edema: bilateral: None - Gastrointestinal fullness in the upper quadrants, no rebound General gastrointestinal: distended, normal bowel sounds, soft - Integumentary no petechiae on the chest, abdomen, legs. She does have a few bruises on the forearms, no hematomas. No blood around IV insertion site, no gross blood visible in Stein - Neurologic Neurologic: CNII-XII intact - Musculoskeletal Musculoskeletal: strength equal bilaterally - Psychiatric Psychiatric: A&O x's 3, appropriate affect, intact judgment & insight Results CBC & Chem 7: 04/05/21 04:12 04/05/21 04:12 Labs: Abnormal Lab Results - Last 24 Hours (Table) 04/05/21 04/05/21 Range/Units 04:12 04:12 RBC 3.38 L (3.80-5.40) m/uL Hgb 10.6 L (11.4-16.0) gm/dL Hct 33.6 L (34.0-46.0) % Plt Count 66 L (150-450) k/uL Neutrophils # 8.9 H (1.3-7.7) k/uL Lymphocytes # 0.9 L (1.0-4.8) k/uL Sodium 136 L (137-145) mmol/L Potassium 3.2 L (3.5-5.1) mmol/L Chloride 110 H (98-107) mmol/L Carbon Dioxide 20 L (22-30) mmol/L BUN 21 H (7-17) mg/dL Creatinine 1.21 H (0.52-1.04) mg/dL Calcium 8.3 L (8.4-10.2) mg/dL Microbiology - Last 24 Hours (Table) 04/02/21 21:40 Blood Culture Gram Stain - Final Blood Blood Culture - Final Escherichia coli 04/02/21 21:55 Blood Culture Gram Stain - Final Blood Blood Culture - Final Escherichia coli 04/02/21 20:50 Urine Culture - Final Urine,Clean Catch Escherichia coli CT scan - abdomen: report reviewed CT scan - pelvis: report reviewed Assessment and Plan (1) Thrombocytopenia Current Visit: Yes Status: Acute Priority: High Code(s): D69.6 - THROMBOCYTOPENIA, UNSPECIFIED SNOMED Code(s): 032584262 (2) Normocytic normochromic anemia Current Visit: Yes Status: Acute Priority: High Code(s): D64.9 - ANEMIA, UNSPECIFIED SNOMED Code(s): 69315625 Plan: Patient has not received heparin or low molecular weight heparin since admission (she has had on SCDs) not necessary to check for HIT antibody. Will check DIC labs. TTP HUS less likely as renal function is improving. Checking iron studies No current signs or symptoms of bleeding so, no transfusion at this time. Transfuse for platelets less than 10,000 or if symptomatic. CBC daily Suspect most likely that patient's drop in count is likely secondary to severe sepsis, quite possibly antibiotics. But, we will see if her counts stabilize if they begin to improve spontaneously as sepsis is treated
--- NOTE | 2021-04-05 19:44 | P.PN ---
Progress Note - Text Progress Note Date: 04/05/21 The patient is feeling better today. Specifically, her right-sided abdominal pain is improved. She is currently afebrile. Her tachycardia is improved. Her WBC count has normalized, and her serum creatinine level continues to improve. Urine and blood cultures have both shown E. coli. The repeat computed tomography scan yesterday showed no evidence of hydronephrosis. There was noted within the bladder, which may be due to the presence of a Stein catheter. However, unless she has vesicoureteral reflux, this cannot explain air seen within the right intrarenal collecting system, and it is thus my opinion that this is due to a gas forming organism. She requires no intervention at this time.
[2021-04-05] MEDS: ATORVASTATIN 20 MG TAB PO SCH (20:44)
[2021-04-06] MEDS: IPRATROPIUM-ALBUTEROL 3 ML NEB INHALATION PRN ×2 (03:27→13:37)
[2021-04-06] MEDS: SODIUM CHLORIDE 0.9% 1,000 ML IV SCH ×2 (04:22→11:04)
[2021-04-06 05:41] LABS: HCT 31.5 % (34.0-46.0); MCH 34.3 pg (25.0-35.0); MCV 98.2 fL (80.0-100.0); Mean Platelet Volume 9.2; RDW 13.6 % (11.5-15.5); WBC 11.2 k/uL (3.8-10.6)
--- NOTE | 2021-04-06 05:58 | P.PN ---
Subjective Progress Note Date: 04/06/21 Principal diagnosis: Urosepsis/septic shock. Pulmonary consult dated 04/03/2021. This is a 68-year-old female, who presents to the emergency department, not feeling well. She apparently started off with right flank pain the morning of admission to the emergency department. Symptoms apparently progress. She was also having nausea and vomiting. She was feeling very weak. She apparently also was complaining of shortness of breath. No chest pain headache or dizziness. The patient denied any dysuria, hematuria, or foul-smelling urine. She had no fever or chills or other complaints. I was called by the ER physician who wanted to admit the patient to the intensive care unit for urinary tract infection/urosepsis, with hydronephrosis. Urology was notified. She apparently has a history of CAD, CVA, GERD, hypertension, myocardial infarction, cervical cancer, and low back pain. White count was 20.9, hemoglobin 13.4, hematocrit 39.3, platelet count 160,000. Sodium 135, potassium 3.5, chlorides 107, CO2 18, anion gap 10, BUN 27, creatinine 2.25. Lactic acid was initially 2.1 and then increased to 3.0. AST 115 ALT 75. Coronavirus testing was negative. Urine was turbid, with 3+ protein, large amount of blood, large positive leukocyte esterase, greater than 182 RBCs and WBCs, many white blood cell clumps. Chest x-ray revealed some interstitial infiltrates and atelectasis at the lung bases. A CT of the abdomen and pelvis revealed some interstitial infiltrates and emphysematous changes at the lung bases bilaterally, without any suspicious pulmonary masses. There is right-sided hydronephrosis and hydroureter with perinephric edema. No stone noted. Progress note dated 04/04/2021. 68-year-old female with a history of urinary tract infection/urosepsis, pyelonephritis, with hydronephrosis, and E. coli septic shock. Currently, patient's doing better. Her blood pressure is a little soft last night, so we gave her some additional fluids. She never required vasopressor. She is on 5 L nasal cannula. She's getting saline at 130 mL an hour. Her blood and urine was positive pressure recheck E. coli. She's currently on IV Rocephin. I read the note from the urologist, who does not anticipate any surgical intervention at this time. White count 11.9, hemoglobin 11, hematocrit 34.2, platelet count 83,000. Sodium 135, potassium 4.1, chlorides 111, CO2 19, anion gap is 5, BUN 25, creatinine 1.50. Chest x-ray shows nothing acute. A flatplate of the abdomen was done because of abdominal distention. Progress note dated 04/05/2021. 68-year-old female with history of Escherichia coli urinary tract infection/urosepsis, with hydronephrosis. Yesterday, the patient was a bit confused. She was complaining of abdominal distention and pain. She was seen by surgery. They are thinking that she probably has an ileus. The patient never required vasopressor. Currently, her breathing is much improved. She is on 5 L nasal cannula. She's getting saline at 30 mL an hour. She would like her Stein catheter removed. We'll run that past urology. She's currently on IV Rocephin. White count 10.3, heme him 10.6, hematocrit 33.6, platelet count of 66,000. Sodium 136, potassium 3.2, chlorides 110, CO2 20, anion gap 6. BUN is 21, creatinine 1.21. Abdomen and pelvic CT as well as abdominal and bladder ultrasound are reviewed. Progress note dated 04/06/2021. 68-year-old female with history of Escherichia coli urinary tract infection /urosepsis, with hydronephrosis, and emphysematous pyelonephritis. The patient is doing well. She is on 5 L nasal cannula. She's getting saline at 30 mL an hour. She is seen this morning in room 253. She has no major complaints. She was hoping to get the Stein catheter out, but urology feels that the catheter should stay again for the time being. She has no major complaints today other than the Stein catheter. Current laboratory data from April 06 is currently pending. No x-ray today. Objective - Vital Signs Vital signs: Vital Signs Temp 99.9 F H 04/06/21 00:00 Pulse 97 04/06/21 05:00 Resp 19 04/06/21 05:00 BP 134/78 04/06/21 05:00 Pulse Ox 98 04/06/21 05:00 Intake & Output 04/05/21 04/05/21 04/06/21 06:59 18:59 06:59 Intake Total 330 360 630 Output Total 3392 375 6934 Balance -105 -405 -920 Weight 69.9 kg 71 kg Intake: IV 330 360 330 .9 @ 130 mL/hr 330 360 330 Oral 300 Output: Urine 8853 610 5223 Other: Voiding Method Indwelling Catheter Indwelling Catheter Indwelling Catheter - Exam No acute distress, oriented 3. Currently on 5 L nasal cannula. No respiratory distress, use of accessory muscles, or conversational dyspnea. Much more awake and appropriate today. HEENT examination is grossly unremarkable. Neck supple. Full range of motion. No adenopathy thyromegaly or neck vein distention. Cardiovascular examination reveals regular rhythm rate. S1-S2 normal. No S3 or S4. No discernible murmur noted. Heart rate 97. Lungs reveal mild scattered rhonchi. No wheezes or crackles. Breath sounds equal bilaterally. Saturation 98% on 4 L. Abdomen mildly distended and tender. Bowel sounds are noted. No masses. Extremities are intact. No cyanosis clubbing or edema. Skin is without rash or lesion. Neurologic examination is brief but nonfocal. - Labs CBC & Chem 7: 04/05/21 04:12 04/05/21 04:12 Labs: Abnormal Lab Results - Last 24 Hours (Table) 04/05/21 04/05/21 Range/Units 17:56 17:56 APTT 30.2 H (22.0-30.0) sec Fibrinogen 804 H (200-500) mg/dL Lactate Dehydrogenase 1475 H (313-618) U/L Microbiology - Last 24 Hours (Table) 04/02/21 21:40 Blood Culture Gram Stain - Final Blood Blood Culture - Final Escherichia coli 04/02/21 21:55 Blood Culture Gram Stain - Final Blood Blood Culture - Final Escherichia coli Assessment and Plan Assessment: Acute emphysematous pyelonephritis with urosepsis/septic shock and evidence of hydronephrosis and hydroureter without obvious stone. Escherichia coli urosepsis/septic shock with bacteremia. Bibasilar atelectasis, doubt pneumonia. History of CAD, status post stent placement. History of CVA. History of gastroesophageal reflux disease. History of hypertension. History of myocardial infarction. History of cervical cancer. History of ongoing tobacco use with nicotine addiction. Plan: Plan dated 04/03/2021. Currently, the patient's on 5 L nasal cannula, is receiving saline at 130 mL an hour. She is also receiving ceftriaxone. No pressor at this time. I will add some updrafts. She is a chronic tobacco user. Changes of the lung bases likely reflect atelectasis rather than pneumonia. We will continue to follow. Prognosis is guarded. Urology has been notified. Plan dated 04/04/2021. The patient's O2 is been turned on the 4 L. Saturations are 95%. She remains on Rocephin. Urine and blood for positive for Escherichia coli. The patient is feeling better today. Of note, the patient does have some abdominal distention and tenderness. A flat plate of the abdomen was ordered. Labs are reviewed. Chest x-ray shows chronic changes without anything acute. Urology is not planning any surgical intervention at this time. Plan dated 04/05/2021. Currently, the patient's on 5 L nasal cannula. She's getting saline at 30 mL an hour. She is much more awake and alert. She remains on Rocephin for Escherichia coli infection. The patient does not want to be transferred to [facility]. Apparently that was what the family wanted yesterday. We will continue to follow. Prognosis is guarded. Generally speaking, she is doing much better today. Plan dated 04/06/2021. Currently, the patient remains on 5 L nasal cannula. Saturations are 98%. She's getting saline at 30 mL an hour. She's awake and appropriate. Her only complaint is a Stein catheter. I did have an opportunity to speak to the urologist S today. He feels that the patient has emphysematous pyelonephritis. She's currently on Rocephin. She is improving. She could be transferred out of the intensive care unit. No additional recommendations are made. Time with Patient: Less than 30
[2021-04-06 06:05] LABS: Calcium 8.7 mg/dL (8.4-10.2); Potassium 3.4 mmol/L (3.5-5.1)
[2021-04-06 06:08] LABS: Platelet Count 72 k/uL (150-450)
[2021-04-06] MEDS ORDERED: Potassium Replacement Protocol 1 EACH MISC MISCELLANE PRN (06:09)
[2021-04-06] MEDS: NOREPINEPHRINE 4 MG in SODIUM CHLORIDE 0.9% 250 ML IV SCH (06:10)
[2021-04-06] MEDS: POTASSIUM CHLORIDE ER 20 MEQ TAB.ER PO SCH ×2 (06:21→07:01)
[2021-04-06] MEDS: IPRATROPIUM-ALBUTEROL 3 ML NEB INHALATION SCH ×3 (08:23→20:01)
[2021-04-06] MEDS: PANTOPRAZOLE 40 MG TABLET PO SCH (08:49)
[2021-04-06] MEDS: CHOLECALCIFEROL 25 MCG (1000 IU) TABLET PO SCH (08:49)
[2021-04-06] MEDS: ALPRAZolam 0.25 MG TAB PO SCH ×2 (08:50→20:31)
[2021-04-06] MEDS: NICOTINE 14MG/24HR PATCH TRANSDERM SCH (08:50)
[2021-04-06] MEDS: GABAPENTIN 400 MG CAP PO SCH ×3 (08:50→20:31)
[2021-04-06] MEDS: METOPROLOL SUCCINATE (ER) 25 MG TAB.ER.24H PO SCH (08:50)
[2021-04-06 09:52] LABS: Ferritin 212.2 ng/mL (10.0-291.0)
[2021-04-06 10:30] LABS: % Iron Saturation 1.9 (12.00-45.00)
--- NOTE | 2021-04-06 12:09 | P.PN ---
Subjective Progress Note Date: 04/06/21 No acute events. Resolving abdominal pain. Patient having some altered mental status and will be evaluated by psych. Objective - Vital Signs Vital signs: Vital Signs Temp 99.3 F 04/06/21 08:00 Pulse 96 04/06/21 11:00 Resp 22 04/06/21 11:00 BP 103/82 04/06/21 11:00 Pulse Ox 99 04/06/21 11:00 Intake & Output 04/05/21 04/06/21 04/06/21 18:59 06:59 18:59 Intake Total 360 660 650 Output Total 765 1575 500 Balance -405 -915 150 Weight 71 kg Intake: IV 360 360 150 .9 @ 130 mL/hr 360 360 150 Oral 300 500 Output: Urine 765 1575 500 Other: Voiding Method Indwelling Catheter Indwelling Catheter Indwelling Catheter - Respiratory Details: No difficulty with respiration - Gastrointestinal Gastrointestinal Comment(s): Soft, nontender, mild distention, no rebound, no guarding - Labs CBC & Chem 7: 04/06/21 04:59 04/06/21 04:59 Labs: Abnormal Lab Results - Last 24 Hours (Table) 04/05/21 04/05/21 04/06/21 Range/Units 17:56 17:56 04:59 WBC 11.2 H (3.8-10.6) k/uL RBC 3.20 L (3.80-5.40) m/uL Hgb 11.0 L (11.4-16.0) gm/dL Hct 31.5 L (34.0-46.0) % Plt Count 72 L (150-450) k/uL APTT 30.2 H (22.0-30.0) sec Fibrinogen 804 H (200-500) mg/dL Sodium (137-145) mmol/L Potassium (3.5-5.1) mmol/L Carbon Dioxide (22-30) mmol/L Iron 5 L (50-170) ug/dL % Saturation 1.90 L (12.00-45.00) Lactate Dehydrogenase 1475 H (313-618) U/L 04/06/21 Range/Units 04:59 WBC (3.8-10.6) k/uL RBC (3.80-5.40) m/uL Hgb (11.4-16.0) gm/dL Hct (34.0-46.0) % Plt Count (150-450) k/uL APTT (22.0-30.0) sec Fibrinogen (200-500) mg/dL Sodium 132 L (137-145) mmol/L Potassium 3.4 L (3.5-5.1) mmol/L Carbon Dioxide 21 L (22-30) mmol/L Iron (50-170) ug/dL % Saturation (12.00-45.00) Lactate Dehydrogenase (313-618) U/L Microbiology - Last 24 Hours (Table) 04/05/21 04:12 Blood Culture - Preliminary Blood No Growth after 24 hours 04/02/21 21:40 Blood Culture Gram Stain - Final Blood Blood Culture - Final Escherichia coli 04/02/21 21:55 Blood Culture Gram Stain - Final Blood Blood Culture - Final Escherichia coli Assessment and Plan Plan: 60yo F with pyelonephritis and ileus - Ileus appears to be improving - Denies abdominal pain. - No acute surgical intervention planned at this point, will continue to monitor - Please call if any change in clinical exam for further evaluation from surgery.
--- NOTE | 2021-04-06 16:18 | P.PN ---
Subjective Progress Note Date: 04/06/21 This is 60-year-old female with a past medical history of coronary artery disease, CVA, GERD, hypertension, [place], and nicotine dependence, presented to the ER with complaints of right flank pain radiating to the groin that started earlier in the a.m. accompanied by nausea, vomiting, weakness and shortness of breath. Denies fever or chills. Denies any chest pain, palpitations. Denies any lightheadedness, dizziness or focal deficits. Hypertensive, tachycardic, febrile with borderline hypoxia on admission.WBC 20.9, hemoglobin 11.4, platelets 117. Lactic acid 3.8, 2.1, 3.0. Became Hypotensive, received a total of 4 L of IV fluids. Currently lactic acid decreased to 1.8. requiring 5 L nasal cannula and maintaining O2 sats in the 90s. Chest x-ray reported mild interstitial infiltrates, subsegmental atelectasis at bilateral bases similar to prior exam. CT of abdomen and pelvis reported right sided hydronephrosis and hydroureter with perinephric edema that could relate to non-opaque obstructing stone or recently passed stone. Common bile duct large, measuring up to 13 mm. sodium 135, potassium 4.4 BUN 30, creatinine 1.93. Magnesium 1.4, repeat level pending. Elevated LFTs, improving .UA reporting greater than 182 WBCs, large leukocytes, negative nitrate. Urine and blood cultures obtained .Maintained on IV fluids and IV antibiotics. Evaluated by urology, with no surgical intervention recommended at this time. IV fluids and IV antibiotics of ceftriaxone initiated 04/04/2021 maintained on IV fluid resuscitation of 130 MLS per hour, Rocephin. Positive bowel movement yesterday. Complaining of persistent right flank pain, radiating to mid abdomen. Renal function improving, creatinine down to 1.5. Currently afebrile, T-max 100.1. preliminary blood cultures reporting E. coli, p reliminary urine culture reporting gram-negative bacilli. WBC decreased to 11.9. Mild tachycardia.Denies chest pain, palpitations or shortness of breath. Denies lightheadedness, dizziness or focal deficits. Maintaining O2 sats in the 90s on 5 L nasal cannula. Chest x-ray reporting chronic perforation while changes without acute pulmonary process. Hemoglobin 11, platelets 83. 04/05/2021 Patient had been receiving fluid resuscitation, possible mild fluid overload, IV fluids decreased, received a dose of Lasix IV push, diuresed well with 24-hour I&O reflecting a negative fluid balance .requesting Stein catheter be discontinued, defer to urology. Evaluated by surgery regarding worsening abdominal pain/distention, radiology studies reviewed,attributed to an ileus. Urine with E. coli ,Bacteremic with E. coli , evaluated by infectious disease. Repeat blood culture in progress. Continues on IV antibiotics. T-max of 102.2, WBC within normal limits. Hemoglobin 10.6, Platelets continue trending down ,66. Potassium 3.2, creatinine down to 1.21. No further diarrhea. 04/06/2021 maintaining O2 sats in the 90s on 5 L nasal cannula. Antibiotics as ID. T-max 100.8, and WBC 11.2. Hemoglobin 11, platelets 72. Sodium 132, potassium 3.4-receiving supplementation, bicarb 21. Renal function improving, creatinine down to 0.98. Positive diarrhea, tested negative for C. diff. tolerating full liquid diet, denies nausea or vomiting. Denies abdominal pain. Denies chest pain, palpitations or shortness of breath. Denies lightheadedness, dizziness or focal deficits. Objective - Vital Signs Vital signs: Vital Signs Temp 98.3 F 04/06/21 12:00 Pulse 104 H 04/06/21 13:49 Resp 28 H 04/06/21 13:00 BP 137/76 04/06/21 13:00 Pulse Ox 97 04/06/21 13:00 Intake & Output 04/05/21 04/06/21 04/06/21 18:59 06:59 18:59 Intake Total 360 660 710 Output Total 765 1575 800 Balance -405 -915 -90 Weight 71 kg Intake: IV 360 360 210 .9 @ 130 mL/hr 360 360 210 Oral 300 500 Output: Urine 765 1575 800 Other: Voiding Method Indwelling Catheter Indwelling Catheter Indwelling Catheter # Bowel Movements 1 - Exam PHYSICAL EXAM: VITAL SIGNS: As above GENERAL: Sitting up in chair, in no acute distress HEENT: Conjunctivae normal. eyes normal. NECK: No JVD. No thyroid enlargement. No LNs CARDIOVASCULAR: S1, S2 regular.. No murmur, mild tachycardia RESPIRATION: Breath sounds diminished in the bases. Scattered rhonchi, no crackles. ABDOMEN: Soft, mildly distended, disffuse tenderness,No guarding. Positive bowel sounds. LEGS: No edema. no swelling PSYCHIATRY: Alert and oriented X3, mood and affect normal. NERVOUS SYSTEM: Cranial N 2-12 grossly normal. Moves all 4 limbs. Diffuse weakness,No focal deficits. Strength and sensation grossly intact. Skin: Warm and dry, no rash Microbiology 04/02/21 21:40 Blood Blood Culture Gram Stain - Final 04/02/21 21:40 Blood Blood Culture - Final Escherichia coli 04/02/21 21:55 Blood Blood Culture Gram Stain - Final 04/02/21 21:55 Blood Blood Culture - Final Escherichia coli 04/02/21 20:50 Urine,Clean Catch Urine Culture - Final Escherichia coli 04/02/21 21:40 Blood Blood Culture - Final 04/02/21 21:55 Blood Blood Culture - Final - Labs CBC & Chem 7: 04/06/21 04:59 04/06/21 04:59 Labs: Abnormal Lab Results - Last 24 Hours (Table) 04/05/21 04/05/21 04/05/21 Range/Units 17:56 17:56 17:56 WBC (3.8-10.6) k/uL RBC (3.80-5.40) m/uL Hgb (11.4-16.0) gm/dL Hct (34.0-46.0) % Plt Count (150-450) k/uL Haptoglobin 320.0 H (31.2-198.0) mg/dL APTT (22.0-30.0) sec Fibrinogen (200-500) mg/dL Sodium (137-145) mmol/L Potassium (3.5-5.1) mmol/L Carbon Dioxide (22-30) mmol/L Iron 5 L (50-170) ug/dL % Saturation 1.90 L (12.00-45.00) Lactate Dehydrogenase 1475 H (313-618) U/L Vitamin B12 1682.0 H (200.0-944.0) pg/mL RBC Folate 1,114 H (280 - 791) ng/mL 04/05/21 04/06/21 04/06/21 Range/Units 17:56 04:59 04:59 WBC 11.2 H (3.8-10.6) k/uL RBC 3.20 L (3.80-5.40) m/uL Hgb 11.0 L (11.4-16.0) gm/dL Hct 31.5 L (34.0-46.0) % Plt Count 72 L (150-450) k/uL Haptoglobin (31.2-198.0) mg/dL APTT 30.2 H (22.0-30.0) sec Fibrinogen 804 H (200-500) mg/dL Sodium 132 L (137-145) mmol/L Potassium 3.4 L (3.5-5.1) mmol/L Carbon Dioxide 21 L (22-30) mmol/L Iron (50-170) ug/dL % Saturation (12.00-45.00) Lactate Dehydrogenase (313-618) U/L Vitamin B12 (200.0-944.0) pg/mL RBC Folate (280 - 791) ng/mL Microbiology - Last 24 Hours (Table) 04/05/21 04:12 Blood Culture - Preliminary Blood No Growth after 24 hours Assessment and Plan Assessment: Sepsis with Septic shock secondary to acute right pyelonephritis, right hydroureteronephrosis -etiology unclear, bacteremia and UTI, present on admission, Acute UTI with E. coli Bacteremia with E. coli ileus, improving Acute renal failure, improving Bibasilar atelectasis, Thrombocytopenia of unclear etiology, possibly related to sepsis, hematology following, CAD, history of [place] Gastroesophageal reflux disease History of CVA History of cervical cancer Anxiety Depression Ongoing nicotine dependence Plan: Continue on current medication regime ,monitoring and symptomatic treatment. Antibiotics as per ID. iron studies.Close monitoring of renal function, coags,electrolytes with repeat labs ordered for a.m. PT/OT. Prognosis guarded given multiple complex medical issues. The impression and plan of care has been dictated as directed. : I performed a history and examination of this patient, discussed the same with the dictator. I agree with the dictator's note ,documented as a scribe. Any additional findings or plans will be noted.
[2021-04-06] MEDS: HYDROcodone/APAP 10-325MG 1 EACH TAB PO PRN (16:32)
--- NOTE | 2021-04-06 17:51 | P.PN ---
Subjective Progress Note Date: 04/06/21 Dr. Alfonso seen and evaluated this am, no acute changes Objective - Vital Signs Vital signs: Vital Signs Temp 99.4 F 04/06/21 16:00 Pulse 95 04/06/21 17:00 Resp 25 H 04/06/21 17:00 BP 134/74 04/06/21 17:00 Pulse Ox 97 04/06/21 17:00 Intake & Output 04/05/21 04/06/21 04/06/21 18:59 06:59 18:59 Intake Total 360 660 800 Output Total 765 1575 800 Balance -405 -915 0 Weight 71 kg Intake: IV 360 360 300 .9 @ 130 mL/hr 360 360 300 Oral 300 500 Output: Urine 765 1575 800 Other: Voiding Method Indwelling Catheter Indwelling Catheter Indwelling Catheter # Bowel Movements 1 - Exam - Constitutional General appearance: average body habitus, cooperative, no acute distress - EENT no wet purpura Eyes: anicteric sclerae, EOMI ENT: hearing grossly normal, normal oropharynx - Neck Neck: no lymphadenopathy - Respiratory Respiratory: bilateral: CTA - Cardiovascular Rhythm: regular Heart sounds: normal: S1, S2 Abnormal Heart Sounds: no systolic murmur, no diastolic murmur, no rub, no S3 Gallop, no S4 Gallop, no click, no other leg Peripheral Edema: bilateral: None - Gastrointestinal fullness in the upper quadrants, no rebound General gastrointestinal: distended, normal bowel sounds, soft - Integumentary no petechiae on the chest, abdomen, legs. She does have a few bruises on the forearms, no hematomas. No blood around IV insertion site, no gross blood visible in Stein - Neurologic Neurologic: CNII-XII intact - Musculoskeletal Musculoskeletal: strength equal bilaterally - Psychiatric Psychiatric: A&O x's 3, appropriate affect, intact judgment & insight - Labs CBC & Chem 7: 04/06/21 04:59 04/06/21 04:59 Labs: Abnormal Lab Results - Last 24 Hours (Table) 04/05/21 04/05/21 04/05/21 Range/Units 17:56 17:56 17:56 WBC (3.8-10.6) k/uL RBC (3.80-5.40) m/uL Hgb (11.4-16.0) gm/dL Hct (34.0-46.0) % Plt Count (150-450) k/uL Haptoglobin 320.0 H (31.2-198.0) mg/dL APTT (22.0-30.0) sec Fibrinogen (200-500) mg/dL Sodium (137-145) mmol/L Potassium (3.5-5.1) mmol/L Carbon Dioxide (22-30) mmol/L Iron 5 L (50-170) ug/dL % Saturation 1.90 L (12.00-45.00) Lactate Dehydrogenase 1475 H (313-618) U/L Vitamin B12 1682.0 H (200.0-944.0) pg/mL RBC Folate 1,114 H (280 - 791) ng/mL 04/05/21 04/06/21 04/06/21 Range/Units 17:56 04:59 04:59 WBC 11.2 H (3.8-10.6) k/uL RBC 3.20 L (3.80-5.40) m/uL Hgb 11.0 L (11.4-16.0) gm/dL Hct 31.5 L (34.0-46.0) % Plt Count 72 L (150-450) k/uL Haptoglobin (31.2-198.0) mg/dL APTT 30.2 H (22.0-30.0) sec Fibrinogen 804 H (200-500) mg/dL Sodium 132 L (137-145) mmol/L Potassium 3.4 L (3.5-5.1) mmol/L Carbon Dioxide 21 L (22-30) mmol/L Iron (50-170) ug/dL % Saturation (12.00-45.00) Lactate Dehydrogenase (313-618) U/L Vitamin B12 (200.0-944.0) pg/mL RBC Folate (280 - 791) ng/mL Microbiology - Last 24 Hours (Table) 04/05/21 04:12 Blood Culture - Preliminary Blood No Growth after 24 hours Assessment and Plan Plan: CT scan - abdomen: report reviewed CT scan - pelvis: report reviewed Assessment and Plan (1) Thrombocytopenia Current Visit: Yes Status: Acute Priority: High Code(s): D69.6 - THROMBOCYTOPENIA, UNSPECIFIED SNOMED Code(s): 376217827 (2) Normocytic normochromic anemia Current Visit: Yes Status: Acute Priority: High Code(s): D64.9 - ANEMIA, UNSPECIFIED SNOMED Code(s): 58083811 Plan: - Iron studies are low, however if concern of sepsis should hold off on iron IV - Recheck Hepatic Function - Monitor for DIC Physician Attest": I have completed the full history and physical and agree with above dictation, dictated as a ascribe
--- NOTE | 2021-04-06 19:43 | PN ---
PROGRESS NOTE DATE OF SERVICE: 04/06/2021 REASON FOR FOLLOWUP: E coli UTI and bacteremia. INTERVAL HISTORY: Patient is afebrile. The patient is breathing comfortably. The patient wants the Stein catheter to be out. Patient denies any chest pain or shortness of breath. No abdominal pain, no diarrhea. PHYSICAL EXAMINATION: Blood pressure is 121/71, pulse of 90, temperature 98.3. She is 99% on 4 L nasal cannula. General description is a middle-aged female up in the chair in no distress. Respiratory system: Unlabored breathing, clear to auscultation anteriorly. Heart S1, S2. Regular rate and rhythm. Abdomen soft, no tenderness. LABS: Hemoglobin is 11.9, white count 9.2, BUN of 14, creatinine 0.98. DIAGNOSTIC IMPRESSION AND PLAN: Patient with E coli complicated urinary tract infection with secondary bacteremia. The patient is covered with Rocephin, to continue while monitoring clinical course closely. Continue supportive care. MMODL / IJN: [id number] /
[2021-04-06 20:01] LABS: Albumin 2.4 g/dL (3.5-5.0); Bilirubin, Delta 0.1 mg/dL (0.0-0.2); Bilirubin,Unconjugated 0.6 mg/dL (0.0-1.1); Total Bilirubin 0.7 mg/dL (0.2-1.3); Total Protein 4.8 g/dL (6.3-8.2)
[2021-04-06] MEDS: ATORVASTATIN 20 MG TAB PO SCH (20:31)
[2021-04-07] MEDS: HYDROcodone/APAP 10-325MG 1 EACH TAB PO PRN (02:23)
[2021-04-07] MEDS: ACETAMINOPHEN TAB 325 MG TAB PO PRN ×2 (02:34→20:50)
[2021-04-07 03:05] LABS: Folate, Serum 10.1 ng/mL
[2021-04-07 05:57] LABS: Basophils % (A) 0 %; Eosinophils # (A) 0.1 k/uL (0-0.7); Eosinophils % (A) 1 %; HCT 31.4 % (34.0-46.0); HGB 10.7 gm/dL (11.4-16.0); Lymphocytes # (A) 1.3 k/uL (1.0-4.8); Lymphocytes % (A) 13 %; MCHC 33.9 g/dL (31.0-37.0); MCV 97.3 fL (80.0-100.0); Mean Platelet Volume 8.8; Monocytes # (A) 0.7 k/uL (0-1.0); Monocytes % (A) 7 %; Neutrophils # (A) 7.5 k/uL (1.3-7.7); Neutrophils % (A) 75 %; RBC 3.23 m/uL (3.80-5.40); RDW 13.8 % (11.5-15.5); WBC 10.1 k/uL (3.8-10.6)
[2021-04-07 05:58] LABS: Platelet Count 84 k/uL (150-450)
[2021-04-07 06:06] LABS: INR 1.1 (<1.2); Prothrombin Time 11.1 sec (9.0-12.0)
[2021-04-07 06:10] LABS: Albumin 2.4 g/dL (3.5-5.0); Calcium 8.7 mg/dL (8.4-10.2); Magnesium 1.6 mg/dL (1.6-2.3); Potassium 3.2 mmol/L (3.5-5.1); Total Bilirubin 0.8 mg/dL (0.2-1.3); Total Protein 4.7 g/dL (6.3-8.2)
--- NOTE | 2021-04-07 06:16 | P.PN ---
Subjective Progress Note Date: 04/07/21 Principal diagnosis: Urosepsis/septic shock. Pulmonary consult dated 04/03/2021. This is a 68-year-old female, who presents to the emergency department, not feeling well. She apparently started off with right flank pain the morning of admission to the emergency department. Symptoms apparently progress. She was also having nausea and vomiting. She was feeling very weak. She apparently also was complaining of shortness of breath. No chest pain headache or dizziness. The patient denied any dysuria, hematuria, or foul-smelling urine. She had no fever or chills or other complaints. I was called by the ER physician who wanted to admit the patient to the intensive care unit for urinary tract infection/urosepsis, with hydronephrosis. Urology was notified. She apparently has a history of CAD, CVA, GERD, hypertension, myocardial infarction, cervical cancer, and low back pain. White count was 20.9, hemoglobin 13.4, hematocrit 39.3, platelet count 160,000. Sodium 135, potassium 3.5, chlorides 107, CO2 18, anion gap 10, BUN 27, creatinine 2.25. Lactic acid was initially 2.1 and then increased to 3.0. AST 115 ALT 75. Coronavirus testing was negative. Urine was turbid, with 3+ protein, large amount of blood, large positive leukocyte esterase, greater than 182 RBCs and WBCs, many white blood cell clumps. Chest x-ray revealed some interstitial infiltrates and atelectasis at the lung bases. A CT of the abdomen and pelvis revealed some interstitial infiltrates and emphysematous changes at the lung bases bilaterally, without any suspicious pulmonary masses. There is right-sided hydronephrosis and hydroureter with perinephric edema. No stone noted. Progress note dated 04/04/2021. 68-year-old female with a history of urinary tract infection/urosepsis, pyelonephritis, with hydronephrosis, and E. coli septic shock. Currently, patient's doing better. Her blood pressure is a little soft last night, so we gave her some additional fluids. She never required vasopressor. She is on 5 L nasal cannula. She's getting saline at 130 mL an hour. Her blood and urine was positive pressure recheck E. coli. She's currently on IV Rocephin. I read the note from the urologist, who does not anticipate any surgical intervention at this time. White count 11.9, hemoglobin 11, hematocrit 34.2, platelet count 83,000. Sodium 135, potassium 4.1, chlorides 111, CO2 19, anion gap is 5, BUN 25, creatinine 1.50. Chest x-ray shows nothing acute. A flatplate of the abdomen was done because of abdominal distention. Progress note dated 04/05/2021. 68-year-old female with history of Escherichia coli urinary tract infection/urosepsis, with hydronephrosis. Yesterday, the patient was a bit confused. She was complaining of abdominal distention and pain. She was seen by surgery. They are thinking that she probably has an ileus. The patient never required vasopressor. Currently, her breathing is much improved. She is on 5 L nasal cannula. She's getting saline at 30 mL an hour. She would like her Stein catheter removed. We'll run that past urology. She's currently on IV Rocephin. White count 10.3, heme him 10.6, hematocrit 33.6, platelet count of 66,000. Sodium 136, potassium 3.2, chlorides 110, CO2 20, anion gap 6. BUN is 21, creatinine 1.21. Abdomen and pelvic CT as well as abdominal and bladder ultrasound are reviewed. Progress note dated 04/06/2021. 68-year-old female with history of Escherichia coli urinary tract infection /urosepsis, with hydronephrosis, and emphysematous pyelonephritis. The patient is doing well. She is on 5 L nasal cannula. She's getting saline at 30 mL an hour. She is seen this morning in room 253. She has no major complaints. She was hoping to get the Stein catheter out, but urology feels that the catheter should stay again for the time being. She has no major complaints today other than the Stein catheter. Current laboratory data from April 06 is currently pending. No x-ray today. Progress note dated 04/07/2021. 68-year-old female seen again in room 521. The patient has a history of Escherichia coli urinary tract infection/urosepsis, with hydronephrosis, and emphysematous pyelonephritis. Currently, the patient is doing well. She is on no IV fluids. She is receiving nasal O2 at 4 L. She has no major complaints and she is resting comfortably. Blood and urine sampling is positive for Escherichia coli. The patient remains on Rocephin. Laboratory data from today includes a white count 10.1, hemoglobin 10.7, hematocrit 31.4, and a platelet count of 84,000. Sodium 133, potassium 3.2, chlorides 107, CO2 20, anion gap, BUN, and creatinine are all normal. Objective - Vital Signs Vital signs: Vital Signs Temp 98.3 F 04/07/21 04:34 Pulse 104 H 04/07/21 04:34 Resp 16 04/07/21 04:34 BP 102/66 04/07/21 04:34 Pulse Ox 95 04/07/21 04:34 Intake & Output 04/06/21 04/06/21 04/07/21 06:59 18:59 06:59 Intake Total 660 860 Output Total 1575 1200 1000 Balance -915 -340 -1000 Weight 71 kg Intake: IV 360 360 .9 @ 130 mL/hr 360 360 Oral 300 500 Output: Urine 1575 1200 1000 Other: Voiding Method Indwelling Catheter Indwelling Catheter # Bowel Movements 1 - Exam No acute distress, oriented 3. Currently on 4 L nasal cannula. No respiratory distress, use of accessory muscles, or conversational dyspnea. Much more awake and appropriate today. HEENT examination is grossly unremarkable. Neck supple. Full range of motion. No adenopathy thyromegaly or neck vein distention. Cardiovascular examination reveals regular rhythm rate. S1-S2 normal. No S3 or S4. No discernible murmur noted. Heart rate 100. Lungs reveal mild scattered rhonchi. No wheezes or crackles. Breath sounds equal bilaterally. Saturation 95% on 4 L. breath sounds in my opinion are i mproved. Abdomen mildly distended and tender. Bowel sounds are noted. No masses. Extremities are intact. No cyanosis clubbing or edema. Skin is without rash or lesion. Neurologic examination is brief but nonfocal. - Labs CBC & Chem 7: 04/07/21 04:52 04/07/21 04:52 Labs: Abnormal Lab Results - Last 24 Hours (Table) 04/05/21 04/05/21 04/05/21 Range/Units 17:56 17:56 17:56 RBC (3.80-5.40) m/uL Hgb (11.4-16.0) gm/dL Hct (34.0-46.0) % Plt Count (150-450) k/uL Haptoglobin 320.0 H (31.2-198.0) mg/dL Sodium (137-145) mmol/L Potassium (3.5-5.1) mmol/L Carbon Dioxide (22-30) mmol/L Iron 5 L (50-170) ug/dL % Saturation 1.90 L (12.00-45.00) Alkaline Phosphatase (38-126) U/L Lactate Dehydrogenase (313-618) U/L Total Protein (6.3-8.2) g/dL Albumin (3.5-5.0) g/dL Vitamin B12 1682.0 H (200.0-944.0) pg/mL RBC Folate 1,114 H (280 - 791) ng/mL 04/06/21 04/07/21 04/07/21 Range/Units 04:59 04:52 04:52 RBC 3.23 L (3.80-5.40) m/uL Hgb 10.7 L (11.4-16.0) gm/dL Hct 31.4 L (34.0-46.0) % Plt Count 84 L (150-450) k/uL Haptoglobin (31.2-198.0) mg/dL Sodium 133 L (137-145) mmol/L Potassium 3.2 L (3.5-5.1) mmol/L Carbon Dioxide 20 L (22-30) mmol/L Iron (50-170) ug/dL % Saturation (12.00-45.00) Alkaline Phosphatase 202 H 157 H (38-126) U/L Lactate Dehydrogenase 1208 H (313-618) U/L Total Protein 4.8 L 4.7 L (6.3-8.2) g/dL Albumin 2.4 L 2.4 L (3.5-5.0) g/dL Vitamin B12 1378.0 H (200.0-944.0) pg/mL RBC Folate (280 - 791) ng/mL Microbiology - Last 24 Hours (Table) 04/05/21 04:12 Blood Culture - Preliminary Blood No Growth after 24 hours Assessment and Plan Assessment: Acute emphysematous pyelonephritis with urosepsis/septic shock and evidence of hydronephrosis and hydroureter without obvious stone. Escherichia coli urosepsis/septic shock with bacteremia. Bibasilar atelectasis, doubt pneumonia. History of CAD, status post stent placement. History of CVA. History of gastroesophageal reflux disease. History of hypertension. History of myocardial infarction. History of cervical cancer. History of ongoing tobacco use with nicotine addiction. Plan: Plan dated 04/03/2021. Currently, the patient's on 5 L nasal cannula, is receiving saline at 130 mL an hour. She is also receiving ceftriaxone. No pressor at this time. I will add some updrafts. She is a chronic tobacco user. Changes of the lung bases likely reflect atelectasis rather than pneumonia. We will continue to follow. Prognosis is guarded. Urology has been notified. Plan dated 04/04/2021. The patient's O2 is been turned on the 4 L. Saturations are 95%. She remains on Rocephin. Urine and blood for positive for Escherichia coli. The patient is feeling better today. Of note, the patient does have some abdominal distention and tenderness. A flat plate of the abdomen was ordered. Labs are reviewed. Chest x-ray shows chronic changes without anything acute. Urology is not planning any surgical intervention at this time. Plan dated 04/05/2021. Currently, the patient's on 5 L nasal cannula. She's getting saline at 30 mL an hour. She is much more awake and alert. She remains on Rocephin for Escherichia coli infection. The patient does not want to be transferred to [facility]. Apparently that was what the family wanted yesterday. We will continue to follow. Prognosis is guarded. Generally speaking, she is doing much better today. Plan dated 04/06/2021. Currently, the patient remains on 5 L nasal cannula. Saturations are 98%. She's getting saline at 30 mL an hour. She's awake and appropriate. Her only complaint is a Stein catheter. I did have an opportunity to speak to the urologist S today. He feels that the patient has emphysematous pyelonephritis. She's currently on Rocephin. She is improving. She could be transferred out of the intensive care unit. No additional recommendations are made. Plan dated 04/07/2021. The patient appears to be much more stable. She remains on Rocephin for her Escherichia coli infection. We did ask psychiatry to see the patient but it appears that they have not seen her as yet. The patient appears to be relatively stable. She was transferred out of the intensive care unit. She is resting comfortably in room 521. She's not receiving any IV fluids. I discussed the case with urology. No surgical intervention at this time. Additional recommendations and suggestions are forthcoming. Time with Patient: Less than 30
[2021-04-07] MEDS: IPRATROPIUM-ALBUTEROL 3 ML NEB INHALATION SCH ×3 (07:24→19:44)
[2021-04-07] MEDS: ALPRAZolam 0.25 MG TAB PO SCH ×2 (07:28→20:50)
[2021-04-07] MEDS: METOPROLOL SUCCINATE (ER) 25 MG TAB.ER.24H PO SCH (07:28)
[2021-04-07] MEDS: GABAPENTIN 400 MG CAP PO SCH ×3 (07:28→20:50)
[2021-04-07] MEDS: POTASSIUM CHLORIDE ER 20 MEQ TAB.ER PO SCH ×2 (07:28→08:58)
[2021-04-07] MEDS: PANTOPRAZOLE 40 MG TABLET PO SCH (07:29)
[2021-04-07] MEDS: CHOLECALCIFEROL 25 MCG (1000 IU) TABLET PO SCH (07:29)
[2021-04-07] MEDS: NICOTINE 14MG/24HR PATCH TRANSDERM SCH (07:41)
[2021-04-07] MEDS: SODIUM CHLORIDE 0.9% 1,000 ML IV SCH (11:31)
--- NOTE | 2021-04-07 12:17 | P.PN ---
Progress Note - Text Progress Note Date: 04/07/21 The patient spiked a fever last night of 101.8F, but is currently afebrile. She states that her right flank pain has resolved. The Stein catheter is draining clear yellow urine. From a urologic standpoint, she no longer requires a Stein catheter. She will continue to receive IV antibiotics.
[2021-04-07 15:19] LABS: Methylmalonic Acid 0.57 umol/L (<0.40)
[2021-04-07] MEDS: ATORVASTATIN 20 MG TAB PO SCH (20:50)
--- NOTE | 2021-04-07 22:36 | CONS ---
CONSULTATION DATE OF SERVICE: 04/06/2021 PURPOSE FOR CONSULTATION: Evaluate for altered mental status. HISTORY OF PRESENTING ILLNESS: The patient is a 60-year-old female. She was admitted on April 02 and was found to have sepsis secondary to acute right pyelonephritis. She was determined to have E coli complicated urinary tract infection with secondary bacteremia. She was started on Rocephin. She has had fluctuations in her temp with fever and had a maximum temperature of 102.2 on 04/04 at 1600 hours. Since then, her temp has generally been below 100. She was started on Rocephin. It is noted that this morning at 8 in the morning, she had a physical assessment and it was noted that she was oriented x3. She was appropriate in her interactions. She had an even mood. She did not show any signs of distress. At some point after that, in the morning the patient began developing delusions and becoming quite distressed. She had thoughts that her was having an affair with staff on the unit. She was quite restless and distressed. The following was documented by nursing: When I saw the patient in the afternoon about 3 o'clock,she was with her family. She was fairly calm. Her daughters indicated that what she exhibited in the morning time was completely out of character for her. Between the patient and family, they noted that she has not had a psychiatric history. She has had some anxiety issues for which she takes Xanax 0.25 mg twice a day which she has been taking for a considerable length of time. Other than that, she generally maintains a good mood. She has not had any significant problems with depression or other difficulties. At the time that I saw her, the daughters noted that there was still some uncertainty in the patient's thinking as far as some of the delusion she had, though overall she seemed to be clearing. From what the family said when I talked to the patient, she was interactive. She was generally appropriate in her thoughts in the sense that she said she did seem to have some hesitancy at times. A bit of a reserved manner, though otherwise was calm. I saw her a little while later with her . She did not verbalize any clear thoughts about the delusions she was experiencing in the morning time. She was oriented x3 and alert. She had a fairly clear understanding of her circumstances and current treatment issues. She had a somewhat worried manner though did not seem to be significantly distressed. She did not evidence any clear delusional thinking when I talked to her, though initially she did make some references that suggested she was still wondering about some of the ideas that she had expressed earlier. ASSESSMENT: This 60-year-old female is diagnosed with delirium secondary to urinary tract infection and sepsis. She has shown good clearing of the delusions she was having. I will add Haldol 2 mg 3 times a day p.r.n. with directions to repeat in one hour if necessary for agitation or delusions. She may continue to have some fluctuations in mental status over the next few days as her treatment for infection progresses. I would anticipate progressive clearing. I indicated to nursing that I should be contacted if the patient does show significant acute mental status changes. LUISA / FELICIA: [id number] / MTDD
--- NOTE | 2021-04-07 23:53 | P.CN ---
Psychiatric Consult - . Consult date: 04/07/21 Consult:: Reason for consultation: Altered mental status Identifying data: Patient is [id number] female who currently lives with her . The patient was seen while she was in medical floor. Chief complaint and history of present illness: The patient was admitted to the hospital because of abdominal pain. Psychiatric team consulted because of the patient AMS and reported delusions. The patient was seen while her was visiting "[place]" who was a the bed side. Patient was not fully oriented to place, and time but oriented to situation and person. Patient couldn't give history because of her cognitive impairment and confusion. She reports her PCP started her on Celexa and Xanax for depression and anxiety symptoms few years ago. She denies any history of psychotic disorder or delusions. Patient and her denies any history of cognitive problems but her reports similar symptoms "but much milder" when patient had "blood infection" few months ago. No history of S/H ideation, or behavior. No history of manic symptoms including feeling inflated self- esteem, a euphoric mood, unusual increased level of energy, lack need to sleep due to increased activities, impulsive and irrational behavior. No history of psychotic symptoms including auditory/visual hallucinations, paranoid ideation, delusions. Pt denies any PTSD symptoms including nightmares, flashbacks, intrusive thoughts related to previous psychological trauma. Past psychiatric history: Previous psychiatric hospitalization: Denies Previous suicidal attempts: None . Previous psychiatric treatment: Depression and anxiety disorders diagnosed by her PCP. Never treated by psychiatrist Currently on Celexa 40 mg daily and Xanax 0.25 mg BID for depression and anxiety Substance use history: Nicotine: quit smoking for years but relapsed few months ago Alcohol: Denies Cannabis: denies Denies using any street drugs or previous [place] Family history of psychiatric illness: Denies family history of mental illness or suicide. Brief social history: Currently lives with her , unemployed Completed high school diploma. has 3 children, all of them adults No history of psychological trauma Mental status examination; Appearance: The patient appears stated age, adequately groomed and dressed, no specific features. Gait/posture: Pt was lying in bed. No abnormal movements. Attitude and behavior: engaged, cooperative, fair eye contact. Motor activity: Normal psychomotor activity Speech: Normal rate, tone. Mood: Anxious Affect: Constricted Thought form: to some degree confused and disorganized but coherent. Thought content: Non-delusional, denies suicidal thoughts, denies homicidal thoughts, denies intentions or plans. Perception: Denies any auditory or visual hallucinations Attention: No impairment. Orientation: Patient was not fully oriented to time place but oriented to person and situation. Insight: Patient has fair insight about his psychiatric disorder. Judgment: Patient has fair judgment about his psychiatric treatment. Assessment: Altered mental status due to medical condition Anxiety disorder, unspecified Depressive disorder, unspecified Recommendations: Addressed and ensured patient's safety, patient is not actively suicidal, and does not meet the criteria for psychiatric hospitalization. Patient is not delusional and her current presentation of AMS most probably related to her medical condition Discharge of the patient's when medically stable. At this time there is no need for further follow-up by psychiatric team. Medication management: continue outpatient psychiatric medications Celexa and Xanax PRN Refer to outpatient psychiatric treatment after discharge Delirium precautions recommended with the patient including: Avoid use of narcotics and [employer] sedatives, limit anticholinergic medications when possible, frequent reorientation, minimize use of restraints, open window shades during the day and close them at night. Discussed the treatment plan with the requesting physician/service. Psycho-education was provided to the patient. Thank you for permitting me to assist in this patient's treatment. Please call psychiatry department if you have any question or need further help with this case. 04/07/21 23:42
--- NOTE | 2021-04-08 00:09 | PN ---
PROGRESS NOTE DATE OF SERVICE: 04/07/2021 REASON FOR FOLLOWUP: E coli UTI and bacteremia. INTERVAL HISTORY: Patient is afebrile. The patient is breathing comfortably. Denies having any chest pain, shortness of breath or cough. No abdominal pain. No diarrhea. PHYSICAL EXAMINATION: Blood pressure is 119/69, pulse of 97, temperature 98.8. She is 94% on 4 L nasal cannula. General description is a middle-aged female lying in bed in no distress. Respiratory system: Unlabored breathing, clear to auscultation anteriorly. Heart S1, S2. Regular rate and rhythm. ABDOMEN: Soft, no tenderness. EXTREMITIES: No edema of the feet. LABS: Hemoglobin is 10.7, white count 10.1, BUN of 13, creatinine 0.92. DIAGNOSTIC IMPRESSION AND PLAN: Patient with E coli UTI and bacteremia. Patient is currently covered with Rocephin to continue. Transition to oral antibiotic on discharge. Continue supportive care. MMODL / IJN: [id number] /
[2021-04-08] MEDS: IPRATROPIUM-ALBUTEROL 3 ML NEB INHALATION SCH ×3 (07:24→20:00)
[2021-04-08] MEDS: CHOLECALCIFEROL 25 MCG (1000 IU) TABLET PO SCH (07:29)
[2021-04-08] MEDS: METOPROLOL SUCCINATE (ER) 25 MG TAB.ER.24H PO SCH (07:29)
[2021-04-08] MEDS: PANTOPRAZOLE 40 MG TABLET PO SCH (07:29)
[2021-04-08] MEDS: NICOTINE 14MG/24HR PATCH TRANSDERM SCH ×2 (07:29→21:29)
[2021-04-08] MEDS: GABAPENTIN 400 MG CAP PO SCH ×3 (07:29→21:11)
[2021-04-08] MEDS: ALPRAZolam 0.25 MG TAB PO SCH ×2 (07:29→21:11)
[2021-04-08] MEDS: HYDROcodone/APAP 10-325MG 1 EACH TAB PO PRN (07:38)
--- NOTE | 2021-04-08 10:03 | P.PN ---
Progress Note - Text Progress Note Date: 04/08/21 The patient's current temperature is 99.2F. She denies flank pain. She desires removal of her Stein catheter. Urine and blood cultures have shown E. coli, resistant only to Bactrim and quinolones. She is being followed by Dr. Hollis, and it does not appear that she will require any urologic intervention. She will follow-up with me as an outpatient. Please notify us if we can be of any further assistance during this hospitalization.
[2021-04-08] MEDS: SODIUM CHLORIDE 0.9% 1,000 ML IV SCH (11:00)
--- NOTE | 2021-04-08 11:18 | P.PN ---
Subjective Progress Note Date: 04/08/21 Principal diagnosis: Bacteremia, UTI, septic shock This is a 68-year-old female, who presents to the emergency department, not feeling well. She apparently started off with right flank pain the morning of admission to the emergency department. Symptoms apparently progress. She was also having nausea and vomiting. She was feeling very weak. She apparently also was complaining of shortness of breath. No chest pain headache or dizziness. The patient denied any dysuria, hematuria, or foul-smelling urine. She had no fever or chills or other complaints. I was called by the ER physician who wanted to admit the patient to the intensive care unit for urinary tract infection/urosepsis, with hydronephrosis. Urology was notified. She apparently has a history of CAD, CVA, GERD, hypertension, myocardial infarction, cervical cancer, and low back pain. White count was 20.9, hemoglobin 13.4, hematocrit 39.3, platelet count 160,000. Sodium 135, potassium 3.5, chlorides 107, CO2 18, anion gap 10, BUN 27, creatinine 2.25. Lactic acid was initially 2.1 and then increased to 3.0. AST 115 ALT 75. Coronavirus testing was negative. Urine was turbid, with 3+ protein, large amount of blood, large positive leukocyte esterase, greater than 182 RBCs and WBCs, many white blood cell clumps. Chest x-ray revealed some interstitial infiltrates and atelectasis at the lung bases. A CT of the abdomen and pelvis revealed some interstitial infiltrates and emphysematous changes at the lung bases bilaterally, without any suspicious pulmonary masses. There is right-sided hydronephrosis and hydroureter with perinephric edema. No stone noted. Progress note dated 04/04/2021. 68-year-old female with a history of urinary tract infection/urosepsis, pyelonephritis, with hydronephrosis, and E. coli septic shock. Currently, patient's doing better. Her blood pressure is a little soft last night, so we gave her some additional fluids. She never required vasopressor. She is on 5 L nasal cannula. She's getting saline at 130 mL an hour. Her blood and urine was positive pressure recheck E. coli. She's currently on IV Rocephin. I read the note from the urologist, who does not anticipate any surgical intervention at this time. White count 11.9, hemoglobin 11, hematocrit 34.2, platelet count 83,000. Sodium 135, potassium 4.1, chlorides 111, CO2 19, anion gap is 5, BUN 25, creatinine 1.50. Chest x-ray shows nothing acute. A flatplate of the abdomen was done because of abdominal distention. Progress note dated 04/05/2021. 68-year-old female with history of Escherichia coli urinary tract infection/urosepsis, with hydronephrosis. Yesterday, the patient was a bit confused. She was complaining of abdominal distention and pain. She was seen by surgery. They are thinking that she probably has an ileus. The patient never required vasopressor. Currently, her breathing is much improved. She is on 5 L nasal cannula. She's getting saline at 30 mL an hour. She would like her Stein catheter removed. We'll run that past urology. She's currently on IV Rocephin. White count 10.3, heme him 10.6, hematocrit 33.6, platelet count of 66,000. Sodium 136, potassium 3.2, chlorides 110, CO2 20, anion gap 6. BUN is 21, creatinine 1.21. Abdomen and pelvic CT as well as abdominal and bladder ultrasound are reviewed. Progress note dated 04/06/2021. 68-year-old female with history of Escherichia coli urinary tract infection/urosepsis, with hydronephrosis, and emphysematous pyelonephritis. The patient is doing well. She is on 5 L nasal cannula. She's getting saline at 30 mL an hour. She is seen this morning in room 253. She has no major complaints. She was hoping to get the Stein catheter out, but urology feels that the catheter should stay again for the time being. She has no major complaints today other than the Stein catheter. Current laboratory data from April 06 is currently pending. No x-ray today. Progress note dated 04/07/2021. 68-year-old female seen again in room 521. The patient has a history of Escherichia coli urinary tract infection/urosepsis, with hydronephrosis, and emphysematous pyelonephritis. Currently, the patient is doing well. She is on no IV fluids. She is receiving nasal O2 at 4 L. She has no major complaints and she is resting comfortably. Blood and urine sampling is positive for Escherichia coli. The patient remains on Rocephin. Laboratory data from today includes a white count 10.1, hemoglobin 10.7, hematocrit 31.4, and a platelet count of 84,000. Sodium 133, potassium 3.2, chlorides 107, CO2 20, anion gap, BUN, and creatinine are all normal. The patient is seen today 04/08/2021 in follow-up on the regular medical floor. She is currently resting comfortably in bed. Awake and alert in no acute distress. She is oriented to person and place. Maintaining O2 saturations in the mid 90s on 2 L. Temperature 99.2. Hemodynamically stable. She is stating that is the year 2018. Urine and blood cultures were positive for E. coli. Follow-up blood cultures are pending revealing no growth to date. White count 10.1. Hemoglobin 10.7. Platelets 84,000. Sodium 133. Potassium 3.2. Creatinine 0.92. C. diff negative. She remains on ceftriaxone. Objective - Vital Signs Vital signs: Vital Signs Temp 99.2 F 04/08/21 04:17 Pulse 96 04/08/21 08:00 Resp 18 04/08/21 08:00 BP 151/78 04/08/21 04:17 Pulse Ox 95 04/08/21 07:23 Intake & Output 04/07/21 04/08/21 04/08/21 18:59 06:59 18:59 Intake Total 720 240 Output Total 1000 1700 Balance -280 -1460 Intake: Intake, IV Titration 240 Amount Sodium Chloride 0.9% 1, 240 000 ml @ 30 mls/hr IV . Q24H COUNTS INCLUDE 234 BEDS AT THE [facility] Rx#:[id number] Oral 720 Output: Urine 1000 1700 Other: Voiding Method Indwelling Catheter Indwelling Catheter Bedside Commode # Bowel Movements 2 - Exam GENERAL EXAM: Alert, alert oriented 2, 60-year-old female patient, and 2 L nasal cannula, comfortable in no apparent distress. HEAD: Normocephalic. EYES: Normal reaction of pupils, equal size. NOSE: Clear with pink turbinates. THROAT: No erythema or exudates. NECK: No masses, no JVD. CHEST: No chest wall deformity. LUNGS: Equal air entry with no crackles, wheeze, rhonchi or dullness. CVS: S1 and S2 normal with no audible murmur, regular rhythm. ABDOMEN: No hepatosplenomegaly, normal bowel sounds, no guarding or rigidity. SPINE: No scoliosis or deformity SKIN: No rashes CENTRAL NERVOUS SYSTEM: No focal deficits, tone is normal in all 4 extremities. EXTREMITIES: There is no peripheral edema. No clubbing, no cyanosis. Peripheral pulses are intact. - Labs CBC & Chem 7: 04/07/21 04:52 04/07/21 04:52 Labs: Abnormal Lab Results - Last 24 Hours (Table) 04/05/21 Range/Units 17:56 Methylmalonic Acid 0.57 H (<0.40) umol/L Microbiology - Last 24 Hours (Table) 04/05/21 04:12 Blood Culture - Preliminary Blood No Growth after 72 hours Assessment and Plan Assessment: 1 Acute emphysematous pyelonephritis with urosepsis/septic shock and evidence of hydronephrosis and hydroureter without obvious stone. 2 Escherichia coli urosepsis/septic shock with bacteremia. 3 Bibasilar atelectasis, doubt pneumonia. 4 History of CAD, status post stent placement. 5 History of CVA. 6 History of gastroesophageal reflux disease. 7 History of hypertension. 8 History of myocardial infarction. 9 History of cervical cancer. 10 History of ongoing tobacco use with nicotine addiction. Plan: The patient was seen and evaluated by Dr. Khan She is currently stable from the pulmonary and critical care standpoint Antibiotics per ID services We will see as needed I, the cosigning physician, performed a history & physical examination of the patient. Lungs sounds are clear. Maintaining good O2 saturations in the 90s on 2 L/m per nasal cannula. I discussed the assessment and plan of care with my nurse practitioner, Sita Dunn. I attest to the above note as dictated by her.
--- NOTE | 2021-04-08 11:22 | P.PN ---
Subjective Progress Note Date: 04/07/21 Principal diagnosis: Acute emphysematous pyelonephritis with urosepsis/septic shock with bacteremia Hydronephrosis and hydroureter without obvious stone. 68-year-old female, who presents to the emergency department, not feeling well. She apparently started off with right flank pain the morning of admission to the emergency department. Symptoms apparently progress. Patient was admitted for urinary tract infection/urosepsis, with hydronephrosis. Urology was notified. She apparently has a history of CAD, CVA, GERD, hypertension, myocardial infar ction, cervical cancer, and low back pain. White count was 20.9, hemoglobin 13.4, hematocrit 39.3, platelet count 160,000. Sodium 135, potassium 3.5, chlorides 107, CO2 18, anion gap 10, BUN 27, creatinine 2.25. Lactic acid was initially 2.1 and then increased to 3.0. AST 115 ALT 75. Coronavirus testing was negative. Urine was turbid, with 3+ protein, large amount of blood, large positive leukocyte esterase, greater than 182 RBCs and WBCs, many white blood cell clumps. Chest x-ray revealed some interstitial infiltrates and atelectasis at the lung bases. A CT of the abdomen and pelvis revealed some interstitial infiltrates and emphysematous changes at the lung bases bilaterally, without any suspicious pulmonary masses. There is right-sided hydronephrosis and hydroureter with perinephric edema. No stone noted. 04/07/2021 Patient with history of E. coli UTI/septic shock with hydronephrosis and pyelonephritis; remains on IV antibiotics in form of Rocephin Vital signs remained stable with a temperature of 98.3, pulse 104, respirations 16 and blood pressure 102/66 with SpO2 of 95% on 4 L Laboratory review shows a white blood count of 10.1, hemoglobin of 10.7, hematocrit 31.4 and platelet count of 84,000; sodium 133, potassium 3.0, chloride 107, CO2 20 and BUN and creatinine are within normal limits Patient continues to be followed by intensive care service and urology; continues to have episodes of confusion; psychiatry consult is placed and nathalia mmendations are pending Objective - Vital Signs Vital signs: Vital Signs Temp 99.2 F 04/07/21 13:26 Pulse 84 04/07/21 13:26 Resp 17 04/07/21 13:26 BP 138/76 04/07/21 13:26 Pulse Ox 98 04/07/21 13:26 Intake & Output 04/06/21 04/07/21 04/07/21 18:59 06:59 18:59 Intake Total 860 500 Output Total 1200 1000 Balance -340 -500 Intake: IV 360 .9 @ 130 mL/hr 360 Oral 500 500 Output: Urine 1200 1000 Other: Voiding Method Indwelling Catheter # Bowel Movements 1 - Exam No acute distress, oriented 3. Currently on 4 L nasal cannula. No respiratory distress, use of accessory muscles, or conversational dyspnea. Much more awake and appropriate today. HEENT examination is grossly unremarkable. Neck supple. Full range of motion. No adenopathy thyromegaly or neck vein distention. Cardiovascular examination reveals regular rhythm rate. S1-S2 normal. No S3 or S4. No discernible murmur noted. Heart rate 100. Lungs reveal mild scattered rhonchi. No wheezes or crackles. Breath sounds e qual bilaterally. Saturation 95% on 4 L. breath sounds in my opinion are improved. Abdomen mildly distended and tender. Bowel sounds are noted. No masses. Extremities are intact. No cyanosis clubbing or edema. Skin is without rash or lesion. Neurologic examination is brief but nonfocal. - Labs CBC & Chem 7: 04/07/21 04:52 04/07/21 04:52 Labs: Abnormal Lab Results - Last 24 Hours (Table) 04/05/21 04/05/21 04/06/21 Range/Units 17:56 17:56 04:59 RBC (3.80-5.40) m/uL Hgb (11.4-16.0) gm/dL Hct (34.0-46.0) % Plt Count (150-450) k/uL Haptoglobin 320.0 H (31.2-198.0) mg/dL Sodium (137-145) mmol/L Potassium (3.5-5.1) mmol/L Carbon Dioxide (22-30) mmol/L Alkaline Phosphatase 202 H (38-126) U/L Lactate Dehydrogenase 1208 H (313-618) U/L Total Protein 4.8 L (6.3-8.2) g/dL Albumin 2.4 L (3.5-5.0) g/dL Vitamin B12 1682.0 H 1378.0 H (200.0-944.0) pg/mL 04/07/21 04/07/21 Range/Units 04:52 04:52 RBC 3.23 L (3.80-5.40) m/uL Hgb 10.7 L (11.4-16.0) gm/dL Hct 31.4 L (34.0-46.0) % Plt Count 84 L (150-450) k/uL Haptoglobin (31.2-198.0) mg/dL Sodium 133 L (137-145) mmol/L Potassium 3.2 L (3.5-5.1) mmol/L Carbon Dioxide 20 L (22-30) mmol/L Alkaline Phosphatase 157 H (38-126) U/L Lactate Dehydrogenase (313-618) U/L Total Protein 4.7 L (6.3-8.2) g/dL Albumin 2.4 L (3.5-5.0) g/dL Vitamin B12 (200.0-944.0) pg/mL Microbiology - Last 24 Hours (Table) 04/05/21 04:12 Blood Culture - Preliminary Blood No Growth after 48 hours Assessment and Plan Assessment: 1. Acute emphysematous pyelonephritis with urosepsis/septic shock and evidence of hydronephrosis and hydroureter without obvious stone. - Patient remains on IV antibiotics in form of ceftriaxone for E. coli infection; urology on board and not recommending any surgical intervention at this time for emphysematous pyelonephritis - Patient did spike fever last night with a temperature of 101.8; no further episodes - Urology recommending to continue with IV antibiotics at this time; Stein catheter can be discontinued 2. Escherichia coli urosepsis/septic shock with bacteremia. - Blood culture is positive for E. coli; final culture and sensitivities pending; patient remains on IV Rocephin - Repeat blood culture is negative to date 3. Bibasilar atelectasis, doubt pneumonia; pulmonary service on board and no plans for any change in IV antibiotics for treatment of pneumonia. 4. History of CAD, status post stent placement; stable on beta blockers and statin therapy. 5. History of CVA; patient currently not on aspirin; patient is not able to tell; recommend starting patient on aspirin 81 mg daily unless contraindicated; continue with statin therapy in form of Lipitor 20 mg daily at bedtime. 6. Hyperlipidemia; Lipitor 20 mg by mouth daily at bedtime 7. Hypertension; stable on current dose of metoprolol 12.5 mg daily. 8. Agitation/confusion; patient is currently on Haldol 2 mg every 6 hours when necessary; await recommendations from psychiatry DVT prophylaxis; SCDs CODE STATUS; full code
[2021-04-08 13:48] LABS: Magnesium 1.5 mg/dL (1.6-2.3); Potassium 3.1 mmol/L (3.5-5.1)
[2021-04-08] MEDS: POTASSIUM CHLORIDE ER 20 MEQ TAB.ER PO SCH ×3 (14:14→23:35)
[2021-04-08] MEDS: MAGNESIUM SULFATE-D5W PMX 1 GM in DEXTROSE/WATER 1 100ML.BAG IVPB SCH ×2 (14:14→15:33)
[2021-04-08] MEDS: ATORVASTATIN 20 MG TAB PO SCH (21:11)
[2021-04-08 22:41] LABS: Potassium 3.4 mmol/L (3.5-5.1)
[2021-04-09] MEDS: HYDROcodone/APAP 10-325MG 1 EACH TAB PO PRN ×2 (00:53→07:47)
[2021-04-09] MEDS: POTASSIUM CHLORIDE ER 20 MEQ TAB.ER PO SCH (00:54)
--- NOTE | 2021-04-09 04:15 | P.PN ---
Subjective Progress Note Date: 04/08/21 Principal diagnosis: Acute emphysematous pyelonephritis with urosepsis/septic shock with bacteremia Hydronephrosis and hydroureter without obvious stone. 68-year-old female, who presents to the emergency department, not feeling well. She apparently started off with right flank pain the morning of admission to the emergency department. Symptoms apparently progress. Patient was admitted for urinary tract infection/urosepsis, with hydronephrosis. Urology was notified. She apparently has a history of CAD, CVA, GERD, hypertension, myocardial infar ction, cervical cancer, and low back pain. White count was 20.9, hemoglobin 13.4, hematocrit 39.3, platelet count 160,000. Sodium 135, potassium 3.5, chlorides 107, CO2 18, anion gap 10, BUN 27, creatinine 2.25. Lactic acid was initially 2.1 and then increased to 3.0. AST 115 ALT 75. Coronavirus testing was negative. Urine was turbid, with 3+ protein, large amount of blood, large positive leukocyte esterase, greater than 182 RBCs and WBCs, many white blood cell clumps. Chest x-ray revealed some interstitial infiltrates and atelectasis at the lung bases. A CT of the abdomen and pelvis revealed some interstitial infiltrates and emphysematous changes at the lung bases bilaterally, without any suspicious pulmonary masses. There is right-sided hydronephrosis and hydroureter with perinephric edema. No stone noted. 04/07/2021 Patient with history of E. coli UTI/septic shock with hydronephrosis and pyelonephritis; remains on IV antibiotics in form of Rocephin Vital signs remained stable with a temperature of 98.3, pulse 104, respirations 16 and blood pressure 102/66 with SpO2 of 95% on 4 L Laboratory review shows a white blood count of 10.1, hemoglobin of 10.7, hematocrit 31.4 and platelet count of 84,000; sodium 133, potassium 3.0, chloride 107, CO2 20 and BUN and creatinine are within normal limits Patient continues to be followed by intensive care service and urology; continues to have episodes of confusion; psychiatry consult is placed and nathalia mmendations are pending 04/08/2021 Patient is seen and evaluated in follow-up with RN at bedside; reporting a few episodes of diarrhea. She is currently resting comfortably in bed. Awake and alert in no acute distress. She is oriented to person and place. Maintaining O 2 saturations in the mid 90s on 2 L. Temperature 99.2. Hemodynamically stable. Urine and blood cultures were positive for E. coli. Follow-up blood cultures are pending revealing no growth to date. White count 10.1. Hemoglobin 10.7. Platelets 84,000. Sodium 133. Potassium 3.2. Creatinine 0.92. C. diff negative. She remains on ceftriaxone. Objective - Vital Signs Vital signs: Vital Signs Temp 99.2 F 04/08/21 04:17 Pulse 96 04/08/21 08:00 Resp 18 04/08/21 08:00 BP 151/78 04/08/21 04:17 Pulse Ox 95 04/08/21 07:23 Intake & Output 04/07/21 04/08/21 04/08/21 18:59 06:59 18:59 Intake Total 720 240 Output Total 1000 1700 Balance -280 -1460 Intake: Intake, IV Titration 240 Amount Sodium Chloride 0.9% 1, 240 000 ml @ 30 mls/hr IV . Q24H [facility] Rx#:[id number] Oral 720 Output: Urine 1000 1700 Other: Voiding Method Indwelling Catheter Indwelling Catheter Bedside Commode # Bowel Movements 2 - Exam No acute distress, oriented 3. Currently on 4 L nasal cannula. No respiratory distress, use of accessory muscles, or conversational dyspnea. Much more awake and appropriate today. HEENT examination is grossly unremarkable. Neck supple. Full range of motion. No adenopathy thyromegaly or neck vein distention. Cardiovascular examination reveals regular rhythm rate. S1-S2 normal. No S3 or S4. No discernible murmur noted. Heart rate 100. Lungs reveal mild scattered rhonchi. No wheezes or crackles. Breath sounds equal bilaterally. Saturation 95% on 4 L. breath sounds in my opinion are improved. Abdomen mildly distended and tender. Bowel sounds are noted. No masses. Extremities are intact. No cyanosis clubbing or edema. Skin is without rash or lesion. Neurologic examination is brief but nonfocal. - Labs CBC & Chem 7: 04/07/21 04:52 04/08/21 22:01 Labs: Abnormal Lab Results - Last 24 Hours (Table) 04/05/21 Range/Units 17:56 Methylmalonic Acid 0.57 H (<0.40) umol/L Microbiology - Last 24 Hours (Table) 04/05/21 04:12 Blood Culture - Preliminary Blood No Growth after 72 hours Assessment and Plan Assessment: 1. Acute emphysematous pyelonephritis with urosepsis/septic shock and evidence of hydronephrosis and hydroureter without obvious stone. - Patient remains on IV antibiotics in form of ceftriaxone for E. coli infection; urology on board and not recommending any surgical intervention at this time for emphysematous pyelonephritis - Patient did spike fever last night with a temperature of 101.8; no further episodes - Urology recommending to continue with IV antibiotics at this time; Stein catheter can be discontinued 2. Escherichia coli urosepsis/septic shock with bacteremia. - Blood culture is positive for E. coli; final culture and sensitivities pending; patient remains on IV Rocephin - Repeat blood culture is negative to date 3. Bibasilar atelectasis, doubt pneumonia; pulmonary service on board and no plans for any change in IV antibiotics for treatment of pneumonia. 4. History of CAD, status post stent placement; stable on beta blockers and statin therapy. 5. History of CVA; patient currently not on aspirin; patient is not able to tell; recommend starting patient on aspirin 81 mg daily unless contraindicated; continue with statin therapy in form of Lipitor 20 mg daily at bedtime. 6. Hyperlipidemia; Lipitor 20 mg by mouth daily at bedtime 7. Hypertension; stable on current dose of metoprolol 12.5 mg daily. 8. Agitation/confusion; patient is currently on Haldol 2 mg every 6 hours when necessary; await recommendations from psychiatry DVT prophylaxis; SCDs CODE STATUS; full code
[2021-04-09 05:47] LABS: Basophils # (A) 0.1 k/uL (0-0.2); Basophils % (A) 1 %; Eosinophils # (A) 0.1 k/uL (0-0.7); Eosinophils % (A) 0 %; HCT 33.1 % (34.0-46.0); HGB 11.1 gm/dL (11.4-16.0); Lymphocytes # (A) 2.8 k/uL (1.0-4.8); Lymphocytes % (A) 16 %; MCH 33.1 pg (25.0-35.0); MCHC 33.7 g/dL (31.0-37.0); MCV 98.3 fL (80.0-100.0); Mean Platelet Volume 9.1; Monocytes # (A) 0.9 k/uL (0-1.0); Monocytes % (A) 5 %; Neutrophils % (A) 75 %; RBC 3.36 m/uL (3.80-5.40); RDW 13.9 % (11.5-15.5); WBC 17.4 k/uL (3.8-10.6)
[2021-04-09 05:52] LABS: Platelet Count 150 k/uL (150-450)
--- NOTE | 2021-04-09 06:04 | PN ---
PROGRESS NOTE DATE OF SERVICE: 04/08/2021 REASON FOR FOLLOWUP: E coli urinary tract infection and bacteremia. INTERVAL HISTORY: Patient did spike another fever this evening of 101 degrees Fahrenheit. This morning, the patient was afebrile. She was breathing comfortably. Denies having any chest pain, cough, no abdominal pain. No diarrhea. PHYSICAL EXAMINATION: Her blood pressure is 136/73, pulse of 97. Temperature 101.2. She is 95% on room air. General description is a middle-aged female lying in bed in no distress. Respiratory system: Unlabored breathing. Clear to auscultation anteriorly. Heart S1, S2. Regular rate and rhythm. Abdomen soft, no tenderness. Extremities: No edema of the feet. LABS: The patient white count has normalized. Blood cultures have been negative. DIAGNOSTIC IMPRESSION AND PLAN: Patient with E coli urinary tract infection with secondary bacteremia, complicated urinary tract infection, now with new fever is slightly concerning. Blood cultures will be repeated. Kidney function will be monitored. Continue with Rocephin. Continue supportive care. MMODL / IJN: [id number] /
[2021-04-09 06:06] LABS: African American GFR (CKD) >90 (>60 ml/min/1.73 sqM); Anion Gap 7 mmol/L; Blood Urea Nitrogen 11 mg/dL (7-17); Calcium 8.7 mg/dL (8.4-10.2); Carbon Dioxide 20 mmol/L (22-30); Chloride 106 mmol/L (98-107); Glucose 97 mg/dL (74-99); Non-African American GFR(CKD) 78 (>60 ml/min/1.73 sqM); Potassium 4.1 mmol/L (3.5-5.1); Sodium 133 mmol/L (137-145)
[2021-04-09] MEDS: METOPROLOL SUCCINATE (ER) 25 MG TAB.ER.24H PO SCH (07:47)
[2021-04-09] MEDS: ALPRAZolam 0.25 MG TAB PO SCH ×2 (07:47→20:49)
[2021-04-09] MEDS: GABAPENTIN 400 MG CAP PO SCH ×3 (07:47→21:43)
[2021-04-09] MEDS: PANTOPRAZOLE 40 MG TABLET PO SCH (07:47)
[2021-04-09] MEDS: CHOLECALCIFEROL 25 MCG (1000 IU) TABLET PO SCH (07:47)
[2021-04-09] MEDS: IPRATROPIUM-ALBUTEROL 3 ML NEB INHALATION SCH ×3 (08:10→19:33)
[2021-04-09 13:56] VITALS: BMI 25.2
[2021-04-09 14:50] LABS: Color,Urine Light Yellow
[2021-04-09 14:51] LABS: Appearance,Urine Clear (Clear); Bilirubin,Urine Negative (Negative); Blood,Urine 3 (Negative); Glucose,Urine (UA) Negative (Negative); Ketones,Urine Negative (Negative); Leukocyte Esterase,Urine Small (Negative); Nitrite,Urine Negative (Negative); Protein,Urine 1+ (Negative); Specific Gravity,Urine 1.015 (1.001-1.035); Urobilinogen,Urine <0.2 mg/dL (<2.0)
[2021-04-09 14:52] LABS: Mucus,Urine Rare /hpf; RBC,Urine 15 /hpf (0-5); Squamous Epithelial Cell,Urine 1 /hpf (0-4); WBC,Urine 36 /hpf (0-5)
--- NOTE | 2021-04-09 15:07 | US ---
EXAMINATION TYPE: US kidneys/renal and bladder DATE OF EXAM: 04/09/2021 COMPARISON: US 04/04/21, 07/25/17, CT 04/04/21 CLINICAL HISTORY: uti and bacteremia. EXAM MEASUREMENTS: Right Kidney: 12.7 x 6.1 x 6.0 cm cm Left Kidney: 12.1 x 4.8 x 4.6 cm Post Void Residual Volume: Not calculated on this inpatient Right Kidney: dilated renal pelvis (2.1 cm) with internal echos Left Kidney: No hydronephrosis or masses seen Bladder: wnl Bilateral Jets seen: Yes No nephrolithiasis is seen. No masses are identified. The urinary bladder is anechoic. Bilateral u reteral jets are seen. IMPRESSION: Mild right pelviectasis.
--- NOTE | 2021-04-09 15:33 | P.PN ---
Subjective Progress Note Date: 04/09/21 Oxygenation did decreased today, afebrile. Otherwise CBC stable and no other noted acute changes. Objective - Vital Signs Vital signs: Vital Signs Temp 98.2 F 04/09/21 05:02 Pulse 93 04/09/21 05:02 Resp 24 04/09/21 05:02 BP 101/66 04/09/21 05:02 Pulse Ox 89 L 04/09/21 05:02 Intake & Output 04/08/21 04/09/21 04/09/21 18:59 06:59 18:59 Intake Total 620 360 Output Total 400 Balance 220 360 Intake: IV 360 .9 @ 130 mL/hr 360 Oral 620 Output: Urine 400 Other: Voiding Method Bedside Commode Bedside Commode Bedside Commode - Exam - Constitutional General appearance: average body habitus, cooperative, no acute distress - EENT no wet purpura Eyes: anicteric sclerae, EOMI ENT: hearing grossly normal, normal oropharynx - Neck Neck: no lymphadenopathy - Respiratory Respiratory: bilateral: CTA - Cardiovascular Rhythm: regular Heart sounds: normal: S1, S2 Abnormal Heart Sounds: no systolic murmur, no diastolic murmur, no rub, no S3 Gallop, no S4 Gallop, no click, no other leg Peripheral Edema: bilateral: None - Gastrointestinal fullness in the upper quadrants, no rebound General gastrointestinal: distended, normal bowel sounds, soft - Integumentary no petechiae on the chest, abdomen, legs. She does have a few bruises on the forearms, no hematomas. No blood around IV insertion site, no gross blood visible in Stein - Neurologic Neurologic: CNII-XII intact - Musculoskeletal Musculoskeletal: strength equal bilaterally - Psychiatric Psychiatric: A&O x's 3, appropriate affect, intact judgment & insight - Labs CBC & Chem 7: 04/09/21 04:44 04/09/21 04:44 Labs: Abnormal Lab Results - Last 24 Hours (Table) 04/08/21 04/08/21 04/08/21 Range/Units 12:38 22:01 23:29 WBC (3.8-10.6) k/uL RBC (3.80-5.40) m/uL Hgb (11.4-16.0) gm/dL Hct (34.0-46.0) % Neutrophils # (1.3-7.7) k/uL Sodium (137-145) mmol/L Potassium 3.1 L 3.4 L (3.5-5.1) mmol/L Carbon Dioxide (22-30) mmol/L Magnesium 1.5 L (1.6-2.3) mg/dL C-Reactive Protein 22.6 H (<1.0) mg/dL 04/09/21 04/09/21 Range/Units 04:44 04:44 WBC 17.4 H (3.8-10.6) k/uL RBC 3.36 L (3.80-5.40) m/uL Hgb 11.1 L (11.4-16.0) gm/dL Hct 33.1 L (34.0-46.0) % Neutrophils # 13.0 H (1.3-7.7) k/uL Sodium 133 L (137-145) mmol/L Potassium (3.5-5.1) mmol/L Carbon Dioxide 20 L (22-30) mmol/L Magnesium (1.6-2.3) mg/dL C-Reactive Protein (<1.0) mg/dL Microbiology - Last 24 Hours (Table) 04/05/21 04:12 Blood Culture - Preliminary Blood No Growth after 96 hours Assessment and Plan Plan: CT scan - abdomen: report reviewed CT scan - pelvis: report reviewed Assessment and Plan (1) Thrombocytopenia Current Visit: Yes Status: Acute Priority: High Code(s): D69.6 - THROMBOCYTOPENIA, UNSPECIFIED SNOMED Code(s): 682273305 (2) Normocytic normochromic anemia Current Visit: Yes Status: Acute Priority: High Code(s): D64.9 - ANEMIA, UNSPECIFIED SNOMED Code(s): 76471760 Plan: - COntinue to monitor CBC, stable at this time, no intervention required Physician Attest": I have completed the full history and physical and agree with above dictation, dictated as a ascribe
--- NOTE | 2021-04-09 15:45 | P.PN ---
Subjective Progress Note Date: 04/09/21 This is 60-year-old female with a past medical history of coronary artery disease, CVA, GERD, hypertension, MT, and nicotine dependence, presented to the ER with complaints of right flank pain radiating to the groin that started earlier in the a.m. accompanied by nausea, vomiting, weakness and shortness of breath. Denies fever or chills. Denies any chest pain, palpitations. Denies any lightheadedness, dizziness or focal deficits. Hypertensive, tachycardic, febrile with borderline hypoxia on admission.WBC 20.9, hemoglobin 11.4, platelets 117. Lactic acid 3.8, 2.1, 3.0. Became Hypotensive, received a total of 4 L of IV fluids. Currently lactic acid decreased to 1.8. requiring 5 L nasal cannula and maintaining O2 sats in the 90s. Chest x-ray reported mild interstitial infiltrates, subsegmental atelectasis at bilateral bases similar to prior exam. CT of abdomen and pelvis reported right sided hydronephrosis and hydroureter with perinephric edema that could relate to non-opaque obstructing stone or recently passed stone. Common bile duct large, measuring up to 13 mm. sodium 135, potassium 4.4 BUN 30, creatinine 1.93. Magnesium 1.4, repeat level pending. Elevated LFTs, improving .UA reporting greater than 182 WBCs, large leukocytes, negative nitrate. Urine and blood cultures obtained .Maintained on IV fluids and IV antibiotics. Evaluated by urology, with no surgical intervention recommended at this time. IV fluids and IV antibiotics of ceftriaxone initiated 04/04/2021 maintained on IV fluid resuscitation of 130 MLS per hour, Rocephin. Positive bowel movement yesterday. Complaining of persistent right flank pain, radiating to mid abdomen. Renal function improving, creatinine down to 1.5. Currently afebrile, T-max 100.1. preliminary blood cultures reporting E. coli, p reliminary urine culture reporting gram-negative bacilli. WBC decreased to 11.9. Mild tachycardia.Denies chest pain, palpitations or shortness of breath. Denies lightheadedness, dizziness or focal deficits. Maintaining O2 sats in the 90s on 5 L nasal cannula. Chest x-ray reporting chronic perforation while changes without acute pulmonary process. Hemoglobin 11, platelets 83. 04/05/2021 Patient had been receiving fluid resuscitation, possible mild fluid overload, IV fluids decreased, received a dose of Lasix IV push, diuresed well with 24-hour I&O reflecting a negative fluid balance .requesting Stein catheter be discontinued, defer to urology. Evaluated by surgery regarding worsening abdominal pain/distention, radiology studies reviewed,attributed to an ileus. Urine with E. coli ,Bacteremic with E. coli , evaluated by infectious disease. Repeat blood culture in progress. Continues on IV antibiotics. T-max of 102.2, WBC within normal limits. Hemoglobin 10.6, Platelets continue trending down ,66. Potassium 3.2, creatinine down to 1.21. No further diarrhea. 04/06/2021 maintaining O2 sats in the 90s on 5 L nasal cannula. Antibiotics as ID. T-max 100.8, and WBC 11.2. Hemoglobin 11, platelets 72. Sodium 132, potassium 3.4-receiving supplementation, bicarb 21. Renal function improving, creatinine down to 0.98. Positive diarrhea, tested negative for C. diff. tolerating full liquid diet, denies nausea or vomiting. Denies abdominal pain. Denies chest pain, palpitations or shortness of breath. Denies lightheadedness, dizziness or focal deficits. 04/09/2021 urine and blood cultures positive for E. coli. maintained on IV antibiotics of Rocephin as per infectious disease. Renal function stable. T-max 101.2, WBC 17.4. Denies any cough, congestion. Denies any nausea vomiting or diarrhea. Denies any chest pain, palpitations. Staff reports patient ambulatin g with assistance to and from bathroom, tolerating exertion well. Alert and oriented 3. Staff reports occasionally disoriented upon awakening, but then quickly resolves. Evaluated by psychiatry with recommendations noted and appreciated. Denies lightheadedness, dizziness or focal deficits. Denies chest pain, palpitations or shortness of breath. Objective - Vital Signs Vital signs: Vital Signs Temp 97.8 F 04/09/21 11:36 Pulse 80 04/09/21 11:36 Resp 20 04/09/21 11:36 BP 138/70 04/09/21 11:36 Pulse Ox 96 04/09/21 11:36 Intake & Output 04/08/21 04/09/21 04/09/21 18:59 06:59 18:59 Intake Total 620 360 Output Total 400 Balance 220 360 Weight 71 kg Intake: IV 360 .9 @ 130 mL/hr 360 Oral 620 Output: Urine 400 Other: Voiding Method Bedside Commode Bedside Commode Bedside Commode # Voids 1 - Exam PHYSICAL EXAM: VITAL SIGNS: As above GENERAL: Sitting up in chair, droggy this am, no acute distress HEENT: Conjunctivae normal. eyes normal. NECK: No JVD. No thyroid enlargement. No LNs CARDIOVASCULAR: S1, S2 regular.. No murmur, mild tachycardia RESPIRATION: Breath sounds diminished in the bases. ABDOMEN: Soft, mildly distended, disffuse tenderness,No guarding. Positive bowel sounds. LEGS: No edema. no swelling PSYCHIATRY: Alert and oriented X3, mood and affect normal. NERVOUS SYSTEM: Cranial N 2-12 grossly normal. Moves all 4 limbs. Diffuse weakness,No focal deficits. Strength and sensation grossly intact. Skin: Warm and dry, no rash Microbiology 04/02/21 21:40 Blood Blood Culture Gram Stain - Final 04/02/21 21:40 Blood Blood Culture - Final Escherichia coli 04/02/21 21:55 Blood Blood Culture Gram Stain - Final 04/02/21 21:55 Blood Blood Culture - Final Escherichia coli 04/02/21 20:50 Urine,Clean Catch Urine Culture - Final Escherichia coli 04/02/21 21:40 Blood Blood Culture - Final 04/02/21 21:55 Blood Blood Culture - Final - Labs CBC & Chem 7: 04/09/21 04:44 04/09/21 04:44 Labs: Abnormal Lab Results - Last 24 Hours (Table) 04/07/21 04/08/21 04/08/21 Range/Units 04:52 22:01 23:29 WBC (3.8-10.6) k/uL RBC (3.80-5.40) m/uL Hgb (11.4-16.0) gm/dL Hct (34.0-46.0) % Neutrophils # (1.3-7.7) k/uL Haptoglobin 333.0 H (31.2-198.0) mg/dL Sodium (137-145) mmol/L Potassium 3.4 L (3.5-5.1) mmol/L Carbon Dioxide (22-30) mmol/L C-Reactive Protein 22.6 H (<1.0) mg/dL Urine Protein (Negative) Urine RBC (0-5) /hpf Urine WBC (0-5) /hpf Urine Mucus (None) /hpf 04/09/21 04/09/21 04/09/21 Range/Units 04:44 04:44 14:30 WBC 17.4 H (3.8-10.6) k/uL RBC 3.36 L (3.80-5.40) m/uL Hgb 11.1 L (11.4-16.0) gm/dL Hct 33.1 L (34.0-46.0) % Neutrophils # 13.0 H (1.3-7.7) k/uL Haptoglobin (31.2-198.0) mg/dL Sodium 133 L (137-145) mmol/L Potassium (3.5-5.1) mmol/L Carbon Dioxide 20 L (22-30) mmol/L C-Reactive Protein (<1.0) mg/dL Urine Protein 1+ H (Negative) Urine RBC 15 H (0-5) /hpf Urine WBC 36 H (0-5) /hpf Urine Mucus Rare H (None) /hpf Microbiology - Last 24 Hours (Table) 04/05/21 04:12 Blood Culture - Preliminary Blood No Growth after 96 hours Assessment and Plan Assessment: Sepsis with Septic shock secondary to acute right pyelonephritis, right hydroureteronephrosis -etiology unclear, bacteremia and UTI, present on admission, Acute UTI with E. coli Bacteremia with E. coli Acute metabolic encephalopathy secondary to all the above ileus, resolved Acute renal failure, improving Bibasilar atelectasis, Thrombocytopenia of unclear etiology, possibly related to sepsis, hematology following, CAD, history of MT Gastroesophageal reflux disease History of CVA History of cervical cancer Anxiety Depression Ongoing nicotine dependence Plan: Continue on current medication regime ,monitoring and symptomatic treatment. Antibiotics as per ID. abdominal/bladder ultrasound pending. PT/OT. Prognosis guarded given multiple complex medical issues. The impression and plan of care has been dictated as directed. : I performed a history and examination of this patient, discussed the same with the dictator. I agree with the dictator's note ,documented as a scribe. Any additional findings or plans will be noted.
[2021-04-09] MEDS: SODIUM CHLORIDE 0.9% 1,000 ML IV SCH (16:25)
[2021-04-09] MEDS: ACETAMINOPHEN TAB 325 MG TAB PO PRN (19:22)
--- NOTE | 2021-04-09 19:49 | PN ---
PROGRESS NOTE DATE OF SERVICE: 04/09/2021. REASON FOR FOLLOW UP: E coli UTI and bacteremia. INTERVAL HISTORY: Patient did spike a fever of 100.4 last night. The patient afebrile since then. The patient currently denies having any chest pain. No shortness of breath or cough. No nausea, no vomiting. No abdominal pain or diarrhea. PHYSICAL EXAMINATION: Blood pressure 138/70 with a pulse of 80. Temperature is 97.8. She is 96% on 2 L nasal cannula. General description is a middle-aged female lying in bed in no distress. Respiratory system: Unlabored breathing, decreased breath sounds at the bases. No wheeze. Heart S1, S2. Regular rate and rhythm. ABDOMEN: Soft, no tenderness. LABS: Hemoglobin 11.1, white count 17.4, BUN of 11, creatinine 0.82. DIAGNOSTIC IMPRESSION AND PLAN: Patient with E coli bacteremia secondary to urinary source in this patient now with worsening of the white count as well as a fever. We will repeat an ultrasound to make sure no evidence of any worsening of hydronephrosis. We will also check a post-void residual and repeat UA. Continue with Rocephin. Repeat CBC tomorrow and monitor clinical course closely. MMODL / IJN: [id number] /
[2021-04-09] MEDS: ATORVASTATIN 20 MG TAB PO SCH (20:49)
[2021-04-10] MEDS: ACETAMINOPHEN TAB 325 MG TAB PO PRN (06:12)
[2021-04-10] MEDS: METOPROLOL SUCCINATE (ER) 25 MG TAB.ER.24H PO SCH (07:22)
[2021-04-10] MEDS: CHOLECALCIFEROL 25 MCG (1000 IU) TABLET PO SCH (07:23)
[2021-04-10] MEDS: GABAPENTIN 400 MG CAP PO SCH ×3 (07:23→21:21)
[2021-04-10] MEDS: ALPRAZolam 0.25 MG TAB PO SCH ×2 (07:23→21:21)
[2021-04-10] MEDS: PANTOPRAZOLE 40 MG TABLET PO SCH (07:23)
[2021-04-10] MEDS: NICOTINE 14MG/24HR PATCH TRANSDERM SCH (07:24)
[2021-04-10] MEDS: IPRATROPIUM-ALBUTEROL 3 ML NEB INHALATION PRN (08:16)
[2021-04-10] MEDS: IPRATROPIUM-ALBUTEROL 3 ML NEB INHALATION SCH ×3 (08:26→19:08)
[2021-04-10] MEDS: HYDROcodone/APAP 5-325MG 1 EACH TAB PO PRN ×2 (11:54→21:21)
[2021-04-10] MEDS: SODIUM CHLORIDE 0.9% 1,000 ML IV SCH (11:55)
--- NOTE | 2021-04-10 16:10 | P.PN ---
Subjective Progress Note Date: 04/10/21 This is 60-year-old female with a past medical history of coronary artery disease, CVA, GERD, hypertension, NE, and nicotine dependence, presented to the ER with complaints of right flank pain radiating to the groin that started earlier in the a.m. accompanied by nausea, vomiting, weakness and shortness of breath. Denies fever or chills. Denies any chest pain, palpitations. Denies any lightheadedness, dizziness or focal deficits. Hypertensive, tachycardic, febrile with borderline hypoxia on admission.WBC 20.9, hemoglobin 11.4, platelets 117. Lactic acid 3.8, 2.1, 3.0. Became Hypotensive, received a total of 4 L of IV fluids. Currently lactic acid decreased to 1.8. requiring 5 L nasal cannula and maintaining O2 sats in the 90s. Chest x-ray reported mild interstitial infiltrates, subsegmental atelectasis at bilateral bases similar to prior exam. CT of abdomen and pelvis reported right sided hydronephrosis and hydroureter with perinephric edema that could relate to non-opaque obstructing stone or recently passed stone. Common bile duct large, measuring up to 13 mm. sodium 135, potassium 4.4 BUN 30, creatinine 1.93. Magnesium 1.4, repeat level pending. Elevated LFTs, improving .UA reporting greater than 182 WBCs, large leukocytes, negative nitrate. Urine and blood cultures obtained .Maintained on IV fluids and IV antibiotics. Evaluated by urology, with no surgical intervention recommended at this time. IV fluids and IV antibiotics of ceftriaxone initiated 04/04/2021 maintained on IV fluid resuscitation of 130 MLS per hour, Rocephin. Positive bowel movement yesterday. Complaining of persistent right flank pain, radiating to mid abdomen. Renal function improving, creatinine down to 1.5. Currently afebrile, T-max 100.1. preliminary blood cultures reporting E. coli, p reliminary urine culture reporting gram-negative bacilli. WBC decreased to 11.9. Mild tachycardia.Denies chest pain, palpitations or shortness of breath. Denies lightheadedness, dizziness or focal deficits. Maintaining O2 sats in the 90s on 5 L nasal cannula. Chest x-ray reporting chronic perforation while changes without acute pulmonary process. Hemoglobin 11, platelets 83. 04/05/2021 Patient had been receiving fluid resuscitation, possible mild fluid overload, IV fluids decreased, received a dose of Lasix IV push, diuresed well with 24-hour I&O reflecting a negative fluid balance .requesting Stein catheter be discontinued, defer to urology. Evaluated by surgery regarding worsening abdominal pain/distention, radiology studies reviewed,attributed to an ileus. Urine with E. coli ,Bacteremic with E. coli , evaluated by infectious disease. Repeat blood culture in progress. Continues on IV antibiotics. T-max of 102.2, WBC within normal limits. Hemoglobin 10.6, Platelets continue trending down ,66. Potassium 3.2, creatinine down to 1.21. No further diarrhea. 04/06/2021 maintaining O2 sats in the 90s on 5 L nasal cannula. Antibiotics as ID. T-max 100.8, and WBC 11.2. Hemoglobin 11, platelets 72. Sodium 132, potassium 3.4-receiving supplementation, bicarb 21. Renal function improving, creatinine down to 0.98. Positive diarrhea, tested negative for C. diff. tolerating full liquid diet, denies nausea or vomiting. Denies abdominal pain. Denies chest pain, palpitations or shortness of breath. Denies lightheadedness, dizziness or focal deficits. 04/09/2021 urine and blood cultures positive for E. coli. maintained on IV antibiotics of Rocephin as per infectious disease. Renal function stable. T-max 101.2, WBC 17.4. Denies any cough, congestion. Denies any nausea vomiting or diarrhea. Denies any chest pain, palpitations. Staff reports patient ambulatin g with assistance to and from bathroom, tolerating exertion well. Alert and oriented 3. Staff reports occasionally disoriented upon awakening, but then quickly resolves. Evaluated by psychiatry with recommendations noted and appreciated. Denies lightheadedness, dizziness or focal deficits. Denies chest pain, palpitations or shortness of breath. 04/10/2021 IV antibiotics as per ID. T-max 101.1. Repeat Urine culture pending. Repeat blood cultures of 04/08 reporting no growth at 24 hours. Completed repeat renal/bladder ultrasound reporting no hydronephrosis or masses of left kidney, mild right pelviectasis, bladder within normal limits. Alert and oriented 3. Ambulating, tolerating exertion well. Maintaining O2 sats in the high 90s on 2 L nasal cannula. Denies chest pain, palpitations or shortness of breath. Denies lightheadedness, dizziness or focal deficits. Objective - Vital Signs Vital signs: Vital Signs Temp 98.7 F 04/10/21 11:31 Pulse 100 04/10/21 12:04 Resp 16 04/10/21 11:31 BP 117/69 04/10/21 11:31 Pulse Ox 98 04/10/21 11:31 Intake & Output 04/09/21 04/10/21 04/10/21 18:59 06:59 18:59 Intake Total 290 120 240 Output Total 1250 Balance 290 -1130 240 Weight 71 kg Intake: Intake, IV Titration 290 Amount Sodium Chloride 0.9% 1, 240 000 ml @ 30 mls/hr IV . Q24H [facility] Rx#:[id number] cefTRIAXone 2 gm In 50 Sodium Chloride 0.9% 50 ml @ 100 mls/hr IVPB Q24HR [facility] Rx#:[id number] Oral 120 240 Output: Urine 1250 Other: Voiding Method Bedside Commode Bedside Commode # Voids 4 1 # Bowel Movements 1 1 - Exam PHYSICAL EXAM: VITAL SIGNS: As above GENERAL: Alert and oriented 3, Sitting up in chair, no acute distress HEENT: Conjunctivae normal. eyes normal. Oral mucosa moist CARDIOVASCULAR: S1, S2 regular.. No murmur RESPIRATION: CTA with bilateral bases diminished ABDOMEN: Soft, nontender, No guarding. Positive bowel sounds. LEGS: No edema. no swelling NERVOUS SYSTEM: Cranial N 2-12 grossly normal. Moves all 4 limbs. No focal deficits. Strength and sensation grossly intact. Skin: Warm and dry, no rash Microbiology 04/05/21 04:12 Blood Blood Culture - Preliminary No Growth after 120 hours 04/08/21 23:29 Blood Blood Culture - Preliminary No Growth after 24 hours 04/08/21 22:01 Blood Blood Culture - Preliminary No Growth after 24 hours 04/09/21 14:30 Urine,Voided Urine Culture - Preliminary 04/02/21 21:40 Blood Blood Culture Gram Stain - Final 04/02/21 21:40 Blood Blood Culture - Final Escherichia coli 04/02/21 21:55 Blood Blood Culture Gram Stain - Final 04/02/21 21:55 Blood Blood Culture - Final Escherichia coli 04/02/21 20:50 Urine,Clean Catch Urine Culture - Final Escherichia coli 04/02/21 21:40 Blood Blood Culture - Final 04/02/21 21:55 Blood Blood Culture - Final - Labs CBC & Chem 7: 04/09/21 04:44 04/09/21 04:44 Labs: Microbiology - Last 24 Hours (Table) 04/05/21 04:12 Blood Culture - Preliminary Blood No Growth after 120 hours 04/08/21 23:29 Blood Culture - Preliminary Blood No Growth after 24 hours 04/08/21 22:01 Blood Culture - Preliminary Blood No Growth after 24 hours 04/09/21 14:30 Urine Culture - Preliminary Urine,Voided Assessment and Plan Assessment: Sepsis with Septic shock secondary to acute right pyelonephritis, right hydroureteronephrosis -etiology unclear, bacteremia and UTI, present on admission, Acute UTI with E. coli Bacteremia with E. coli Acute metabolic encephalopathy secondary to all the above ileus, resolved Acute renal failure, improving Bibasilar atelectasis, Thrombocytopenia of unclear etiology, possibly related to sepsis, hematology following, CAD, history of NE Gastroesophageal reflux disease History of CVA History of cervical cancer Anxiety Depression Ongoing nicotine dependence Plan: Continue on current medication regime ,monitoring and symptomatic treatment. Labs pending. Repeat Urine culture pending.Antibiotics as per ID.PT/OT. Yesterday,family concerned regarding disorientation/confusion, which can be attributed to infection, dehydration, analgesics, and anoxioytics.Patient's home meds include Xanax and [place] 10. Decreasing [place] dose as patient does not appear to be tolerating home dose. Discharge planning in progress, pending afebrile 24 hour, and final DC recommendations and clearance from ID. Prognosis guarded given multiple complex medical issues. The impression and plan of care has been dictated as directed. : I performed a history and examination of this patient, discussed the same with the dictator. I agree with the dictator's note ,documented as a scribe. Any additional findings or plans will be noted.
[2021-04-10 16:19] LABS: HCT 29.6 % (34.0-46.0); MCH 33.5 pg (25.0-35.0); MCHC 33.8 g/dL (31.0-37.0); MCV 99.2 fL (80.0-100.0); Mean Platelet Volume 9.9; Platelet Count 186 k/uL (150-450); RBC 2.98 m/uL (3.80-5.40); RDW 13.9 % (11.5-15.5); WBC 13.2 k/uL (3.8-10.6)
[2021-04-10 16:29] LABS: African American GFR (CKD) >90 (>60 ml/min/1.73 sqM); Anion Gap 8 mmol/L; Blood Urea Nitrogen 11 mg/dL (7-17); Calcium 8.6 mg/dL (8.4-10.2); Carbon Dioxide 22 mmol/L (22-30); Chloride 105 mmol/L (98-107); Glucose 125 mg/dL (74-99); Non-African American GFR(CKD) 83 (>60 ml/min/1.73 sqM); Sodium 135 mmol/L (137-145)
--- NOTE | 2021-04-10 17:07 | PN ---
PROGRESS NOTE DATE OF SERVICE: 04/10/2021 REASON FOR FOLLOWUP: 1. E coli bacteremia secondary to complicated UTI. 2. Persistent fever. INTERVAL HISTORY: Patient has been spiking fever, spiking this morning of 101 degrees Fahrenheit. The patient afebrile since then. The patient is breathing comfortably. Denies having any chest pain, shortness of breath or cough. Denies having any abdominal pain. She is having diarrhea per the nursing staff. PHYSICAL EXAMINATION: Blood pressure 117/69 with a pulse of 80, temperature 98.3. She is 98% on 2 L nasal cannula. General description is a middle-aged female lying in bed in no distress. Respiratory system: Unlabored breathing, decreased breath sounds/. No wheeze/ Heart S1, S2. Regular rate and rhythm. No tenderness. LABS: No new labs have been obtained today. DIAGNOSTIC IMPRESSION AND PLAN: Patient with an E coli bacteremia secondary to complicated urinary tract infection in this patient initially improved, but subsequently did spike a fever again. Ultrasound did not show any hydronephrosis. She did not have any postvoid residual. Urine has improved on repeat UA, now with diarrhea, concern is for possible C diff. Will check a stool for C difficile. ( ) can add oral vancomycin. Repeat the blood work tomorrow and monitor clinical course closely. MMODL / IJN: [id number] /
[2021-04-10] MEDS: VANCOMYCIN 125 MG CAPSULE PO SCH ×2 (17:08→21:21)
[2021-04-10] MEDS: POTASSIUM CHLORIDE ER 20 MEQ TAB.ER PO SCH ×2 (18:11→19:10)
[2021-04-10] MEDS: ATORVASTATIN 20 MG TAB PO SCH (21:21)
[2021-04-11] MEDS: HYDROcodone/APAP 5-325MG 1 EACH TAB PO PRN ×3 (04:14→19:24)
[2021-04-11 06:37] LABS: Basophils % (A) 0 %; Eosinophils # (A) 0.1 k/uL (0-0.7); Eosinophils % (A) 1 %; HCT 28.9 % (34.0-46.0); HGB 9.8 gm/dL (11.4-16.0); Lymphocytes # (A) 2.3 k/uL (1.0-4.8); Lymphocytes % (A) 16 %; MCH 33.3 pg (25.0-35.0); MCHC 33.8 g/dL (31.0-37.0); MCV 98.5 fL (80.0-100.0); Mean Platelet Volume 8.9; Monocytes # (A) 0.6 k/uL (0-1.0); Monocytes % (A) 4 %; Neutrophils # (A) 10.9 k/uL (1.3-7.7); Neutrophils % (A) 77 %; Platelet Count 229 k/uL (150-450); RBC 2.94 m/uL (3.80-5.40); RDW 13.8 % (11.5-15.5); WBC 14.2 k/uL (3.8-10.6)
[2021-04-11] MEDS: ALPRAZolam 0.25 MG TAB PO SCH ×2 (07:18→21:14)
[2021-04-11] MEDS: NICOTINE 14MG/24HR PATCH TRANSDERM SCH (07:18)
[2021-04-11] MEDS: METOPROLOL SUCCINATE (ER) 25 MG TAB.ER.24H PO SCH (07:18)
[2021-04-11] MEDS: CHOLECALCIFEROL 25 MCG (1000 IU) TABLET PO SCH (07:18)
[2021-04-11] MEDS: PANTOPRAZOLE 40 MG TABLET PO SCH (07:18)
[2021-04-11] MEDS: VANCOMYCIN 125 MG CAPSULE PO SCH ×4 (07:19→21:14)
[2021-04-11] MEDS: GABAPENTIN 400 MG CAP PO SCH ×3 (07:19→21:13)
[2021-04-11] MEDS: IPRATROPIUM-ALBUTEROL 3 ML NEB INHALATION SCH ×3 (07:52→21:42)
[2021-04-11] MEDS: SODIUM CHLORIDE 0.9% 1,000 ML IV SCH (10:27)
--- NOTE | 2021-04-11 12:13 | P.PN ---
Subjective Progress Note Date: 04/11/21 Principal diagnosis: Anemia and leukocytosis Hemoglobin 9.8, increased respiratory effort today. Chest xray ordered Objective - Vital Signs Vital signs: Vital Signs Temp 99.1 F 04/11/21 10:21 Pulse 76 04/11/21 10:21 Resp 16 04/11/21 10:21 BP 103/56 04/11/21 05:00 Pulse Ox 96 04/11/21 10:21 Intake & Output 04/10/21 04/11/21 04/11/21 18:59 06:59 18:59 Intake Total 650 100 480 Balance 650 100 480 Intake: Intake, IV Titration 410 Amount Sodium Chloride 0.9% 1, 360 000 ml @ 30 mls/hr IV . Q24H [facility] Rx#:[id number] cefTRIAXone 2 gm In 50 Sodium Chloride 0.9% 50 ml @ 100 mls/hr IVPB Q24HR [facility] Rx#:[id number] Oral 240 100 480 Other: Voiding Method Bedside Commode Bedside Commode # Voids 2 3 # Bowel Movements 1 - Exam - Constitutional General appearance: average body habitus, cooperative, no acute distress - EENT no wet purpura Eyes: anicteric sclerae, EOMI ENT: hearing grossly normal, normal oropharynx - Neck Neck: no lymphadenopathy - Respiratory Respiratory: bilateral: CTA - Cardiovascular Rhythm: regular Heart sounds: normal: S1, S2 Abnormal Heart Sounds: no systolic murmur, no diastolic murmur, no rub, no S3 Gallop, no S4 Gallop, no click, no other leg Peripheral Edema: bilateral: None - Gastrointestinal fullness in the upper quadrants, no rebound General gastrointestinal: distended, normal bowel sounds, soft - Integumentary no petechiae on the chest, abdomen, legs. She does have a few bruises on the forearms, no hematomas. No blood around IV insertion site, no gross blood visible in Stein - Neurologic Neurologic: CNII-XII intact - Musculoskeletal Musculoskeletal: strength equal bilaterally - Psychiatric Psychiatric: A&O x's 3, appropriate affect, intact judgment & insight - Labs CBC & Chem 7: 04/11/21 05:34 04/11/21 05:34 Labs: Abnormal Lab Results - Last 24 Hours (Table) 04/10/21 04/10/21 04/11/21 Range/Units 16:08 16:08 05:34 WBC 13.2 H 14.2 H (3.8-10.6) k/uL RBC 2.98 L 2.94 L (3.80-5.40) m/uL Hgb 10.0 L 9.8 L (11.4-16.0) gm/dL Hct 29.6 L 28.9 L (34.0-46.0) % Neutrophils # 10.9 H (1.3-7.7) k/uL Sodium 135 L (137-145) mmol/L Potassium 3.0 L (3.5-5.1) mmol/L Glucose 125 H (74-99) mg/dL Microbiology - Last 24 Hours (Table) 04/05/21 04:12 Blood Culture - Final Blood No Growth after 144 hours 04/08/21 23:29 Blood Culture - Preliminary Blood No Growth after 48 hours 04/08/21 22:01 Blood Culture - Preliminary Blood No Growth after 48 hours 04/10/21 10:35 Stool Culture - Preliminary Stool 04/09/21 14:30 Urine Culture - Final Urine,Voided Assessment and Plan Plan: CT scan - abdomen: report reviewed CT scan - pelvis: report reviewed Assessment and Plan (1) Thrombocytopenia Current Visit: Yes Status: Acute Priority: High Code(s): D69.6 - THROMBOCYTOPENIA, UNSPECIFIED SNOMED Code(s): 833769013 (2) Normocytic normochromic anemia Current Visit: Yes Status: Acute Priority: High Code(s): D64.9 - ANEMIA, UNSPECIFIED SNOMED Code(s): 97847522 Plan: - COntinue to monitor CBC, stable at this time, no intervention required - Chest Xray - Incentive spirometer to bedside - Encourage to increase activity
--- NOTE | 2021-04-11 13:02 | XR ---
EXAMINATION TYPE: XR chest 2V DATE OF EXAM: 04/11/2021 COMPARISON: Chest x-ray 1 week ago and older studies. HISTORY: Difficulty in breathing. TECHNIQUE: Frontal and lateral views of the chest are obtained. FINDINGS: There are chronic emphysematous and parenchymal fibrotic changes bilaterally redemonstrate d with some new right basilar opacity confirmed on 2 views. There are new small to tiny right greater than left pleural effusions. Cardiac silhouette size is stable and within normal limits. Osseous str uctures are intact. Cholecystectomy clips noted on lateral view. IMPRESSION: Chronic changes with new right lower lobe acute infiltrate and/or atelectasis and new sm all to tiny right greater than left pleural effusions.
[2021-04-11 13:13] LABS: African American GFR (CKD) 92.9 (60.0-200.0); Anion Gap 7.7 mmol/L (4.00-12.00); BUN/Creat Ratio 13.75 Ratio (12.00-20.00); Calcium 8.1 mg/dL (8.7-10.3); Carbon Dioxide 21.3 mmol/L (21.6-31.8); Non-African American GFR(CKD) 80.1 (60.0-200.0); Potassium 3.7 mmol/L (3.5-5.5)
--- NOTE | 2021-04-11 14:12 | PN ---
PROGRESS NOTE DATE OF SERVICE: 04/11/2021. REASON FOR FOLLOW UP: E coli UTI and bacteremia. INTERVAL HISTORY: The patient's overall fever pattern has improved. She did have a low-grade fever of 99.1 this morning. The patient overall feeling better. Breathing comfortably. Denies any chest pain, shortness of breath. No cough. No abdominal pain. Diarrhea has resolved. PHYSICAL EXAMINATION: Blood pressure 148/72 with a pulse of 80. Temperature 99.1. Sating 95% on 2 L nasal cannula. General Description is a middle-aged female lying in bed in no distress. Respiratory system: Unlabored breathing, clear to auscultation anteriorly. HEART: S1, S2. Regular rate and rhythm. ABDOMEN: Soft, no tenderness. LABS: White count slightly up at 14.2. Blood culture repeat has been negative so far. Repeat urine is negative. DIAGNOSTIC IMPRESSION AND PLAN: 1. Patient with E coli urinary tract infection and bacteremia. Complicated urinary tract infection. Repeat ultrasound did not show any hydronephrosis. The patient to finish therapy with of oral Cipro. 2. Patient did have diarrhea with concern for C diff in view of the fever and white count. Recommend a short course of oral vancomycin and . MMODL / IJN: [id number] /
--- NOTE | 2021-04-11 14:54 | P.PN ---
Subjective Progress Note Date: 04/11/21 This is 60-year-old female with a past medical history of coronary artery disease, CVA, GERD, hypertension, VA, and nicotine dependence, presented to the ER with complaints of right flank pain radiating to the groin that started earlier in the a.m. accompanied by nausea, vomiting, weakness and shortness of breath. Denies fever or chills. Denies any chest pain, palpitations. Denies any lightheadedness, dizziness or focal deficits. Hypertensive, tachycardic, febrile with borderline hypoxia on admission.WBC 20.9, hemoglobin 11.4, platelets 117. Lactic acid 3.8, 2.1, 3.0. Became Hypotensive, received a total of 4 L of IV fluids. Currently lactic acid decreased to 1.8. requiring 5 L nasal cannula and maintaining O2 sats in the 90s. Chest x-ray reported mild interstitial infiltrates, subsegmental atelectasis at bilateral bases similar to prior exam. CT of abdomen and pelvis reported right sided hydronephrosis and hydroureter with perinephric edema that could relate to non-opaque obstructing stone or recently passed stone. Common bile duct large, measuring up to 13 mm. sodium 135, potassium 4.4 BUN 30, creatinine 1.93. Magnesium 1.4, repeat level pending. Elevated LFTs, improving .UA reporting greater than 182 WBCs, large leukocytes, negative nitrate. Urine and blood cultures obtained .Maintained on IV fluids and IV antibiotics. Evaluated by urology, with no surgical intervention recommended at this time. IV fluids and IV antibiotics of ceftriaxone initiated 04/04/2021 maintained on IV fluid resuscitation of 130 MLS per hour, Rocephin. Positive bowel movement yesterday. Complaining of persistent right flank pain, radiating to mid abdomen. Renal function improving, creatinine down to 1.5. Currently afebrile, T-max 100.1. preliminary blood cultures reporting E. coli, p reliminary urine culture reporting gram-negative bacilli. WBC decreased to 11.9. Mild tachycardia.Denies chest pain, palpitations or shortness of breath. Denies lightheadedness, dizziness or focal deficits. Maintaining O2 sats in the 90s on 5 L nasal cannula. Chest x-ray reporting chronic perforation while changes without acute pulmonary process. Hemoglobin 11, platelets 83. 04/05/2021 Patient had been receiving fluid resuscitation, possible mild fluid overload, IV fluids decreased, received a dose of Lasix IV push, diuresed well with 24-hour I&O reflecting a negative fluid balance .requesting Stein catheter be discontinued, defer to urology. Evaluated by surgery regarding worsening abdominal pain/distention, radiology studies reviewed,attributed to an ileus. Urine with E. coli ,Bacteremic with E. coli , evaluated by infectious disease. Repeat blood culture in progress. Continues on IV antibiotics. T-max of 102.2, WBC within normal limits. Hemoglobin 10.6, Platelets continue trending down ,66. Potassium 3.2, creatinine down to 1.21. No further diarrhea. 04/06/2021 maintaining O2 sats in the 90s on 5 L nasal cannula. Antibiotics as ID. T-max 100.8, and WBC 11.2. Hemoglobin 11, platelets 72. Sodium 132, potassium 3.4-receiving supplementation, bicarb 21. Renal function improving, creatinine down to 0.98. Positive diarrhea, tested negative for C. diff. tolerating full liquid diet, denies nausea or vomiting. Denies abdominal pain. Denies chest pain, palpitations or shortness of breath. Denies lightheadedness, dizziness or focal deficits. 04/09/2021 urine and blood cultures positive for E. coli. maintained on IV antibiotics of Rocephin as per infectious disease. Renal function stable. T-max 101.2, WBC 17.4. Denies any cough, congestion. Denies any nausea vomiting or diarrhea. Denies any chest pain, palpitations. Staff reports patient ambulatin g with assistance to and from bathroom, tolerating exertion well. Alert and oriented 3. Staff reports occasionally disoriented upon awakening, but then quickly resolves. Evaluated by psychiatry with recommendations noted and appreciated. Denies lightheadedness, dizziness or focal deficits. Denies chest pain, palpitations or shortness of breath. 04/10/2021 IV antibiotics as per ID. T-max 101.1. Repeat Urine culture pending. Repeat blood cultures of 04/08 reporting no growth at 24 hours. Completed repeat renal/bladder ultrasound reporting no hydronephrosis or masses of left kidney, mild right pelviectasis, bladder within normal limits. Alert and oriented 3. Ambulating, tolerating exertion well. Maintaining O2 sats in the high 90s on 2 L nasal cannula. Denies chest pain, palpitations or shortness of breath. Denies lightheadedness, dizziness or focal deficits. 04/11/2021 T-max 100.7, WBC 14.2. Repeat urine culture reported no growth ,tested negative for C. difficile. Oral vancomycin initiated as per ID related to concerns for C Diff. secondary to prior diarrhea with fevers and white count. Reports no abdominal pain, no nausea, no vomiting. Positive bowel movement, no diarrhea. Denies memory lapses, confusion or disorientation. Denies lightheadedness, dizziness or focal deficits. Alert and oriented 3. Maintaining O2 sats in the low to mid 90s on 2 L nasal cannula. Denies shortness of breath, cough . Today's chest pain, palpitations . Chest x-ray ordered. Objective - Vital Signs Vital signs: Vital Signs Temp 99.1 F 04/11/21 11:50 Pulse 84 04/11/21 11:50 Resp 18 04/11/21 11:50 BP 148/71 04/11/21 11:50 Pulse Ox 95 04/11/21 11:50 Intake & Output 04/10/21 04/11/21 04/11/21 18:59 06:59 18:59 Intake Total 650 100 960 Balance 650 100 960 Intake: Intake, IV Titration 410 Amount Sodium Chloride 0.9% 1, 360 000 ml @ 30 mls/hr IV . Q[facility]H [facility] Rx#:[id number] cefTRIAXone 2 gm In 50 Sodium Chloride 0.9% 50 ml @ 100 mls/hr IVPB Q24HR [facility] Rx#:[id number] Oral 240 100 960 Other: Voiding Method Bedside Commode Bedside Commode # Voids 2 3 # Bowel Movements 1 - Exam PHYSICAL EXAM: VITAL SIGNS: As above GENERAL: Alert and oriented 3, Sitting up in chair, no acute distress HEENT: Conjunctivae normal. eyes normal. Oral mucosa moist CARDIOVASCULAR: S1, S2 regular.. No murmur RESPIRATION: CTA with bilateral bases diminished ABDOMEN: Soft, nontender, No guarding. Positive bowel sounds. LEGS: No edema. no swelling NERVOUS SYSTEM: Cranial N 2-12 grossly normal. Moves all 4 limbs. No focal deficits. Strength and sensation grossly intact. Skin: Warm and dry, no rash Microbiology 04/05/21 04:12 Blood Blood Culture - Final No Growth after 144 hours 04/08/21 23:29 Blood Blood Culture - Preliminary No Growth after 48 hours 04/08/21 22:01 Blood Blood Culture - Preliminary No Growth after 48 hours 04/10/21 10:35 Stool Stool Culture - Preliminary 04/09/21 14:30 Urine,Voided Urine Culture - Final 04/02/21 21:40 Blood Blood Culture Gram Stain - Final 04/02/21 21:40 Blood Blood Culture - Final Escherichia coli 04/02/21 21:55 Blood Blood Culture Gram Stain - Final 04/02/21 21:55 Blood Blood Culture - Final Escherichia coli 04/02/21 20:50 Urine,Clean Catch Urine Culture - Final Escherichia coli 04/02/21 21:40 Blood Blood Culture - Final 04/02/21 21:55 Blood Blood Culture - Final - Labs CBC & Chem 7: 04/11/21 05:34 04/11/21 05:34 Labs: Abnormal Lab Results - Last 24 Hours (Table) 04/10/21 04/10/21 04/11/21 Range/Units 16:08 16:08 05:34 WBC 13.2 H 14.2 H (3.8-10.6) k/uL RBC 2.98 L 2.94 L (3.80-5.40) m/uL Hgb 10.0 L 9.8 L (11.4-16.0) gm/dL Hct 29.6 L 28.9 L (34.0-46.0) % Neutrophils # 10.9 H (1.3-7.7) k/uL Sodium 135 L (137-145) mmol/L Potassium 3.0 L (3.5-5.1) mmol/L Carbon Dioxide (21.6-31.8) mmol/L Glucose 125 H (74-99) mg/dL Calcium (8.7-10.3) mg/dL 04/11/21 Range/Units 05:34 WBC (3.8-10.6) k/uL RBC (3.80-5.40) m/uL Hgb (11.4-16.0) gm/dL Hct (34.0-46.0) % Neutrophils # (1.3-7.7) k/uL Sodium (137-145) mmol/L Potassium (3.5-5.1) mmol/L Carbon Dioxide 21.3 L (21.6-31.8) mmol/L Glucose (74-99) mg/dL Calcium 8.1 L (8.7-10.3) mg/dL Microbiology - Last 24 Hours (Table) 04/05/21 04:12 Blood Culture - Final Blood No Growth after 144 hours 04/08/21 23:29 Blood Culture - Preliminary Blood No Growth after 48 hours 04/08/21 22:01 Blood Culture - Preliminary Blood No Growth after 48 hours 04/10/21 10:35 Stool Culture - Preliminary Stool 04/09/21 14:30 Urine Culture - Final Urine,Voided Assessment and Plan Assessment: Sepsis with Septic shock secondary to acute right pyelonephritis, right hydroureteronephrosis -etiology unclear, bacteremia and UTI, present on admission, Acute UTI with E. coli Bacteremia with E. coli Acute metabolic encephalopathy secondary to all the above, ileus, resolved Acute renal failure, improving Bibasilar atelectasis, Thrombocytopenia of unclear etiology, possibly related to sepsis, hematology following, CAD, history of VA Gastroesophageal reflux disease History of CVA History of cervical cancer Anxiety Depression Ongoing nicotine dependence Plan: Continue on current medication regime ,monitoring and symptomatic treatment. Persistent fevers, antibiotics further adjusted as per ID, as mentioned above. Chest x-ray ordered. The impression and plan of care has been dictated as directed. : I performed a history and examination of this patient, discussed the same with the dictator. I agree with the dictator's note ,documented as a scribe. Any additional findings or plans will be noted.
[2021-04-11 19:52] VITALS: RESP 16
[2021-04-11] MEDS: ATORVASTATIN 20 MG TAB PO SCH (21:14)
[2021-04-12] MEDS: CHOLECALCIFEROL 25 MCG (1000 IU) TABLET PO SCH (07:43)
[2021-04-12] MEDS: METOPROLOL SUCCINATE (ER) 25 MG TAB.ER.24H PO SCH (07:43)
[2021-04-12] MEDS: ALPRAZolam 0.25 MG TAB PO SCH (07:43)
[2021-04-12] MEDS: PANTOPRAZOLE 40 MG TABLET PO SCH (07:44)
[2021-04-12] MEDS: HYDROcodone/APAP 5-325MG 1 EACH TAB PO PRN (07:44)
[2021-04-12] MEDS: VANCOMYCIN 125 MG CAPSULE PO SCH ×2 (07:45→11:39)
[2021-04-12] MEDS: NICOTINE 14MG/24HR PATCH TRANSDERM SCH ×2 (07:45→07:50)
[2021-04-12] MEDS: GABAPENTIN 400 MG CAP PO SCH (07:45)
[2021-04-12 08:20] LABS: Basophils # (A) 0.1 k/uL (0-0.2); Basophils % (A) 0 %; Eosinophils # (A) 0.1 k/uL (0-0.7); Eosinophils % (A) 1 %; Lymphocytes # (A) 2.3 k/uL (1.0-4.8); Lymphocytes % (A) 18 %; MCHC 32.3 g/dL (31.0-37.0); MCV 99.1 fL (80.0-100.0); Mean Platelet Volume 8.9; Monocytes # (A) 0.6 k/uL (0-1.0); Monocytes % (A) 5 %; Neutrophils # (A) 9.7 k/uL (1.3-7.7); Neutrophils % (A) 75 %; Platelet Count 295 k/uL (150-450); RBC 3.13 m/uL (3.80-5.40); RDW 14.1 % (11.5-15.5)
[2021-04-12] MEDS: IPRATROPIUM-ALBUTEROL 3 ML NEB INHALATION SCH (09:05)
[2021-04-12 11:49] VITALS: BP 106/66; PULSE 92; TEMP 98
--- NOTE | 2021-04-12 12:09 | PN ---
PROGRESS NOTE DATE OF SERVICE: 04/12/2021 REASON FOR FOLLOWUP: 1. E coli bacteremia and UTI. 2. Possible C difficile. INTERVAL HISTORY: Patient is afebrile. The patient is breathing comfortably. The patient denies having any chest pain. No shortness of breath or cough. No abdominal pain. Diarrhea has resolved. PHYSICAL EXAMINATION: VITAL SIGNS: Blood pressure 113/57, pulse of 91, temperature 98.5, she is 96% on 2 L nasal cannula. GENERAL DESCRIPTION: A middle-aged female up in the bed in no distress. RESPIRATORY SYSTEM: Unlabored breathing, decreased breath sounds at the bases, no wheeze. HEART: S1, S2. Regular rate and rhythm. ABDOMEN: Soft, no guarding, no rigidity, no organomegaly. LABS: White count is down to 13. DIAGNOSTIC IMPRESSION/PLAN: 1. Patient with E coli urinary tract infection and bacteremia which is pansensitive. Repeat blood culture has been negative. Repeat ultrasound did not show any hydronephrosis. Patient to finish a course of oral . 2. Patient with diarrhea with fever and elevated white count. Concern for C diff. Stool was negative. However, she responded to oral vancomycin, to continue for another 10 days. Prescription has been sent to the pharmacy and close outpatient followup. MMODL / IJN: [id number] /
--- NOTE | 2021-04-12 12:21 | P.DS ---
Providers Date of admission: 04/02/21 22:13 Expected date of discharge: 04/12/21 Attending physician: Raad Best Consults: 04/02/21 22:39 Consult Physician Stat Consulting Provider: Denzel Khan Consult Reason/Comments: ICU management Do you want consulting provider notified?: Already Contacted Consult Physician Urgent Consulting Provider: Yeison Vega Consult Reason/Comments: Ureteral obstruction versus pyelonephritis Do you want consulting provider notified?: Already Contacted 04/04/21 14:28 Consult Physician Stat Consulting Provider: Giovanna Meraz Consult Reason/Comments: increased abominal pain and distention Do you want consulting provider notified?: Yes 04/04/21 15:36 Consult Physician Routine Consulting Provider: Yan Hollis Consult Reason/Comments: septic shock,bacteremia,pylo/ UTI Do you want consulting provider notified?: Yes 04/05/21 12:47 Consult Physician Routine Consulting Provider: Alfredo Alfonso Consult Reason/Comments: Thrombocytopenia, sepsis, septic shock Do you want consulting provider notified?: Yes 04/06/21 10:51 Consult Physician Routine Consulting Provider: Cesar Jain Consult Reason/Comments: Altered Mental status/ Delusions Do you want consulting provider notified?: Already Contacted Primary care physician: Raad Best Hospital Course: Final Diagnoses: Hospital course:This is 60-year-old female with a past medical history of coronary artery disease, CVA, GERD, hypertension, [place], and nicotine dependence, presented to the ER with complaints of right flank pain radiating to the groin that started earlier in the a.m. accompanied by nausea, vomiting, weakness and shortness of breath. Denies fever or chills. Denies any chest pain, palpitations. Denies any lightheadedness, dizziness or focal deficits. Hypertensive, tachycardic, febrile with borderline hypoxia on admission.WBC 20.9, hemoglobin 11.4, platelets 117. Lactic acid 3.8, 2.1, 3.0. Became Hypotensive, received a total of 4 L of IV fluids. Currently lactic acid decreased to 1.8. requiring 5 L nasal cannula and maintaining O2 sats in the 90s. Chest x-ray reported mild interstitial infiltrates, subsegmental atelectasis at bilateral bases similar to prior exam. CT of abdomen and pelvis reported right sided hydronephrosis and hydroureter with perinephric edema that could relate to non-opaque obstructing stone or recently passed stone. Common bile duct large, measuring up to 13 mm. sodium 135, potassium 4.4 BUN 30, creatinine 1.93. Magnesium 1.4, repeat level pending. Elevated LFTs, improving .UA reporting greater than 182 WBCs, large leukocytes, negative nitrate. Urine and blood cultures obtained .Maintained on IV fluids and IV antibiotics. Evaluated by urology, with no surgical intervention recommended at this time. IV fluids and IV antibiotics of ceftriaxone initiated 04/04/2021 maintained on IV fluid resuscitation of 130 MLS per hour, Rocephin. Positive bowel movement yesterday. Complaining of persistent right flank pain, radiating to mid abdomen. Renal function improving, creatinine down to 1.5. Currently afebrile, T-max 100.1. preliminary blood cultures reporting E. coli, preliminary urine culture reporting gram-negative bacilli. WBC decreased to 11.9. Mild tachycardia.Denies chest pain, palpitations or shortness of breath. Denies lightheadedness, dizziness or focal deficits. Maintaining O2 sats in the 90s on 5 L nasal cannula. Chest x-ray reporting chronic perforation while changes without acute pulmonary process. Hemoglobin 11, platelets 83. 04/05/2021 Patient had been receiving fluid resuscitation, possible mild fluid overload, IV fluids decreased, received a dose of Lasix IV push, diuresed well with 24-hour I&O reflecting a negative fluid balance .requesting Stein catheter be discontinued, defer to urology. Evaluated by surgery regarding worsening abdominal pain/distention, radiology studies reviewed,attributed to an ileus. Urine with E. coli ,Bacteremic with E. coli , evaluated by infectious disease. Repeat blood culture in progress. Continues on IV antibiotics. T-max of 102.2, WBC within normal limits. Hemoglobin 10.6, Platelets continue trending down ,66. Potassium 3.2, creatinine down to 1.21. No further diarrhea. 04/06/2021 maintaining O2 sats in the 90s on 5 L nasal cannula. Antibiotics as ID. T-max 100.8, and WBC 11.2. Hemoglobin 11, platelets 72. Sodium 132, potassium 3.4-receiving supplementation, bicarb 21. Renal function improving, creatinine down to 0.98. Positive diarrhea, tested negative for C. diff. tolerating full liquid diet, denies nausea or vomiting. Denies abdominal pain. Denies chest pain, palpitations or shortness of breath. Denies lightheadedness, dizziness or focal deficits. 04/09/2021 urine and blood cultures positive for E. coli. maintained on IV antibiotics of Rocephin as per infectious disease. Renal function stable. T-max 101.2, WBC 17.4. Denies any cough, congestion. Denies any nausea vomiting or diarrhea. Denies any chest pain, palpitations. Staff reports patient ambulating with assistance to and from bathroom, tolerating exertion well. Alert and oriented 3. Staff reports occasionally disoriented upon awakening, but then quickly resolves. Evaluated by psychiatry with recommendations noted and appreciated. Denies lightheadedness, dizziness or focal deficits. Denies chest pain, palpitations or shortness of breath. 04/10/2021 IV antibiotics as per ID. T-max 101.1. Repeat Urine culture pending. Repeat blood cultures of 04/08 reporting no growth at 24 hours. Completed repeat renal/bladder ultrasound reporting no hydronephrosis or masses of left kidney, mild right pelviectasis, bladder within normal limits. Alert and oriented 3. Ambulating, tolerating exertion well. Maintaining O2 sats in the high 90s on 2 L nasal cannula. Denies chest pain, palpitations or shortness of breath. Denies lightheadedness, dizziness or focal deficits. 04/11/2021 T-max 100.7, WBC 14.2. Repeat urine culture reported no growth ,tested negative for C. difficile. Oral vancomycin initiated as per ID related to concerns for C Diff. secondary to prior diarrhea with fevers and white count. Reports no abdominal pain, no nausea, no vomiting. Positive bowel movement, no diarrhea. Denies memory lapses, confusion or disorientation. Denies lightheadedness, dizziness or focal deficits. Alert and oriented 3. Maintaining O2 sats in the low to mid 90s on 2 L nasal cannula. Denies shortness of breath, cough . Today's chest pain, palpitations . Chest x-ray ordered. Significant clinical improvement, cleared by infectious disease for discharge. Afebrile. Patient will be discharged home today in stable condition with guarded prognosis. Recommending pain management with Dr. Diaz be further adjusted. Patient states after taking pain management regimen at home, she sleeps all day long. While inpatient, pain management decreased, as patient was disoriented with significant clinical improvement. Aspirin currently on hold, reevaluate at follow-up visit with PCP. The impression and plan of care has been dictated as directed. : I performed a history and examination of this patient, discussed the same with the dictator. I agree with the dictator's note ,documented as a scribe. Any additional findings or plans will be noted. Patient Condition at Discharge: Stable Plan - Discharge Summary Discharge Rx Participant: No New Discharge Prescriptions: New Acetaminophen Tab [Tylenol] 650 mg PO Q6HR PRN tab PRN Reason: Fever And/ Or Pain Ciprofloxacin HCl [Cipro] 500 mg PO Q12H 7 Days #14 tab Nicotine 14Mg/24Hr Patch [Habitrol] 1 patch TRANSDERM DAILY patch Pantoprazole [Protonix] 40 mg PO DAILY #30 tablet. Vancomycin HCl [Vancomycin HCl Oral Soln] 125 mg PO Q6HR #40 dose Continue Gabapentin 800 mg PO TID Cholecalciferol [Vitamin D3 (25 Mcg = 1000 Iu)] 25 mcg PO DAILY Metoprolol Succinate (ER) [Toprol XL] 12.5 mg PO DAILY Atorvastatin [Lipitor] 20 mg PO HS ALPRAZolam [Xanax] 0.25 mg PO BID Changed HYDROcodone/APAP 10-325MG [[place] 10-325] 0.5 tab PO TID PRN #0 PRN Reason: Pain Discontinued Cyclobenzaprine [Flexeril] 10 mg PO TID Ibuprofen [Motrin] 800 mg PO TID PRN PRN Reason: Pain Citalopram Hydrobromide [CeleXA] 40 mg PO DAILY Acetaminophen [Tylenol Extra Strength] 1,000 mg PO Q6H PRN PRN Reason: Pain Discharge Medication List Gabapentin 800 mg PO TID 08/22/14 [History] ALPRAZolam [Xanax] 0.25 mg PO BID 04/02/21 [History] Atorvastatin [Lipitor] 20 mg PO HS 04/02/21 [History] Cholecalciferol [Vitamin D3 (25 Mcg = 1000 Iu)] 25 mcg PO DAILY 04/02/21 [History] Metoprolol Succinate (ER) [Toprol XL] 12.5 mg PO DAILY 04/02/21 [History] Acetaminophen Tab [Tylenol] 650 mg PO Q6HR PRN tab 04/12/21 [Rx] Ciprofloxacin HCl [Cipro] 500 mg PO Q12H 7 Days #14 tab 04/12/21 [Rx] HYDROcodone/APAP 10-325MG [[place] 10-325] 0.5 tab PO TID PRN #0 04/12/21 [Rx] Nicotine 14Mg/24Hr Patch [Habitrol] 1 patch TRANSDERM DAILY patch 04/12/21 [Rx] Pantoprazole [Protonix] 40 mg PO DAILY #30 tablet. 04/12/21 [Rx] Vancomycin HCl [Vancomycin HCl Oral Soln] 125 mg PO Q6HR #40 dose 04/12/21 [Rx] Follow up Appointment(s)/Referral(s): Yeison Vega MD [STAFF PHYSICIAN] - 2 Weeks (office will call patient to schedule appt.) Raad Best DO [Primary Care Provider] - 04/24/21 8:10 am [facility] Visiting Nurse, [NON-STAFF] - 1-2 Days Patient Instructions/Handouts: Pantoprazole (By mouth), Urinary Tract Infection in Women (DC), Bacteremia (DC) Activity/Diet/Wound Care/Special Instructions: Pending final DC recommendations/antibiotics, clearance from ID. O2 sat on room air after ambulation pending. Recommending pain management with Dr. Diaz be further adjusted. Patient states after taking pain management regimen at home, she sleeps all day long. While inpatient, pain management decreased, as patient was disoriented with significant clinical improvement. Aspirin currently on hold, reevaluate at follow-up visit with PCP Discharge Disposition: HOME SELF-CARE
[2021-04-12 13:45] LABS: African American GFR (CKD) 92.9 (60.0-200.0); Anion Gap 9.1 mmol/L (4.00-12.00); BUN/Creat Ratio 12.5 Ratio (12.00-20.00); Calcium 8.4 mg/dL (8.7-10.3); Carbon Dioxide 20.9 mmol/L (21.6-31.8); Non-African American GFR(CKD) 80.1 (60.0-200.0); Potassium 3.8 mmol/L (3.5-5.5)
== END 2021-04-12 12:10 | disposition home or self-care (01) | DRG 871 ==
LOC: EC 18:49 → 4SSUR 22:13 → 2SICU 04-03 01:30 → 5NMEDONC 04-06 21:59
PROVIDERS: ADMIT Family Medicine; ATTEND Family Medicine
DX: A41.51 Sepsis due to Escherichia coli [E. coli] (principal); R65.21 Severe sepsis with septic shock; G93.41 Metabolic encephalopathy; N10 Acute pyelonephritis; N17.9 Acute kidney failure, unspecified; E87.2 Acidosis; F05 Delirium due to known physiological condition; J98.11 Atelectasis; K56.7 Ileus, unspecified; N13.6 Pyonephrosis; D64.9 Anemia, unspecified; D69.6 Thrombocytopenia, unspecified; E78.5 Hyperlipidemia, unspecified; F17.210 Nicotine dependence, cigarettes, uncomplicated; F32.9 Major depressive disorder, single episode, unspecified; F41.9 Anxiety disorder, unspecified; I10 Essential (primary) hypertension; I25.10 Atherosclerotic heart disease of native coronary artery without angina pectoris; I25.2 Old myocardial infarction; K21.9 Gastro-esophageal reflux disease without esophagitis; N13.70 Vesicoureteral-reflux, unspecified; R09.02 Hypoxemia; S50.11XA Contusion of right forearm, initial encounter; S50.12XA Contusion of left forearm, initial encounter; Z20.822 Contact with and (suspected) exposure to COVID-19; Z98.890 Other specified postprocedural states; Z90.49 Acquired absence of other specified parts of digestive tract; Z98.51 Tubal ligation status; Z79.82 Long term (current) use of aspirin; Z79.899 Other long term (current) drug therapy; Z85.41 Personal history of malignant neoplasm of cervix uteri; Z86.73 Personal history of transient ischemic attack (TIA), and cerebral infarction without residual deficits; Z90.710 Acquired absence of both cervix and uterus; Z95.5 Presence of coronary angioplasty implant and graft; Z88.5 Allergy status to narcotic agent; Z88.0 Allergy status to penicillin; Z88.8 Allergy status to other drugs, medicaments and biological substances; Z80.0 Family history of malignant neoplasm of digestive organs
CPT/HCPCS: 36415; 71045; 71046; 74018; 74176; 76770; 80048; 80053; 80076; 81001; 82607; 82728; 82746; 82747; 83010; 83540; 83550; 83605; 83615; 83690; 83735; 83880; 83921; 84132; 84484; 85025; 85027; 85384; 85610; 85730; 86140; 87040; 87045; 87046; 87077; 87086; 87186; 87324; 87635; 93005; 94640; 94760; 96361; 96365; 96375; 99291

== ENCOUNTER → 2021-06-14 | Outpatient (CLI) | payer BC, OTHER ==
--- NOTE | 2021-06-14 11:00 | US ---
EXAMINATION TYPE: US kidneys/renal and bladder DATE OF EXAM: 06/14/2021 COMPARISON: US 04/09/21, CT 04/04/21 CLINICAL HISTORY: 60-year-old female N13.30 Unspecified hydronephrosis. EXAM MEASUREMENTS: Right Kidney: 10.2 x 4.8 x 4.4 cm Left Kidney: 11.1 x 5.0 x 4.5 cm Right Kidney: No hydronephrosis or masses seen Left Kidney: No hydronephrosis or masses seen Bladder: Not distended. Inadequately assessed Bilateral Jets seen: No Normal Post Void Residual: Not calculated IMPRESSION: No hydronephrosis. Underdistention of the bladder limits its evaluation.
== END | disposition home or self-care (01) ==
LOC: RADUSWWP 07:27
PROVIDERS: ATTEND Urology
DX: N13.30 Unspecified hydronephrosis (principal)
CPT/HCPCS: 76770

== ENCOUNTER → 2021-08-31 | Outpatient (CLI) | payer BC, OTHER ==
--- NOTE | 2021-09-03 11:27 | MM ---
Reason for exam: screening (asymptomatic). Last mammogram was performed 7 years and 9 months ago. History: Patient is postmenopausal and has history of other cancer at age 40. Family history of breast cancer in aunt at age 50. Physical Findings: A clinical breast exam by your physician is recommended on an annual basis and results should be correlated with mammographic findings. MG Screening Mammo w CAD Bilateral CC and MLO view(s) were taken. Prior study comparison: December 01, 2013, [facility] DIGITAL LEFT BREAST MAMMOGRAM w/CAD. November 29, 2013, bilateral digital screening mammo w/CAD. The breast tissue is heterogeneously dense. This may lower the sensitivity of mammography. Finding #1: There is a 5 mm obscured round mass in the anterior position of the right breast CC only. Finding #2: There are typically benign round calcifications in both breasts. New finding since December 01, 2013 and November 29, 2013. ASSESSMENT: Incomplete: need additional imaging evaluation, BI-RAD 0 RECOMMENDATION: Special view mammogram of the right breast. If lesion persists on supplemental views, image directed ultrasound is recommended. [facility] will attempt to contact patient to return for supplemental views and ultrasound if indicated.
== END | disposition home or self-care (01) ==
LOC: RADMAMWWP 07:46
PROVIDERS: ATTEND Family Medicine
DX: Z12.31 Encounter for screening mammogram for malignant neoplasm of breast (principal); Z78.0 Asymptomatic menopausal state; Z80.3 Family history of malignant neoplasm of breast
CPT/HCPCS: 77067

== ENCOUNTER → 2021-09-05 | Outpatient (CLI) | payer BC, OTHER ==
--- NOTE | 2021-09-05 11:14 | MM ---
Reason for exam: additional evaluation requested from abnormal screening. Last mammogram was performed less than 1 month ago. History: Patient is postmenopausal and has history of other cancer at age 40. Family history of breast cancer in aunt at age 50. Physical Findings: Nurse did not find any significant physical abnormalities on exam. MG Work Up Mamm w CAD RT Spot compression CC and ML view(s) were taken of the right breast. Prior study comparison: August 31, 2021, bilateral MG screening mammo w CAD. December 01, 2013, [facility] DIGITAL LEFT BREAST MAMMOGRAM w/CAD. The breast tissue is heterogeneously dense. This may lower the sensitivity of mammography. No persisting abnormality on spot compression. These results were verbally communicated with the patient and result sheet given to the patient on 09/05/21. ASSESSMENT: Incomplete: need additional imaging evaluation, BI-RAD 0 RECOMMENDATION: Ultrasound of the right breast.
--- NOTE | 2021-09-05 11:16 | USB ---
Reason for exam: additional evaluation requested from abnormal screening. History: Patient is postmenopausal and has history of other cancer at age 40. Family history of breast cancer in aunt at age 50. US Breast Workup RT Right complete breast ultrasound includes all four quadrants, the retroareolar region and axilla. Finding demonstrates no cystic or solid lesion seen. Dense tissues throughout. These results were verbally communicated with the patient and result sheet given to the patient on 09/05/21. ASSESSMENT: Benign, BI-RAD 2 RECOMMENDATION: Return to routine screening mammogram schedule for both breasts.
== END | disposition home or self-care (01) ==
LOC: RADMAMWWP 08:41
PROVIDERS: ATTEND Family Medicine
DX: R92.2 Inconclusive mammogram (principal); Z80.3 Family history of malignant neoplasm of breast
CPT/HCPCS: 77065

== ENCOUNTER 2023-03-26 20:11 | Emergency (ER) | payer OTHER ==
[2023-03-26 20:20] VITALS: BP 113/72; PULSE 92; RESP 18; TEMP 98.8
--- NOTE | 2023-03-26 20:53 | XR ---
EXAMINATION TYPE: XR knee complete LT DATE OF EXAM: 03/26/2023 8:45 PM INDICATION: Patient age:Female; 62 years old; Reason for study: pain with palpation; PHH. COMPARISON: None. TECHNIQUE: The Left knee(s) was examined in frontal, lateral, and oblique projections. FINDINGS: No dislocation. Acute mildly displaced central tibial plateau fracture with depression of t he lateral tibial plateau. Intra-articular extension is present. Acute mildly displaced acute fibular head fracture best appreciated on the lateral view. Moderate suprapatellar joint effusion with lipoh emarthrosis. There is surrounding soft tissue edema. IMPRESSION: 1. Acute mildly displaced central tibial plateau fracture with depression of the lateral tibial plate au. 2. Acute mildly displaced fibular head fracture. 3. Moderate size suprapatellar joint effusion with lipohemarthrosis.
[2023-03-26] MEDS ORDERED: HYDROmorphone 0.5 MG/0.5 ML SYRINGE IM STA (21:08)
--- NOTE | 2023-03-26 21:12 | ED ---
Lower Extremity Injury HPI - General Chief Complaint: Extremity Injury, Lower Stated Complaint: Fall, left knee pain Time Seen by Provider: 03/26/23 20:30 Source: patient, EMS Mode of arrival: EMS Limitations: no limitations - History of Present Illness Initial Comments: Patient is a 62-year-old female who presents to the emergency department for follow-up. Patient tripped while gardening landing on her left knee. Patient has significant pain in the left knee worse with flexion. 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 Feng - Related Data Home Medications Medication Instructions Recorded Confirmed Gabapentin 800 mg PO TID 08/22/14 04/02/21 ALPRAZolam [Xanax] 0.25 mg PO BID 04/02/21 04/02/21 Atorvastatin [Lipitor] 20 mg PO HS 04/02/21 04/02/21 Cholecalciferol [Vitamin D3 (25 25 mcg PO DAILY 04/02/21 04/02/21 Mcg = 1000 Iu)] Metoprolol Succinate (ER) [Toprol 12.5 mg PO DAILY 04/02/21 04/02/21 XL] Previous Rx's Medication Instructions Recorded Acetaminophen Tab [Tylenol] 650 mg PO Q6HR PRN tab 04/12/21 Ciprofloxacin HCl [Cipro] 500 mg PO Q12H 7 Days #14 tab 04/12/21 HYDROcodone/APAP 10-325MG [[place] 0.5 tab PO TID PRN #0 04/12/21 10-325] Nicotine 14Mg/24Hr Patch [Habitrol] 1 patch TRANSDERM DAILY patch 04/12/21 Pantoprazole [Protonix] 40 mg PO DAILY #30 tablet. 04/12/21 Vancomycin HCl [Vancomycin HCl 125 mg PO Q6HR #40 dose 04/12/21 Oral Soln] Allergies Allergy/AdvReac Type Severity Reaction Status Date / Time adhesive Allergy BLISTERS Verified 04/02/21 22:38 codeine Allergy Unknown Verified 04/02/21 22:38 Iodine and Iodide Containing Allergy Unknown Verified 04/02/21 22:38 Produc morphine Allergy Swelling Verified 04/02/21 22:38 Penicillins Allergy Swelling Verified 04/02/21 22:38 Review of Systems ROS Statement: Those systems with pertinent positive or pertinent negative responses have been documented in the HPI. ROS Other: All systems not noted in ROS Statement are negative. Past Medical History Past Medical History: Coronary Artery Disease (CAD), Cancer, CVA/TIA, GERD/Reflux, Hypertension, Myocardial Infarction ([place]) Additional Past Medical History / Comment(s): hx cervical cancer, hypoglycemia, lower back and pelvic pain Last Myocardial Infarction Date:: 07/19/2011 History of Any Multi-Drug Resistant Organisms: None Reported Past Surgical History: Back Surgery, Cholecystectomy, Heart Catheterization With Stent, Hysterectomy, Orthopedic Surgery, Tubal Ligation Additional Past Surgical History / Comment(s): RIGHT WRIST, LAPAROSCOPIC SURGERY, heart stent x2 Past Anesthesia/Blood Transfusion Reactions: No Reported Reaction Date of Last Stent Placement:: 07/19/2011 Past Psychological History: Anxiety, Depression Smoking Status: Current every day smoker Past Alcohol Use History: None Reported Past Drug Use History: None Reported - Past Family History Mother Family Medical History: Cancer Additional Family Medical History / Comment(s): tongue General Exam Limitations: no limitations General appearance: alert, in no apparent distress Head exam: Present: atraumatic, normocephalic, normal inspection Cardiovascular Exam: Present: regular rate, normal rhythm, normal heart sounds. Absent: systolic murmur, diastolic murmur, rubs, gallop, clicks GI/Abdominal exam: Present: soft, normal bowel sounds. Absent: distended, tenderness, guarding, rebound, rigid Left Upper Leg exam: Present: normal inspection, full ROM. Absent: tenderness, swelling Knee exam: Present: tenderness (inferior ), swelling. Absent: full ROM (limited due to pain ) Lower Leg exam: Present: normal inspection, full ROM, tenderness (tibial tuberosity ). Absent: laceration, deformity, crepitus, dislocation, erythema Neurovascular tendon exam: Present: no vascular compromise Neurological exam: Present: alert, oriented X3, CN II-XII intact Psychiatric exam: Present: normal affect, normal mood Skin exam: Present: warm, dry, intact, normal color. Absent: rash Course Vital Signs 03/26/23 20:16 Temperature 98.8 F Pulse Rate 92 Respiratory 18 Rate Blood Pressure 113/72 O2 Sat by Pulse 93 L Oximetry Medical Decision Making - Medical Decision Making Was pt. sent in by a medical professional or institution (, PA, ANALYZER SALES, urgent care, hospital, or [facility]...) When possible be specific @ -No Did you speak to anyone other than the patient for history (EMS, parent, family, police, friend...)? What history was obtained from this source @ -No Did you review nursing and triage notes (agree or disagree)? Why? @ -I reviewed and agree with nursing and triage notes Were old charts reviewed (outside hosp., previous admission, EMS record, old EKG, old radiological studies, urgent care reports/EKG's, [facility] records)? Report findings @ -No old charts were reviewed Differential Diagnosis (chest pain, altered mental status, abdominal pain women, abdominal pain men, vaginal bleeding, weakness, fever, dyspnea, syncope, headache, dizziness, GI bleed, back pain, seizure, CVA, palpatations, mental health)? @ -knee fracture, knee sprain, contusion EKG interpreted by me (3pts min.). @ -As above X-rays interpreted by me (1pt min.). @ -Yes, knee x-ray shows an acute mildly displaced central tibial plateau fracture with depression of the lateral tibial plateau. There is also an acute mildly displaced fibular head fracture and moderate sized suprapatellar joint effusion with lipohemarthrosis CT interpreted by me (1pt min.). @ -None done U/S interpreted by me (1pt. min.). @ -None done What testing was considered but not performed or refused? (CT, X-rays, U/S, labs)? Why? @ -None What meds were considered but not given or refused? Why? @ -None Did you discuss the management of the patient with other professionals (professionals i.e. , PA, ANALYZER SAL[employer], lab, RT, psych nurse, clinical social worker, handy worker, teacher, attendance officer, case sealer)? Give summary @ -Yes, Dr. Hernandez who will see patient in the office this week Was smoking cessation discussed for >3mins.? @ -No Was critical care preformed (if so, how long)? @ -No Were there social determinants of health that impacted care today? How? (Homelessness, low income, unemployed, alcoholism, drug addiction, transportation, low edu. Level, literacy, decrease access to med. care, retirement, rehab)? @ -No Was there de-escalation of care discussed even if they declined (Discuss DNR or withdrawal of care, Hospice)? DNR status @ -No What co-morbidities impacted this encounter? (DM, HTN, Smoking, COPD, CAD, Cancer, CVA, ARF, Chemo, Hep., AIDS, mental health diagnosis, sleep apnea, morbid obesity)? @ -None Was patient admitted / discharged? Hospital course, mention meds given and route, prescriptions, significant lab abnormalities, going to OR and other pertinent info. @ -Discharged. Patient has tibial plateau and fibular head fracture. She is neurovascularly intact. She was placed in knee immobilizer and given crutches. She will keep knee immobilizer on and will not bear weight using crutches until orthopedic evaluation. Patient states she would like to see Dr. Feng is referred to Dr. Hernandez if needed Undiagnosed new problem with uncertain prognosis? @ -No Drug Therapy requiring intensive monitoring for toxicity (Heparin, Nitro, I nsulin, Cardizem)? @ -No Were any procedures done? @ -No Diagnosis/symptom? @ -left tibial plateau fracture, left fibular head fracture Acute, or Chronic, or Acute on Chronic? @ -acute Uncomplicated (without systemic symptoms) or Complicated (systemic symptoms)? @ -uncomplicated Side effects of treatment? @ -No Exacerbation, Progression, or Severe Exacerbation? @ -No Poses a threat to life or bodily function? How? (Chest pain, [place], [place], pneumonia, PE, COPD, DKA, ARF, appy, cholecystitis, CVA, Diverticulitis, Homicidal, Suicidal, threat to staff... and all critical care pts) @ -No Dr. Ruano is my attending Disposition Clinical Impression: Tibial plateau fracture, left, Fracture of head of left fibula Disposition: HOME SELF-CARE Condition: Good Instructions (If sedation given, give patient instructions): Leg Fracture (ED) Additional Instructions: Take your prescribed [place] for pain. The norco sent to your pharmacy has been canceled as you are already prescribed this medication. Keep knee immobilizer on and use crutches. Do not bear weight until orthopedic evaluation. Follow-up in one to 2 days. I have referred you to Dr. Hernandez if you have trouble getting in to Dr. Feng. Return to emergency department if you experience new, concerning, or worsening symptoms. Is patient prescribed a controlled substance at d/c from ED?: No Referrals: Raad Best DO [Primary Care Provider] - 1-2 days
== END 2023-03-26 21:49 | disposition home or self-care (01) ==
LOC: EC 20:11
DX: S82.142A Displaced bicondylar fracture of left tibia, initial encounter for closed fracture (principal); S82.492A Other fracture of shaft of left fibula, initial encounter for closed fracture; I10 Essential (primary) hypertension; I25.10 Atherosclerotic heart disease of native coronary artery without angina pectoris; I25.2 Old myocardial infarction; F41.9 Anxiety disorder, unspecified; F17.200 Nicotine dependence, unspecified, uncomplicated; Z79.899 Other long term (current) drug therapy; Z88.0 Allergy status to penicillin; Z88.5 Allergy status to narcotic agent; Z91.09 Other allergy status, other than to drugs and biological substances; Z88.8 Allergy status to other drugs, medicaments and biological substances; Z95.5 Presence of coronary angioplasty implant and graft; Z90.49 Acquired absence of other specified parts of digestive tract; Z86.73 Personal history of transient ischemic attack (TIA), and cerebral infarction without residual deficits; W01.0XXA Fall on same level from slipping, tripping and stumbling without subsequent striking against object, initial encounter
CPT/HCPCS: 73562; 99284; 96372; J1170

== ENCOUNTER → 2023-03-28 | Outpatient (CLI) | payer OTHER ==
--- NOTE | 2023-03-28 12:50 | CT ---
EXAMINATION TYPE: CT knee LT wo con DATE OF EXAM: 03/28/2023 COMPARISON: 03/26/2021 x-ray HISTORY: Left knee pain CT DLP: 295 mGycm Automated exposure control for dose reduction was used. FINDINGS: No dislocation. Acute mildly displaced comminuted central tibial plateau fracture with 3.5 mm depress ion of the lateral tibial plateau. Intra-articular extension is present. There is involvement of both the medial and lateral tibial plateau and extending to the central portion of the tibia. Acute mildly displaced acute fibular head fracture best appreciated on the lateral view. Moderate sup rapatellar joint effusion with lipohemarthrosis. There is surrounding soft tissue edema. IMPRESSION: 1. ACUTE DISPLACED COMMINUTED TIBIAL PLATEAU FRACTURE WITH DEPRESSION OF THE LATERAL TIBIAL PLATEAU. FRACTURE INVOLVES BOTH THE MEDIAL AND LATERAL TIBIAL PLATEAU 2. ACUTE MILDLY DISPLACED FIBULAR HEAD FRACTURE. 3. LIPOHEMARTHROSIS SUPRAPATELLAR BURSA.
== END | disposition home or self-care (01) ==
LOC: RADCTMAIN 11:04
PROVIDERS: ATTEND Orthopaedic Surgery
DX: S82.092A Other fracture of left patella, initial encounter for closed fracture (principal)

== ENCOUNTER → 2024-09-02 | Outpatient (CLI) | payer OTHER ==
[2024-09-02 10:37] LABS: Basophils % (A) 0 %; Eosinophils # (A) 0.2 k/uL (0-0.7); Eosinophils % (A) 3 %; HCT 40.2 % (34.0-46.0); HGB 12.7 gm/dL (11.4-16.0); Lymphocytes # (A) 3.7 k/uL (1.0-4.8); Lymphocytes % (A) 57 %; MCH 33.4 pg (25.0-35.0); MCHC 31.7 g/dL (31.0-37.0); MCV 105.3 fL (80.0-100.0); Macrocytosis Slight; Mean Platelet Volume 7.6; Monocytes # (A) 0.3 k/uL (0-1.0); Monocytes % (A) 5 %; Neutrophils # (A) 2.2 k/uL (1.3-7.7); Neutrophils % (A) 33 %; Platelet Count 234 k/uL (150-450); RBC 3.81 m/uL (3.80-5.40); RDW 13.3 % (11.5-15.5); WBC 6.5 k/uL (3.8-10.6)
[2024-09-02 10:52] LABS: ALT 19 U/L (4-34); AST 27 U/L (14-36); African American GFR (CKD) 70 (>60 ml/min/1.73 sqM); Albumin 3.9 g/dL (3.5-5.0); Albumin/Globulin Ratio 1.7; Alkaline Phosphatase 90 U/L (38-126); Anion Gap 2 mmol/L; Blood Urea Nitrogen 12 mg/dL (7-17); Calcium 9.1 mg/dL (8.4-10.2); Carbon Dioxide 26 mmol/L (22-30); Chloride 110 mmol/L (98-107); Globulin 2.3 g/dL; Glucose 79 mg/dL (74-99); Non-African American GFR(CKD) 61 (>60 ml/min/1.73 sqM); Potassium 4.6 mmol/L (3.5-5.1); Sodium 138 mmol/L (137-145); Total Bilirubin 0.5 mg/dL (0.2-1.3); Total Protein 6.2 g/dL (6.3-8.2)
== END | disposition home or self-care (01) ==
LOC: LABPAT 09:37
PROVIDERS: ATTEND Family Medicine
DX: Z01.812 Encounter for preprocedural laboratory examination (principal); E87.6 Hypokalemia; D72.829 Elevated white blood cell count, unspecified
CPT/HCPCS: 80053; 85025